=== PATIENT | female | born 1995 | race African-American/Black ===

== ENCOUNTER 2020-04-18 16:58 | Emergency (ER) | payer OTHER, SELFPAY ==
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
[2020-04-18 18:30] VITALS: BP 121/64; PULSE 71; RESP 14; TEMP 37; O2SAT 98
[2020-04-18 19:19] VITALS: BP 120/64; PULSE 71; RESP 16; TEMP 37; O2SAT 99; BMI 27.1
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
[2020-04-18 20:30] VITALS: BP 122/90; PULSE 89; RESP 18; TEMP 36.6
== END 2020-04-18 20:45 | disposition home or self-care (01) ==
PROVIDERS: Emergency Provider Emergency Medicine; PCP Internal Medicine
DX: S13.4XXA Sprain of ligaments of cervical spine, initial encounter (principal); V43.52XA Car driver injured in collision with other type car in traffic accident, initial encounter; Y93.89 Activity, other specified; Y92.414 Local residential or business street as the place of occurrence of the external cause; Y99.8 Other external cause status
CPT/HCPCS: 71046; 73030; 99283; 99284

== ENCOUNTER 2020-06-05 14:36 | Outpatient (REF) | payer OTHER, SELFPAY | END 2020-06-05 14:37 | disposition home or self-care (01) | LOC: HO.LAB 14:36 | PROVIDERS: PCP Internal Medicine; Visit Provider Internal Medicine | DX: Z20.828 Contact with and (suspected) exposure to other viral communicable diseases (principal) | CPT/HCPCS: C9803; U0003 ==

== ENCOUNTER 2020-06-05 15:08 | Outpatient (REF) | payer OTHER, SELFPAY ==
[2020-06-05 15:57] LABS: MANUAL DIFF FLAG NO
[2020-06-05 16:00] LABS: Basophils Percent Auto 0.4 % (0-2); Eosinophils Absolute Auto 0.5 X10*3/uL (0.0-0.4); Eosinophils Percent Auto 8.6 % (0-4); Hematocrit 37.1 % (37-47); Hemoglobin 11.1 g/dl (12.0-16.0); Imm Gran Abs Auto 0.01 X10*3/uL (0.00-0.03); Imm Gran Pct Auto 0.2 % (0.0-0.4); Lymphocytes Absolute Auto 1.3 X10*3/uL (1.2-4.9); Lymphocytes Percent Auto 22.9 % (20-40); Mean Corpuscular HGB Conc 29.9 g/dl (31.0-35.0); Mean Corpuscular Hemoglobin 24.1 pg (27.0-33.0); Mean Corpuscular Volume 80.5 fL (80-98); Mean Platelet Volume 10.8 fL (9.4-12.3); Monocytes Absolute Auto 0.4 X10*3/uL (0.1-1.2); Monocytes Percent Auto 7.7 % (2-11); Neutrophils Absolute Auto 3.3 X10*3/uL (2.0-8.3); Neutrophils Percent Auto 60.2 % (45-73); Platelet Count 243 X10*3/uL (160-400); Red Blood Count 4.61 X10*6/uL (4.20-5.50); Red Cell Distribution Width 13.6 % (11.0-16.0); White Blood Count 5.5 X10*3/uL (4.8-10.8)
[2020-06-05 16:32] LABS: Iron 16 mcg/dL (30-160); Percent Iron Saturation 4 % (15-50); Total Iron Binding Capacity 444 mcg/dL (228-428); Unsaturated Iron Binding 428 ug/dL
[2020-06-09 10:12] LABS: Vitamin D 25-OH, D2 <4 ng/mL; Vitamin D 25-OH, D3 21 ng/mL; Vitamin D 25-OH, Total 21 ng/mL (30-100)
== END 2020-06-05 15:09 | disposition home or self-care (01) ==
LOC: HO.LAB 15:08
PROVIDERS: PCP Internal Medicine; Visit Provider Internal Medicine
DX: K92.1 Melena (principal); E55.9 Vitamin D deficiency, unspecified; K60.2 Anal fissure, unspecified; Z79.899 Other long term (current) drug therapy
CPT/HCPCS: 36415; 82306; 83540; 85025; 99212

== ENCOUNTER 2020-09-30 12:16 | Outpatient (REF) | payer OTHER, SELFPAY ==
[2020-10-02 08:10] LABS: HBS Num1 > 1000.00 mIU/mL (0-7.99); HBc Num1 0.07 S/CO (0.00-0.79); Hepatitis B Core Antibody Nonreactive (Nonreactive); ~Hepatitis B Surface Antibody REACTIVE (Nonreactive)
[2020-10-02 08:27] LABS: HBsAGNum1 0.16 S/CO (0.00-0.99); Hepatitis B Surface Antigen Negative (Negative)
== END 2020-09-30 12:17 | disposition home or self-care (01) ==
LOC: HO.LAB 12:16
PROVIDERS: PCP Internal Medicine; Visit Provider Internal Medicine
DX: Z92.29 Personal history of other drug therapy (principal)
CPT/HCPCS: 36415; 86704; 86706; 87340

== ENCOUNTER 2021-01-16 15:41 | Outpatient (REF) | payer OTHER, SELFPAY ==
--- NOTE | ~2021-01-16 | XR_ITS ---
EXAMINATION: XR KNEE, RIGHT CLINICAL INFORMATION: Stiffness of right knee COMPARISON: None TECHNIQUE: Four views of the right knee. FINDINGS: Bones and soft tissues are normal. No fracture or joint effusion. Alignment is anatomic. Joint spaces are well maintained. No abnormal soft tissue calcification. XR/XR knee RT 3V IMPRESSION: Normal right knee.
== END 2021-01-16 15:42 | disposition home or self-care (01) ==
LOC: HO.XRAY 15:41
PROVIDERS: PCP Internal Medicine; Visit Provider Nurse Practitioner Family
DX: M25.661 Stiffness of right knee, not elsewhere classified (principal)
CPT/HCPCS: 73562

== ENCOUNTER 2021-02-18 14:36 | Outpatient (REF) | payer OTHER, SELFPAY ==
[2021-02-18 15:24] LABS: MANUAL DIFF FLAG NO
[2021-02-18 15:36] LABS: Basophils Percent Auto 0.2 % (0-2); Eosinophils Absolute Auto 0.1 X10*3/uL (0.0-0.4); Eosinophils Percent Auto 2.3 % (0-4); Hematocrit 38.9 % (37-47); Imm Gran Abs Auto 0.01 X10*3/uL (0.00-0.03); Imm Gran Pct Auto 0.2 % (0.0-0.4); Lymphocytes Absolute Auto 1.6 X10*3/uL (1.2-4.9); Mean Corpuscular HGB Conc 30.8 g/dl (31.0-35.0); Mean Corpuscular Hemoglobin 24.7 pg (27.0-33.0); Mean Corpuscular Volume 80.2 fL (80-98); Mean Platelet Volume 11.2 fL (9.4-12.3); Monocytes Absolute Auto 0.3 X10*3/uL (0.1-1.2); Monocytes Percent Auto 6.1 % (2-11); Neutrophils Absolute Auto 3.5 X10*3/uL (2.0-8.3); Neutrophils Percent Auto 63.2 % (45-73); Platelet Count 203 X10*3/uL (160-400); Red Blood Count 4.85 X10*6/uL (4.20-5.50); Red Cell Distribution Width 13.9 % (11.0-16.0); White Blood Count 5.6 X10*3/uL (4.8-10.8)
[2021-02-18 15:50] LABS: Iron 27 mcg/dL (30-160); Percent Iron Saturation 6 % (15-50); Total Iron Binding Capacity 449 mcg/dL (228-428); Unsaturated Iron Binding 422 ug/dL
== END 2021-02-18 14:37 | disposition home or self-care (01) ==
LOC: HO.LAB 14:36
PROVIDERS: PCP Internal Medicine; Visit Provider Internal Medicine
DX: Z01.84 Encounter for antibody response examination (principal); D64.9 Anemia, unspecified; Z92.29 Personal history of other drug therapy
CPT/HCPCS: 36415; 83540; 85025; 86735; 86765

== ENCOUNTER 2021-05-01 14:53 | Outpatient (REF) | payer OTHER, SELFPAY ==
[2021-05-01 15:10] LABS: MANUAL DIFF FLAG NO
[2021-05-01 15:23] LABS: Basophils Percent Auto 0.3 % (0-2); Eosinophils Absolute Auto 0.2 X10*3/uL (0.0-0.4); Eosinophils Percent Auto 2.5 % (0-4); Hematocrit 41.5 % (37-47); Hemoglobin 13.2 g/dl (12.0-16.0); Imm Gran Abs Auto 0.02 X10*3/uL (0.00-0.03); Imm Gran Pct Auto 0.3 % (0.0-0.4); Lymphocytes Absolute Auto 1.5 X10*3/uL (1.2-4.9); Lymphocytes Percent Auto 24.2 % (20-40); Mean Corpuscular HGB Conc 31.8 g/dl (31.0-35.0); Mean Corpuscular Volume 81.9 fL (80-98); Mean Platelet Volume 10.4 fL (9.4-12.3); Monocytes Absolute Auto 0.4 X10*3/uL (0.1-1.2); Monocytes Percent Auto 5.8 % (2-11); Neutrophils Absolute Auto 4.3 X10*3/uL (2.0-8.3); Neutrophils Percent Auto 66.9 % (45-73); Platelet Count 196 X10*3/uL (160-400); Red Blood Count 5.07 X10*6/uL (4.20-5.50); Red Cell Distribution Width 15.5 % (11.0-16.0); White Blood Count 6.4 X10*3/uL (4.8-10.8)
[2021-05-01 16:03] LABS: Iron 406 mcg/dL (30-160); Percent Iron Saturation 93 % (15-50); Total Iron Binding Capacity 436 mcg/dL (228-428); Unsaturated Iron Binding 30 ug/dL
== END 2021-05-01 14:54 | disposition home or self-care (01) ==
LOC: HO.LAB 14:53
PROVIDERS: PCP Internal Medicine; Visit Provider Internal Medicine
DX: D64.9 Anemia, unspecified (principal)
CPT/HCPCS: 36415; 83540; 85025

== ENCOUNTER 2021-05-31 09:52 | Outpatient (REF) | payer OTHER, SELFPAY ==
[2021-05-31 10:45] LABS: Alanine Aminotransferase 10 U/L (0-31); Albumin Level 4.6 g/dL (3.5-5.0); Alkaline Phosphatase 72 U/L (39-117); Anion Gap 12 (12-20); Aspartate Amino Transferase 14 U/L (5-31); Bilirubin Total 0.5 mg/dL (0.0-1.0); Blood Urea Nitrogen 7 mg/dL (9-16); Calcium 9.2 mg/dL (8.4-10.2); Carbon Dioxide 25 mmol/L (22-29); Chloride 107 mmol/L (96-108); Estimated Glomerular Filt Rate > 60; Glucose Fasting 86 mg/dL (60-99); Potassium 4.3 mmol/L (3.3-5.1); Sodium 140 mmol/L (135-145); Total Protein 7.9 g/dL (6.5-8.0)
[2021-05-31 11:08] LABS: Thyroid Stimulating Hormone 0.72 uIU/mL (0.32-4.0)
[2021-06-04 14:36] LABS: Vitamin D 25-OH, D2 <4 ng/mL; Vitamin D 25-OH, D3 26 ng/mL; Vitamin D 25-OH, Total 26 ng/mL (30-100)
== END 2021-05-31 09:53 | disposition home or self-care (01) ==
LOC: HO.LAB 09:52
PROVIDERS: PCP Internal Medicine; Visit Provider Internal Medicine
DX: R53.83 Other fatigue (principal); E55.9 Vitamin D deficiency, unspecified
CPT/HCPCS: 36415; 80053; 82306; 84443

== ENCOUNTER 2021-08-14 09:35 | Outpatient (REF) | payer OTHER, SELFPAY ==
[2021-08-14 09:55] LABS: Binax Internal Control QC Valid; Binax Now Covid-19 Ag Negative (Negative)
== END 2021-08-14 09:36 | disposition home or self-care (01) ==
LOC: HO.LAB 09:35
PROVIDERS: PCP Hospitalist; Visit Provider Internal Medicine
DX: Z20.822 Contact with and (suspected) exposure to COVID-19 (principal)
CPT/HCPCS: C9803

== ENCOUNTER 2023-01-26 13:20 | Outpatient (REF) | payer OTHER, SELFPAY ==
[2023-01-28 16:08] LABS: TS Negative Control Passed; TS Panel A 0; TS Panel B 0; TS Positive Control Passed; TSpotTB Negative (Negative)
== END 2023-01-26 13:21 | disposition home or self-care (01) ==
LOC: HO.LAB 13:20
PROVIDERS: PCP Nurse Practitioner Family; Visit Provider Nurse Practitioner Family
DX: Z11.1 Encounter for screening for respiratory tuberculosis (principal)
CPT/HCPCS: 36415; 86481

== ENCOUNTER 2023-02-18 11:23 | Outpatient (AMB) | payer OTHER, SELFPAY ==
--- NOTE | 2023-02-18 11:38 | MHC.OFFWIV ---
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 She states that she has no appreciable runny nose, postnasal drip, mucus production, headache or dizziness, malaise or myalgias, nausea vomiting or diarrhea, shortness breast, or other significant associated symptoms. She states that the cough some type worsen to the point where she wretches, however she has not vomited. No compromising issues. She did have asthma as a child but it had resolved for many years. She did not test for COVID yet. No other sick contacts. Reviewed past medical history [facility] Medical History Anal fissure Bloody stools Hemorrhoids Immunization series complete Stiffness of right knee Tiredness Surgical History H/O heart surgery History of excision of pilonidal cyst History of removal of cyst History of wisdom tooth extraction Family History Father Asthma Allergies Mother Anemia Maternal Grandmother Hypertension Multiple myeloma Paternal Grandfather Hypertension Prostate cancer Paternal Grandmother Chronic mental illness Other Mental health disorder Social History Housing: House Alcohol intake: current Alcohol intake frequency: holidays/special occasions only Alcohol type: beer Patient Tobacco Use Status: Never used Tobacco e-Cigarette/Vaping Use: Never Used Second Hand Smoke Exposure: No service: No Current occupational status: employed Cognitive needs: No Hearing needs: No Vision needs: No Review of Systems Const All systems reviewed & are unremarkable except as noted in HPI and below Physical Exam Vital Signs: Last Vital Signs Temp 98.1 F 02/18/23 11:39 Pulse 98 02/18/23 11:39 BP 110/60 02/18/23 11:39 Pulse Ox 100 02/18/23 11:39 Oxygen Delivery Method Room Air 02/18/23 11:39 Const General: cooperative, healthy appearing, comfortable, no acute distress, alert, awake, Physically active and well groomed; No anxious, diaphoretic, ill appearing, intoxicated appearing, poor hygiene or tired appearing Nutritional Appearance: average body habitus Orientation/consciousness: oriented to person Limitations: no limitations HEENT Head: Yes normal to inspection, Yes normocephalic and Yes atraumatic Ears: hearing grossly normal bilaterally, external ears normal, TM's normal bilaterally and EAC's normal General nose exam: Normal external nose present, Normal nares present, No nasal polyps present, Normal nasal mucous membranes and turbinates present, Normal septum present and No nasal discharge present Face and sinus: Yes normal facial exam, Yes sinuses nontender and Yes face symmetric Mouth: Normal oral and palatal mucosa present, lip normal and tongue normal Throat: Yes posterior oropharynx normal, No peritonsillar mass, No postnasal drainage, No uvular edema and No cobblestoning Eyes General: appearance normal, both eyes and all related structures Neck Neck: Yes normal visual inspection, Yes full ROM, Yes trachea midline, Yes supple and No anterior neck swelling Chest Chest palpation & inspection: normal palpation of entire chest wall Resp Effort & Inspection: normal respiratory effort, able to speak in complete sentences, no audible wheezes, Actively coughing (Occasional), no grunting, not labored, no nasal flaring, no respiratory distress, no retractions, no stridor, not tachypneic, no tripod positioning, no use of accessory muscles and symmetric chest movement Auscultation: clear to auscultation bilaterally, no crackles, no rales, no rhonchi, no wheezes, lung sounds not diminished and No rub present Cardio Palpation: normal PMI Rate: regular rate Rhythm: regular rhythm Heart sounds: S1 normal heart sound present and S2 normal heart sound present Skin Other: Good color, warm and dry Neuro General: oriented to person Psych Appearance: grossly normal Mental Status: mental status grossly normal Speech and movement: Normal speech and movement present Affect: normal affect Attitude: cooperative Thought process: Normal thought process present Insight: Good insight present (Psych) Judgement: Good judgement present (Psych) Assessment & Plan Assessment & Plan (1) Tracheobronchitis: Code(s): J40 - Bronchitis, not specified as acute or chronic Plan: Patient likely with a mild case of tracheobronchitis. Not actively coughing much on exam, and no rhonchi or wheezing heard. She has not needed albuterol for many years, and I do not think she needs it prescribed today. I will write her for short course of prednisone, and she can trial Tessalon Perles. Pending rapid test results for COVID, and PCR for flu COVID and RSV. To the length time of symptoms, however might be too late. Note given to return to work tomorrow if symptoms have improved with the meds. She would already be at least 6 days out from symptom onset at that point, and eligible to return to work even if it was COVID. She knows to follow up if symptoms persist or worsen Orders: Orders COVID-19 ID NOW ([facility]) 02/18/23 R05.9 - Cough, unspecified SARS-CoV2/FLU/RSV 02/18/23 R05.9 - Cough, unspecified BinaxNOW Covid-19 Ag 02/18/23 Z20.822 - Contact with and (suspected) exposure to COVID-19 Medications: New prednisone 40 mg (2 x 20 mg) PO DAILY 5 days 10 tabs 0RF benzonatate 200 mg PO BID-TID PRN 30 caps 0RF cough Coding Level of Care Code Est Pt Level 4 (05081) Diagnoses Tracheobronchitis J40
[2023-02-18 11:39] VITALS: BP 110/60; PULSE 98; TEMP 36.7; O2SAT 100
== END 2023-02-18 13:30 | disposition home or self-care (01) ==
PROVIDERS: PCP Nurse Practitioner Family; Visit Provider Physician Assistant Medical
DX: J40 Bronchitis, not specified as acute or chronic (principal)
CPT/HCPCS: 99214

== ENCOUNTER 2023-02-18 12:13 | Outpatient (REF) | payer OTHER, SELFPAY ==
[2023-02-18 14:27] LABS: Binax Now Covid-19 Ag Negative (Negative); Binax Performed by: HO.BONILM
[2023-02-18 14:28] LABS: Binax Internal Control QC Valid
[2023-02-18 21:34] LABS: Influenza A PCR NEGATIVE (Negative); Influenza B PCR NEGATIVE (Negative); Resp Syncy Virus RNA Qual PCR NEGATIVE (Negative); SARS COV2 PCR INHOUSE NEGATIVE (Negative)
== END 2023-02-18 12:14 | disposition home or self-care (01) ==
LOC: HO.HMGCLDS 12:13
PROVIDERS: PCP Nurse Practitioner Family; Visit Provider Physician Assistant Medical
DX: Z20.822 Contact with and (suspected) exposure to COVID-19 (principal); R05.9 Cough, unspecified
CPT/HCPCS: 0241U; 87635; 87811; C9803

== ENCOUNTER 2023-04-05 10:34 | Outpatient (AMB) | payer OTHER, SELFPAY ==
[2023-04-05 10:44] VITALS: BP 118/66; RESP 12; TEMP 36.6; O2SAT 99; BMI 23.3
--- NOTE | 2023-04-05 10:44 | MHC.PC.OV ---
Vital Signs 04/05/23 10:44 Height 5 ft 6 in Weight 144 lb 6 oz BMI 23.3 BP 118/66 Blood Pressure Location Rt brachial Position Sitting Respiration 12 Pulse Source Pulse Oximeter Temp 97.8 F Temp Source Temporal Artery Scan Pulse Oximetry (%) 99 Oxygen Delivery Method Room Air Intake Visit Reasons: Blood Clot On Right Lung 03/31/23 [facility] Intake Note: Patient needs refill on eliquis. Patient states that she has discomfort on right side still and hasnt been sleeping due to her still being scared that if she lays down something will happen. Patient states she has been having a flutter feeling under her right best almost like a light pulse. Patient would like a work note for today. Patient states that she was told that she would need to take eliquis for minimum of 3 moths, but hospital gave her 30 day supply only. [employer] Required: No Accompanied by: Self / Same As Patient Allergies apple Allergy (Severe, Verified 04/05/23 11:09) hives fluconazole Allergy (Severe, Verified 04/05/23 11:09) hives Medication List - Last Reconciled 04/05/23 by Darwin Shultz CNP apixaban (Eliquis DVT-PE Treat 30D Start) 5 mg PO BID Tobacco use date assessed: 09/18/21 Dental Screening Dental Screen Date: 04/05/23 Did you have a dental visit in the last 12 months?: Yes Did you have a dental problem in the last 6 months where you did not have access to dental care?: No Was dental information given to patient?: Patient has dentist HPI HPI Comments History of Present Illness Details 27-year-old female presents for a follow-up visit. She presented at [facility] ED on 03/31/2023 with complaints of 3 days of worsening right lower chest pain and back pain. Labs unremarkable except D-dimer elevated at 1421, EKG revealed normal sinus rhythm without acute ischemia, chest x-ray was normal, CT chest pulmonary angiogram revealed pulmonary emboli in the segmental and subsegmental arteries of the right lower lobe. No evidence of right heart strain; and ground-glass obesity in the posterior right lower lobe, which may represent ischemic changes or developing infarcts. She was started on Eliquis, 10 mg by mouth twice daily for 7 days followed by 5 mg twice daily, and instructed to discontinue OCP. She was deemed to be hemodynamically stable and was discharged with close outpatient follow-up. She notes she continue to feel pain to her lateral right side. She went for further evaluation at [facility] ED. She was prescribed oxycodone every 4 hours as needed for pain. She notes that the pain in off and on with short duration. No difficulty breathing or chest pain. Nonsmoker. No history of DVT. 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 She reports intermittent whistling sound as the blood flows through aorta. [facility] Medical History Pulmonary embolism Tiredness Stiffness of right knee Immunization series complete Anal fissure Bloody stools Hemorrhoids Surgical History History of excision of pilonidal cyst History of wisdom tooth extraction History of removal of cyst H/O heart surgery Family History Father Asthma Allergies Mother Anemia Maternal Grandmother Hypertension Multiple myeloma Paternal Grandfather Hypertension Prostate cancer Paternal Grandmother Chronic mental illness Other Mental health disorder Social History Housing: House Alcohol intake: current Alcohol intake frequency: holidays/special occasions only Alcohol type: beer Patient Tobacco Use Status: Never used Tobacco e-Cigarette/Vaping Use: Never Used Second Hand Smoke Exposure: No service: No Current occupational status: employed Cognitive needs: No Hearing needs: No Vision needs: No Questionnaire Thrive Questionnaire Date Thrive assessed: 08/07/21 ALEA-7 AMB Questionnaire ALEA-7 Date ALEA - 7 assessed: 09/18/21 Source: Developed by Drs. Anders Lynn, Tahmina Crook, Juanjose Osborne and colleagues, with an educational negin from [employer]. Review of Systems Const Details: Const Denies chills, Denies fatigue, Denies fever(s), Denies headache(s) and Denies weakness ENT Denies dizziness and Denies headache(s) Card Denies chest pain, Denies lightheadedness, Denies dyspnea and Denies other (Palpitations) Resp Denies cough, Denies dyspnea, Denies wheezing and Denies other ( shortness of breath) GI Denies abdominal pain, Denies melena, Denies hematochezia, Denies change in bowel habits, Denies dyspepsia and Denies nausea Denies hematuria and Denies dysuria Musc Denies abnormal gait, Denies myalgias, Denies arthralgias, Denies numbness and Denies tingling Skin/Breast Denies rash, Denies unusual bruising and Denies wounds Neuro Denies abnormal gait, Denies dizziness, Denies headache(s), Denies memory loss, Denies numbness, Denies Sensory deficit (Neuro), Denies tingling and Denies weakness Psych Denies anxiety, Denies depression, Denies memory loss Endo Denies cold intolerance, Denies fatigue, Denies heat intolerance, Denies polydipsia and Denies polyuria Aller/Immun Denies wheezing Physical exam (Primary Care) Vital Signs: Last Vital Signs Temp 97.8 F 04/05/23 10:44 Resp 12 04/05/23 10:44 BP 118/66 04/05/23 10:44 Pulse Ox 99 04/05/23 10:44 Oxygen Delivery Method Room Air 04/05/23 10:44 BMI result Body Mass Index 23.3 Tobacco/Smoking Status: Tobacco use Status Tobacco use date assessed 09/18/21 04/05/23 10:59 Patient Tobacco Use Status Never used Tobacco 04/05/23 10:59 e-Cigarette/Vaping Use Never Used 04/05/23 10:59 Thrive Assessment: Date of Thrive Assessment Date Thrive assessed 08/07/21 04/05/23 10:59 Const Other: General: no acute distress and well developed Nutritional Appearance: well nourished Orientation/consciousness: patient oriented x3 HENMT Head: Yes normocephalic and Yes atraumatic Eyes General: appearance normal, both eyes and all related structures Pupils: Equal, round and reactive pupils present EOM: EOMs intact bilaterally Resp Effort & Inspection: normal respiratory effort Auscultation: expiratory and inspiratory wheezing in the left upper and lower lobes Cardio Rate: regular rate Rhythm: regular rhythm Heart sounds: S1 normal heart sound present, S2 normal heart sound present, no gallops, no murmurs and no rubs GI Palpation (GI): No Abdominal aortic bruit present, Soft to palpation, nontender, No hepatosplenomegaly present and No Rebound tenderness present Auscultation: normal bowel sounds General: Yes no CVA tenderness Back/Spine/Pelvis Back: no CVA tenderness Cervical Spine: cervical ROM normal and No Cervical spine tenderness Thoracic/Lumbar Spine: thoraco-lumbar ROM normal, No pain with thoraco-lumbar ROM, No thoracic spinal tenderness and No lumbar spinal tenderness Extrem General: Yes normal to inspection, No edema and No calf tenderness Skin General: warm and dry. Normal skin color. Normal skin turgor Lesions: no lesions Rashes: no rashes Trauma: no lacerations or abrasions Wounds: no wounds Nails: normal Neuro General: patient oriented x3, gait normal and no focal neuro deficit Cranial nerves: Yes Equal, round and reactive pupils present Cognition (Neuro): normal cognition Gait exam (Neuro): Normal gait present Sensory Exam: No Sensory deficit (Neuro) Psych Appearance: grossly normal Affect: normal affect Attitude: cooperative Thought process: Normal thought process present Assessment and Plan Assessment & Plan (1) Pulmonary embolism on left: Code(s): I26.99 - Other pulmonary embolism without acute cor pulmonale Plan: Patient presented for 3 days of worsening right lower chest pain and back pain to [facility] ED. D-dimer was elevated at 1421. CT chest pulmonary angiogram revealed pulmonary emboli in the segmental and subsegmental arteries of the right lower lobe. No evidence of right heart strain; and ground-glass obesity in the posterior right lower lobe, which may represent ischemic changes or developing infarcts. She was discharged home on Eliquis with recommendation to follow-up outpatient. She notes she has been taking Eliquis as prescribed. She was also prescribed oxycodone for pain to her right rib cage at a subsequent visit and notes the medication has been providing pain relief. Physical exam is normal except expiratory and inspiratory wheezing in the left upper and lower lobes. Chest x-ray ordered to rule out abnormalities or new PE to the right lung. She was prescribed 1 month supply of Eliquis. Additional 1 month supply with 1 refill ordered today. Continue to take oxycodone for pain. May also take Tylenol for pain or discomfort. Advised to avoid taking NSAIDs such as ibuprofen which may increase risk of bleeding on Eliquis. CT chest pulmonary angiogram ordered; patient advised to get CT done at the completion of 3 months of Eliquis therapy. Referred to Hematology for possible explanation of etiology of pulmonary emboli. Encouraged to schedule an appointment to establish with a PCP. Advised to return sooner with worsening or new symptoms. She verbalized understanding and agreed with treatment plan. Orders: Orders CT angio chest PE protocol 3 Months I26.99 - Other pulmonary embolism without acute cor pulmonale XR chest 2V 04/07/23 I26.99 - Other pulmonary embolism without acute cor pulmonale Referrals Hematology & Oncology Referral I26.99 - Other pulmonary embolism without acute cor pulmonale Medications: New apixaban (Eliquis) 5 mg PO BID 30 days 60 tabs 1RF Coding Level of Care Code Est Pt Level 3 (09546) Diagnoses Pulmonary embolism on left I26.99
== END 2023-04-05 11:15 | disposition home or self-care (01) ==
PROVIDERS: PCP Nurse Practitioner Family; Visit Provider Nurse Practitioner Family
DX: I26.99 Other pulmonary embolism without acute cor pulmonale (principal)
CPT/HCPCS: 99213

== ENCOUNTER 2023-04-07 17:00 | Outpatient (REF) | payer OTHER, SELFPAY ==
--- NOTE | ~2023-04-07 | XR_ITS ---
EXAMINATION: XR CHEST CLINICAL INFORMATION: Pulmonary embolism. COMPARISON: Chest radiograph dated 04/18/2020. TECHNIQUE: 2 views of the chest were obtained. FINDINGS: The lungs are clear. The cardiomediastinal silhouette is normal in size. There is no pleural effusion or pneumothorax. No acute osseous abnormality. XR/XR chest 2V IMPRESSION: No acute cardiopulmonary findings.
== END 2023-04-07 17:01 | disposition home or self-care (01) ==
LOC: HO.XRAY 17:00
PROVIDERS: PCP Nurse Practitioner Family; Visit Provider Nurse Practitioner Family
DX: I26.99 Other pulmonary embolism without acute cor pulmonale (principal)
CPT/HCPCS: 71046

== ENCOUNTER 2023-04-16 09:38 | Outpatient (AMB) | payer OTHER, SELFPAY ==
[2023-04-16 09:42] VITALS: BP 116/62; PULSE 104; RESP 12; TEMP 36.7; O2SAT 99; BMI 22.0
--- NOTE | 2023-04-16 09:42 | A.OFFPC_ITS ---
Vital Signs 04/16/23 09:42 Height 5 ft 6 in Weight 136 lb 2 oz BMI 22.0 BP 116/62 Blood Pressure Location Rt brachial Position Sitting Respiration 12 Pulse 104 H Pulse Source Pulse Oximeter Temp 98.1 F Temp Source Oral Pulse Oximetry (%) 99 Oxygen Delivery Method Room Air Oxygen Flow Rate 98.1 Intake Visit Reasons: FMLA paperwork Intake Note: Patient is here for for FMLA paperwork for blood clot in right lung. Patient is no longer on control IUD, device came out with a blood clot. She would like to talk about iron gummies. Allergies apple Allergy (Severe, Verified 04/16/23 10:18) hives fluconazole Allergy (Severe, Verified 04/16/23 10:18) hives Medication List - Last Reconciled 04/16/23 by Darwin Shultz CNP apixaban (Eliquis) 5 mg PO BID 30 days medroxyprogesterone 20 mg PO TID Tobacco use date assessed: 04/16/23 Dental Screening Dental Screen Date: 04/16/23 Did you have a dental visit in the last 12 months?: Yes Did you have a dental problem in the last 6 months where you did not have access to dental care?: No Was dental information given to patient?: Patient has dentist HPI HPI Comments History of Present Illness Details 27-year-old female presents with request s for time of work for the times she has been treated for PE. She was evaluated at [facility] ED on 03/31/2023 for 3 days of worsening right lower chest pain and back pain. She was diagnosed with pulmonary embolism of the right lung. She is currently on Eliquis 5 mg twice daily. She was evaluated in office on 04/05/2023. Additional refill of Eliquis was sent to the pharmacy. CT chest pulmonary angiogram was ordered for the patient to take after a 3 month course of Eliquis. She denies difficulty breathing or chest pain. She notes that she is no longer on IUD contraception. She notes she experienced vaginal bleeding with clots, a week before her menstrual cycle. She notes that the bleeding continues for 14 days and worsened 5 days ago; she went to the ED same day and was informed that her IUD device had spontaneously came out. She states that the bleeding continued and she went again to the ED and was prescribed medroxyprogestrone and iron supplements. She reports continued bleeding with clots, no longer heavy, and thinks she is menstruating. She reports associated fatigue. Review of ED notes: H/H were slightly low, 11.4/36.4 respectively, MCV was normal, 83.3, PLT count was normal, 223. Medroxyprogesterone 20mg Q8H and Ferrous Sulfate 325mg daily were prescribed. She was advised to follow-up with OBGYN in 3 weeks. She notes she has an appointment with [facility] later next month, however, she will call to schedule an earlier appointment. [facility] Medical History Pulmonary embolism Tiredness Stiffness of right knee Immunization series complete Anal fissure Bloody stools Hemorrhoids Surgical History History of excision of pilonidal cyst History of wisdom tooth extraction History of removal of cyst H/O heart surgery Family History Father Asthma Allergies Mother Anemia Maternal Grandmother Hypertension Multiple myeloma Paternal Grandfather Hypertension Prostate cancer Paternal Grandmother Chronic mental illness Other Mental health disorder Social History Housing: House Alcohol intake: current Alcohol intake frequency: holidays/special occasions only Alcohol type: beer Patient Tobacco Use Status: Never used Tobacco e-Cigarette/Vaping Use: Never Used Second Hand Smoke Exposure: No service: No Current occupational status: employed 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 Anders Lynn, Tahmina Crook, Juanjose Osborne and colleagues, with an educational negin from [employer]. Review of Systems Const Details: Const Denies chills, Denies fatigue, Denies fever(s), Denies headache(s) and Denies weakness ENT Denies dizziness and Denies headache(s) Card Denies chest pain, Denies lightheadedness, Denies dyspnea and Denies other (Palpitations) Resp Denies cough, Denies dyspnea, Denies wheezing and Denies other ( shortness of breath) GI Denies abdominal pain, Denies melena, Denies hematochezia, Denies change in bowel habits, Denies dyspepsia and Denies nausea Denies hematuria and Denies dysuria Musc Denies abnormal gait, Denies myalgias, Denies arthralgias, Denies numbness and Denies tingling Skin/Breast Denies rash, Denies unusual bruising and Denies wounds Neuro Denies abnormal gait, Denies dizziness, Denies headache(s), Denies memory loss, Denies numbness, Denies Sensory deficit (Neuro), Denies tingling and Denies weakness Psych Denies anxiety, Denies depression, Denies memory loss Endo Denies cold intolerance, Denies fatigue, Denies heat intolerance, Denies polydipsia and Denies polyuria Aller/Immun Denies wheezing Physical exam (Primary Care) Vital Signs: Last Vital Signs Temp 98.1 F 04/16/23 09:42 Pulse 104 H 04/16/23 09:42 Resp 12 04/16/23 09:42 BP 116/62 04/16/23 09:42 Pulse Ox 99 04/16/23 09:42 Oxygen Delivery Method Room Air 04/16/23 09:42 Oxygen Flow Rate 98.1 04/16/23 09:42 BMI result Body Mass Index 22.0 Tobacco/Smoking Status: Tobacco use Status Tobacco use date assessed 04/16/23 04/16/23 09:53 Patient Tobacco Use Status Never used Tobacco 04/16/23 09:53 e-Cigarette/Vaping Use Never Used 04/16/23 09:53 Thrive Assessment: Date of Thrive Assessment Date Thrive assessed 08/07/21 04/16/23 09:53 Const Other: General: no acute distress and well developed Nutritional Appearance: well nourished Orientation/consciousness: patient oriented x3 HENMT Head: Yes normocephalic and Yes atraumatic Eyes General: appearance normal, both eyes and all related structures Pupils: Equal, round and reactive pupils present EOM: EOMs intact bilaterally Resp Effort & Inspection: normal respiratory effort Auscultation: clear to auscultation bilaterally Cardio Rate: regular rate Rhythm: regular rhythm Heart sounds: S1 normal heart sound present, S2 normal heart sound present, no gallops, no murmurs and no rubs GI Palpation (GI): No Abdominal aortic bruit present, Soft to palpation, nontender, No hepatosplenomegaly present and No Rebound tenderness present Auscultation: normal bowel sounds General: Yes no CVA tenderness Back/Spine/Pelvis Back: no CVA tenderness Cervical Spine: cervical ROM normal and No Cervical spine tenderness Thoracic/Lumbar Spine: thoraco-lumbar ROM normal, No pain with thoraco-lumbar ROM, No thoracic spinal tenderness and No lumbar spinal tenderness Extrem General: Yes normal to inspection, No edema and No calf tenderness Skin General: warm and dry. Normal skin color. Normal skin turgor Lesions: no lesions Rashes: no rashes Trauma: no lacerations or abrasions Wounds: no wounds Nails: normal Neuro General: patient oriented x3, gait normal and no focal neuro deficit Cranial nerves: Yes Equal, round and reactive pupils present Cognition (Neuro): normal cognition Gait exam (Neuro): Normal gait present Sensory Exam: No Sensory deficit (Neuro) Psych Appearance: grossly normal Affect: normal affect Attitude: cooperative Thought process: Normal thought process present Assessment and Plan Assessment & Plan (1) Mild anemia: Code(s): D64.9 - Anemia, unspecified Plan: Recent H&H levels were slightly low Anemia and fatigue may be attributed to heavy menstrual bleeding Take ferrous sulfate as prescribed Follow-up with OBGYN as planned Go to the ED with for persistent or worsening bleeding CBC and iron profile ordered. Advised to get blood work done today Will us to check TSH and vitamin-D levels to determine other causes of fatigue Advised to get repeat CBC and iron profile labs done before her next visit Follow-up in 6 weeks or return sooner with worsening or new symptoms Verbalized understanding and agreed with treatment plan. (2) Menorrhagia: Code(s): N92.0 - Excessive and frequent menstruation with regular cycle Plan: As above (3) Fatigue: Code(s): R53.83 - Other fatigue Plan: As above (4) Pulmonary embolism on left: Code(s): I26.99 - Other pulmonary embolism without acute cor pulmonale Plan: No current symptoms Continue to take Eliquis as prescribed Reminded to get CT chest angiogram done in June [facility] paperwork completed and signed for work coverage between 03/31/2023 and 04/30/2023 Follow-up with symptoms or concerns Verbalized understanding and agreed with treatment plan. Orders: Orders IRON PROFILE Today D64.9 - Anemia, unspecified, N92.0 - Excessive and frequent menstruation with regular cycle Complete Blood Count no Diff 6 Weeks D64.9 - Anemia, unspecified Complete Blood Count no Diff Today D64.9 - Anemia, unspecified, N92.0 - Excessive and frequent menstruation with regular cycle Vitamin D 25-OH Total Today R53.83 - Other fatigue TSH reflex Free T4 Today R53.83 - Other fatigue IRON PROFILE 6 Weeks D64.9 - Anemia, unspecified Coding Level of Care Code Est Pt Level 3 (96308) Diagnoses Mild anemia D64.9 Menorrhagia N92.0 Fatigue R53.83 Pulmonary embolism on left I26.99
== END 2023-04-16 11:39 | disposition home or self-care (01) ==
PROVIDERS: PCP Nurse Practitioner Family; Visit Provider Nurse Practitioner Family
DX: D64.9 Anemia, unspecified (principal); N92.0 Excessive and frequent menstruation with regular cycle; R53.83 Other fatigue; I26.99 Other pulmonary embolism without acute cor pulmonale
CPT/HCPCS: 99214

== ENCOUNTER 2023-04-16 11:18 | Outpatient (REF) | payer OTHER, SELFPAY ==
[2023-04-16 14:27] LABS: Hematocrit 36.8 % (37.0-47.0); Hemoglobin 11.7 g/dl (12.0-16.0); Mean Corpuscular HGB Conc 31.8 g/dl (31.0-35.0); Mean Corpuscular Hemoglobin 26.3 pg (27.0-33.0); Mean Corpuscular Volume 82.7 fL (80.0-98.0); Mean Platelet Volume 10.5 fL (9.4-12.3); Platelet Count 253 X10*3/uL (160-400); Red Blood Count 4.45 X10*6/uL (4.20-5.50); Red Cell Distribution Width 13.2 % (11.0-16.0); White Blood Count 5.5 X10*3/uL (4.8-10.8)
[2023-04-16 14:53] LABS: Iron 27 mcg/dL (30-160); Percent Iron Saturation 7 % (15-50); Total Iron Binding Capacity 377 mcg/dL (228-428); Unsaturated Iron Binding 350 ug/dL
[2023-04-16 15:08] LABS: TSH reflex Free T4 0.51 uIU/mL (0.32-4.0); Vitamin D 25-OH Total 41.7 ng/mL (>30)
== END 2023-04-16 11:19 | disposition home or self-care (01) ==
LOC: HO.WFDLDS 11:18
PROVIDERS: Visit Provider Nurse Practitioner Family
DX: N92.0 Excessive and frequent menstruation with regular cycle (principal); D64.9 Anemia, unspecified; R53.83 Other fatigue
CPT/HCPCS: 36415; 82306; 83540; 84443; 85027

== ENCOUNTER 2023-04-29 15:37 | Outpatient (AMB) | payer OTHER, SELFPAY ==
--- NOTE | 2023-04-29 15:44 | A.OFFPC_ITS ---
Vital Signs 04/29/23 15:45 Height 5 ft 6 in Weight 139 lb 2 oz BMI 22.5 BP 104/62 Blood Pressure Location Lt brachial Position Sitting Respiration 13 Pulse 95 Pulse Source Pulse Oximeter Temp 98.6 F Temp Source Temporal Artery Scan Pulse Oximetry (%) 99 Oxygen Delivery Method Room Air Intake Visit Reasons: Return to work clearance Intake Note: Patient states that she still feels very fatigued and week at times. Surgical Technician Required: No Accompanied by: Friend Allergies apple Allergy (Severe, Verified 04/29/23 15:49) hives fluconazole Allergy (Severe, Verified 04/29/23 15:49) hives Tobacco use date assessed: 04/16/23 Dental Screening Dental Screen Date: 04/29/23 Did you have a dental visit in the last 12 months?: Yes Did you have a dental problem in the last 6 months where you did not have access to dental care?: No Was dental information given to patient?: Patient has dentist HPI HPI Comments History of Present Illness Details 27-year-old female presents for clearanc e to return to work. She was diagnosed with pulmonary embolism on 03/31/2023. She is currently on Eliquis. She followed-up with her PCP. She requested time off work to heal. She was given time of work from 03/31/2023 to 04/30/2023. She reports continued fatigue. She states that she has been taking ferrous sulfate as prescribed. She denies chest pain or shortness of breath. [facility] Medical History Pulmonary embolism Tiredness Stiffness of right knee Immunization series complete Anal fissure Bloody stools Hemorrhoids Surgical History History of excision of pilonidal cyst History of wisdom tooth extraction History of removal of cyst H/O heart surgery Family History Father Asthma Allergies Mother Anemia Maternal Grandmother Hypertension Multiple myeloma Paternal Grandfather Hypertension Prostate cancer Paternal Grandmother Chronic mental illness Other Mental health disorder Social History Housing: House Alcohol intake: current Alcohol intake frequency: holidays/special occasions only Alcohol type: beer Patient Tobacco Use Status: Never used Tobacco e-Cigarette/Vaping Use: Never Used Second Hand Smoke Exposure: No service: No Current occupational status: employed 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 Anders Lynn, Tahmina Crook, Juanjose Osborne and colleagues, with an educational negin from [employer]. Review of Systems Const Details: Const Denies chills, Reports fatigue, Denies fever(s), Denies headache(s) and Denies weakness ENT Denies dizziness and Denies headache(s) Card Denies chest pain, Denies lightheadedness, Denies dyspnea and Denies other (Palpitations) Resp Denies cough, Denies dyspnea, Denies wheezing and Denies other ( shortness of breath) GI Denies abdominal pain, Denies melena, Denies hematochezia, Denies change in bowel habits, Denies dyspepsia and Denies nausea Denies hematuria and Denies dysuria Musc Denies abnormal gait, Denies myalgias, Denies arthralgias, Denies numbness and Denies tingling Skin/Breast Denies rash, Denies unusual bruising and Denies wounds Neuro Denies abnormal gait, Denies dizziness, Denies headache(s), Denies memory loss, Denies numbness, Denies Sensory deficit (Neuro), Denies tingling and Denies weakness Psych Denies anxiety, Denies depression, Denies memory loss Endo Denies cold intolerance, Reports fatigue, Denies heat intolerance, Denies polydipsia and Denies polyuria Aller/Immun Denies wheezing Physical exam (Primary Care) Vital Signs: Last Vital Signs Temp 98.6 F 04/29/23 15:45 Pulse 95 04/29/23 15:45 Resp 13 04/29/23 15:45 BP 104/62 04/29/23 15:45 Pulse Ox 99 04/29/23 15:45 Oxygen Delivery Method Room Air 04/29/23 15:45 BMI result Body Mass Index 22.5 Tobacco/Smoking Status: Tobacco use Status Tobacco use date assessed 04/16/23 04/29/23 15:51 Patient Tobacco Use Status Never used Tobacco 04/29/23 15:51 e-Cigarette/Vaping Use Never Used 04/29/23 15:51 Thrive Assessment: Date of Thrive Assessment Date Thrive assessed 08/07/21 04/29/23 15:51 Const Other: General: no acute distress and well developed Nutritional Appearance: well nourished Orientation/consciousness: patient oriented x3 HENMT Head: Yes normocephalic and Yes atraumatic Eyes General: appearance normal, both eyes and all related structures Pupils: Equal, round and reactive pupils present EOM: EOMs intact bilaterally Resp Effort & Inspection: normal respiratory effort Auscultation: clear to auscultation bilaterally Cardio Rate: regular rate Rhythm: regular rhythm Heart sounds: S1 normal heart sound present, S2 normal heart sound present, no gallops, no murmurs and no rubs GI Palpation (GI): No Abdominal aortic bruit present, Soft to palpation, nontender, No hepatosplenomegaly present and No Rebound tenderness present Auscultation: normal bowel sounds General: Yes no CVA tenderness Back/Spine/Pelvis Back: no CVA tenderness Cervical Spine: cervical ROM normal and No Cervical spine tenderness Thoracic/Lumbar Spine: thoraco-lumbar ROM normal, No pain with thoraco-lumbar ROM, No thoracic spinal tenderness and No lumbar spinal tenderness Extrem General: Yes normal to inspection, No edema and No calf tenderness Skin General: warm and dry. Normal skin color. Normal skin turgor Lesions: no lesions Rashes: no rashes Trauma: no lacerations or abrasions Wounds: no wounds Nails: normal Neuro General: patient oriented x3, gait normal and no focal neuro deficit Cranial nerves: Yes Equal, round and reactive pupils present Cognition (Neuro): normal cognition Gait exam (Neuro): Normal gait present Sensory Exam: No Sensory deficit (Neuro) Psych Appearance: grossly normal Affect: normal affect Attitude: cooperative Thought process: Normal thought process present Assessment and Plan Assessment & Plan (1) Iron deficiency anemia: Code(s): D50.9 - Iron deficiency anemia, unspecified Plan: Recent H&H and iron levels were slightly low She is on ferrous sulfate. Continue to take as prescribed Follow-up with PCP as planned Verbalized understanding and agreed with treatment plan. (2) Fatigue: Code(s): R53.83 - Other fatigue Plan: She reports continued fatigue Likely due to iron deficiency anemia Recent H&H and iron levels were slightly low. Vitamin-D and TSH levels were normal Continue to take ferrous sulfate as prescribed Follow-up with PCP as planned Verbalized understanding and agreed with treatment plan. Patient is medically stable at this time. She is cleared to return to work on 05/03/2023. Coding Level of Care Code Est Pt Level 3 (30658) Diagnoses Iron deficiency anemia D50.9 Fatigue R53.83
[2023-04-29 15:45] VITALS: BP 104/62; PULSE 95; RESP 13; TEMP 37; O2SAT 99; BMI 22.5
== END 2023-04-29 16:13 | disposition home or self-care (01) ==
PROVIDERS: PCP Nurse Practitioner Family; Visit Provider Nurse Practitioner Family
DX: D50.9 Iron deficiency anemia, unspecified (principal); R53.83 Other fatigue
CPT/HCPCS: 99213

== ENCOUNTER → 2023-05-11 09:00 | Outpatient (BNV) | payer OTHER, SELFPAY | PROVIDERS: PCP Nurse Practitioner Family; Visit Provider Internal Medicine Medical Oncology | DX: Z86.711 Personal history of pulmonary embolism (principal); D50.9 Iron deficiency anemia, unspecified | CPT/HCPCS: 99204; 99213 ==

== ENCOUNTER 2023-05-11 12:42 | Outpatient (AMB) | payer OTHER, SELFPAY ==
--- NOTE | 2023-05-11 12:45 | A.OFFPC_ITS ---
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 Brown. Patient is here to follow-up after a visit the emergency department from [facility] 03/31/23. Power Washer Required: No Accompanied by: Self / Same As Patient Allergies apple Allergy (Severe, Verified 05/11/23 13:12) hives fluconazole Allergy (Severe, Verified 05/11/23 13:12) hives Medication List - Last Reconciled 05/11/23 by LUIS uHi apixaban (Eliquis) 5 mg PO BID 30 days ferrous sulfate 325 mg PO DAILY Tobacco use date assessed: 04/16/23 Dental Screening Dental Screen Date: 05/11/23 Did you have a dental visit in the last 12 months?: Yes Did you have a dental problem in the last 6 months where you did not have access to dental care?: No Was dental information given to patient?: Patient has dentist HPI HPI Comments History of Present Illness Details 27-year-old female presents today as a t ransfer of care from [facility] significant for depression, anxiety, iron deficiency anemia and pulmonary embolism. Patient currently on Eliquis for anticoagulation and following Dr. Deluna hematology. Patient reports has upcoming repeat CT scan in June to follow-up on PE. Patient reports since on eliquis was having heavy menstrual periods with clots that her IUD out. Patient currently followed by OBGYN and she was placed on Provera for her heavy menstrual bleeding. Patient reports she is currently on her menses this month but it but is a normal flow. Patient reports fatigue, likely related to her iron deficiency anemia currently on ferrous sulfate 325 mg daily H&H within normal limits, iron saturation remains low at 10%. [facility] Medical History Pulmonary embolism Tiredness Stiffness of right knee Immunization series complete Anal fissure Bloody stools Hemorrhoids Surgical History History of excision of pilonidal cyst History of wisdom tooth extraction History of removal of cyst H/O heart surgery Family History (Updated 05/11/23 @ 13:18 by LUIS Hui) Father Asthma Allergies Mother Anemia Hypertension Maternal Grandmother Hypertension Multiple myeloma Paternal Grandfather Hypertension Prostate cancer Paternal Grandmother Chronic mental illness Other Mental health disorder Social History (Updated 05/11/23 @ 13:19 by LUIS Hui) Housing: House Alcohol intake: current Alcohol intake frequency: holidays/special occasions only Alcohol type: beer Patient Tobacco Use Status: Never used Tobacco e-Cigarette/Vaping Use: Never Used Second Hand Smoke Exposure: No service: No Current occupational status: employed 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 1. Little interest or pleasure in doing things: several days 2. Feeling down, depressed, or hopeless: more than half the days 3. Trouble falling or staying asleep, or sleeping too much: not at all 4. Feeling tired or having little energy: nearly every day 5. Poor appetite or overeating: several days 6. Feeling bad about yourself - or that you are a failure or have let yourself or your family down: not at all 7. Trouble concentrating on things, such as reading the newspaper or watching television: several days 8. Moving or speaking so slowly that other people could have noticed. Or the opposite - being so fidgety or restless that you have been moving around a lot more than usual: not at all 9. Thoughts that you would be better off or of hurting yourself in some way: not at all Total score: 8 Depression Screening Interpretation: Positive Depression Screening Done: Yes [id number] - PHQ-9 Billing: Yes Source: Developed by Drs. Anders Lynn, Tahmina Crook, Juanjose Osborne and colleagues, with an educational negin from [employer]. Thrive Questionnaire Date Thrive assessed: 05/11/23 I am a: Patient What is your living situation today?: I have a steady place to live Within the past 12 months, did the food you bought not last and you didn't have the money to get more?: Never true Within the past 12 months, did you worry whether your food would run out before you got money to buy more?: Never true Do you have trouble paying for medicines?: No Do you have trouble getting transportation to medical appointments?: No Do you have trouble paying your heating and electricity bill?: No Do you have trouble taking care of your child, family member or friend?: No Do you have trouble with day-to-day activities such as bathing, preparing meals, shopping, managing finances, etc.?: No Are you currently unemployed and looking for a job?: No Are you interested in more education?: No Please select the resources that you would like help with: None Currently or been in a relationship where the following occur: no concerns reported AUDIT C Alcohol Use Questionnaire (AUDIT-C) 1. How often do you have a drink containing alcohol?: Monthly or less 2. How many drinks containing alcohol do you have on a typical day when you are drinking?: 1 or 2 3. How often do you have six or more drinks on one occasion?: Never Total Score: 1 ALEA-7 AMB Questionnaire ALEA-7 Date ALEA - 7 assessed: 09/18/21 Source: Developed by Drs. Anders Lynn, Tahmina Crook, Juanjose Osborne and colleagues, with an educational negin from [employer]. Review of Systems Const Reports fatigue Eyes Denies no additional complaints ENT Reports Normal hearing present Card Denies chest pain, Denies syncope, Denies rapid heart rate and Denies dyspnea Resp Denies cough and Denies dyspnea GI Denies change in stool character, Denies constipation, Denies diarrhea, Denies nausea and Denies vomiting Denies urinary frequency, Denies dysuria and Denies urinary urgency Neuro Reports Normal hearing present, Denies confusion and Denies syncope Psych Denies confusion Endo Reports fatigue Physical exam (Primary Care) Vital Signs: Last Vital Signs Pulse 80 05/11/23 12:46 Resp 17 05/11/23 12:46 BP 102/66 05/11/23 12:46 BMI result Body Mass Index 22.3 Tobacco/Smoking Status: Tobacco use Status Tobacco use date assessed 04/16/23 05/11/23 12:47 Patient Tobacco Use Status Never used Tobacco 05/11/23 13:19 e-Cigarette/Vaping Use Never Used 05/11/23 13:19 PHQ-9: PHQ-9 Score PHQ-9: Total score 8 05/11/23 13:15 Depression Screening Interpretation: Positive Thrive Assessment: Date of Thrive Assessment Date Thrive assessed 05/11/23 05/11/23 12:54 Currently or been in a relationship where the following occur: no concerns reported Const General: No confusion Orientation/consciousness: No confusion HENMT Head: Yes normocephalic and Yes atraumatic Eyes Conjunctivae: conjunctivae normal Chest Chest palpation & inspection: normal inspection of the chest Resp Effort & Inspection: normal respiratory effort Auscultation: clear to auscultation bilaterally, no crackles, no rhonchi and no wheezes Cardio Rate: regular rate Rhythm: regular rhythm Heart sounds: S1 normal heart sound present and S2 normal heart sound present GI Inspection: Yes normal to inspection Neuro General: No confusion Cranial nerves: Yes Normal hearing present Extrem General: No edema Assessment and Plan Assessment & Plan (1) Iron deficiency anemia: Code(s): D50.9 - Iron deficiency anemia, unspecified Plan: Continue on ferrous sulfate 325 mg daily. Continue to follow with Hematology. 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 (3) Fatigue: Code(s): R53.83 - Other fatigue Plan: Likely related to iron deficiency anemia continue on oral iron. Plan Follow-up in 3 months for complete physical exam Medications: New ferrous sulfate 325 mg PO DAILY 90 tabs 0RF Coding Level of Care Code Est Pt Level 3 (63667) Diagnoses Iron deficiency anemia D50.9 Pulmonary embolism on left I26.99 Fatigue R53.83
[2023-05-11 12:46] VITALS: BP 102/66; PULSE 80; RESP 17; BMI 22.3
== END 2023-05-11 13:30 | disposition home or self-care (01) ==
PROVIDERS: PCP Hospitalist; Visit Provider Nurse Practitioner Family
DX: D50.9 Iron deficiency anemia, unspecified (principal); I26.99 Other pulmonary embolism without acute cor pulmonale; R53.83 Other fatigue; F41.8 Other specified anxiety disorders
CPT/HCPCS: 99213

== ENCOUNTER 2023-05-17 09:32 | Outpatient (AMB) | payer OTHER, SELFPAY ==
[2023-05-17 11:38] VITALS: BP 104/70; PULSE 90; TEMP 36.8; O2SAT 98; BMI 22.8
--- NOTE | 2023-05-17 11:41 | AM.OFFWIN_ITS ---
Intake Vital Signs 05/17/23 11:38 Height 5 ft 6 in Weight 141 lb 4 oz BMI 22.8 BP 104/70 Blood Pressure Location Rt brachial Position Sitting Pulse 90 Pulse Source Pulse Oximeter Temp 98.2 F Temp Source Oral Pulse Oximetry (%) 98 Oxygen Delivery Method Room Air Intake Visit Reasons: EP,sore throat,congestion([phone]) [employer] Intake Note: Pt presents to the office today for c/o sore throat, congestion, and cough which started wednesday05/14/23. Patient Tobacco Use Status: Never used Tobacco Allergies apple Allergy (Severe, Verified 05/17/23 12:06) hives fluconazole Allergy (Severe, Verified 05/17/23 12:06) hives Medication List - Last Reconciled 05/17/23 by Viral Helms MD apixaban (Eliquis) 5 mg PO BID 30 days ferrous sulfate 325 mg PO DAILY HPI EP,sore throat,congestion([phone]) [employer] HPI Details Patient presents for a sick visit. Reporting symptoms of sinus congestion, sore throat and difficulty swallowing. Low-grade fever. No family member is sick. No recent travel. Patient reports symptoms of malaise and fatigue. [facility] Medical History Pulmonary embolism Tiredness Stiffness of right knee Immunization series complete Anal fissure Bloody stools Hemorrhoids Surgical History History of excision of pilonidal cyst History of wisdom tooth extraction History of removal of cyst H/O heart surgery Family History Father Asthma Allergies Mother Anemia Hypertension Maternal Grandmother Hypertension Multiple myeloma Paternal Grandfather Hypertension Prostate cancer Paternal Grandmother Chronic mental illness Other Mental health disorder Social History Housing: House Alcohol intake: current Alcohol intake frequency: holidays/special occasions only Alcohol type: beer Patient Tobacco Use Status: Never used Tobacco e-Cigarette/Vaping Use: Never Used Second Hand Smoke Exposure: No service: No Current occupational status: employed 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 Cognitive needs: No Hearing needs: No Vision needs: No Physical Exam Vital Signs: Last Vital Signs Temp 98.2 F 05/17/23 11:38 Pulse 90 05/17/23 11:38 BP 104/70 05/17/23 11:38 Pulse Ox 98 05/17/23 11:38 Oxygen Delivery Method Room Air 05/17/23 11:38 BMI result Body Mass Index 22.8 Const General: cooperative and healthy appearing Nutritional Appearance: well nourished Orientation/consciousness: patient oriented x3 Limitations: no limitations HEENT Head: Yes normal to inspection Eyes General: appearance normal, both eyes and all related structures Neck Neck: Yes normal visual inspection Chest Chest palpation & inspection: normal palpation of entire chest wall Resp Effort & Inspection: normal respiratory effort Neuro General: patient oriented x3 Results AMB Rapid Strep AMB Rapid Strep Negative Last Edit by Colette Bonilla MA on 05/17/23 11:51 Results Reviewed Results Reviewed: Laboratory Last Values Strep Scn Rapid Clinic Negative 05/17/23 11:44 Assessment & Plan Assessment & Plan (1) Upper respiratory tract infection: Code(s): J06.9 - Acute upper respiratory infection, unspecified Plan: Increase fluid intake. Tylenol for aches and pains. If symptoms worsen, follow-up here for a recheck. No antibiotics needed. Orders: Orders AMB Rapid Strep Screen Today Z13.9 - Encounter for screening, unspecified SARS-CoV2/FLU/RSV Today R43.9 - Unspecified disturbances of smell and taste Coding Level of Care Code Est Pt Level 3 (85535) Diagnoses Upper respiratory tract infection J06.9
== END 2023-05-17 12:44 | disposition home or self-care (01) ==
PROVIDERS: PCP Nurse Practitioner Family; Visit Provider Internal Medicine
DX: J06.9 Acute upper respiratory infection, unspecified (principal); J02.9 Acute pharyngitis, unspecified
CPT/HCPCS: 87880; 99213

== ENCOUNTER 2023-05-17 14:24 | Outpatient (REF) | payer OTHER, SELFPAY ==
[2023-05-17 17:47] LABS: Influenza A PCR NEGATIVE (Negative); Influenza B PCR NEGATIVE (Negative); Resp Syncy Virus RNA Qual PCR NEGATIVE (Negative); SARS COV2 PCR INHOUSE NEGATIVE (Negative)
== END 2023-05-17 14:25 | disposition home or self-care (01) ==
LOC: HO.LAB 14:24
PROVIDERS: Visit Provider Internal Medicine
DX: R43.9 Unspecified disturbances of smell and taste (principal); Z11.52 Encounter for screening for COVID-19
CPT/HCPCS: 0241U

== ENCOUNTER 2023-06-28 09:31 | Outpatient (AMB) | payer OTHER, SELFPAY ==
[2023-06-28 10:34] VITALS: BP 130/72; PULSE 96; TEMP 36.8; O2SAT 97; BMI 22.9
--- NOTE | 2023-06-28 10:34 | AM.OFFWIN_ITS ---
Intake Vital Signs 06/28/23 10:34 Height 5 ft 6 in Weight 64.41 kg BMI 22.9 BP 130/72 Blood Pressure Location Lt brachial Position Sitting Pulse 96 Pulse Source Pulse Oximeter Temp 98.2 F Temp Source Temporal Artery Scan Pulse Oximetry (%) 97 Oxygen Delivery Method Room Air Intake Visit Reasons: Ep, sore throat, cough ([phone]) Intake Note: pt is here today for sore throat, cough started wednesday Patient Tobacco Use Status: Never used Tobacco Allergies apple Allergy (Severe, Verified 06/28/23 10:44) hives fluconazole Allergy (Severe, Verified 06/28/23 10:44) hives Do you need a note to return to daycare/school/sports/work: Yes HPI HPI Comments History of Present Illness Details 27-year-old female hx of PE on eliquis w ho presents with fatigue, malaise, myalgias, cough, subjective fevers and chills, sore throat that started yesterday..? 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 Denies chest pain, shortness of breath, nausea, vomiting, abdominal pain, headache vision change, dizziness, weakness, changes in bowel or urinary habits Physical exam benign History and physical exam concerning for viral illness versus bronchitis versus flu versus COVID versus RSV versus pharyngitis.? Unlikely pneumonia, ACS, dissection, pulmonary embolism, acute respiratory distress, retropharyngeal peritonsillar abscess, epiglottitis, threat to airway Plan at this time viral testing will discharge patient home with supportive measures, ibuprofen, Tylenol, salt water gargle.? Educated patient on diagnosis and treatment plan, answered all question, patient verbalizes understanding.? At this time patient will be discharged home, advised to return with new or worsening symptoms.? Educated on worrisome signs and symptoms and when to return.? At this time I feel comfortable discharge home. [facility] Medical History Pulmonary embolism Tiredness Stiffness of right knee Immunization series complete Anal fissure Bloody stools Hemorrhoids Surgical History History of excision of pilonidal cyst History of wisdom tooth extraction History of removal of cyst H/O heart surgery Family History Father Asthma Allergies Mother Anemia Hypertension Maternal Grandmother Hypertension Multiple myeloma Paternal Grandfather Hypertension Prostate cancer Paternal Grandmother Chronic mental illness Other Mental health disorder Social History Housing: House Alcohol intake: current Alcohol intake frequency: holidays/special occasions only Alcohol type: beer Patient Tobacco Use Status: Never used Tobacco e-Cigarette/Vaping Use: Never Used Second Hand Smoke Exposure: No service: No Current occupational status: employed 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 Cognitive needs: No Hearing needs: No Vision needs: No Review of Systems Const Details: Constitutional : No Weight loss, + Fever, + Chills, + Fatigue, + Malaise ENT/Mouth : + sore throat, No Rhinorrhea Eyes: No Eye Pain, No Swelling, No Redness Cardiovascular : No Chest Pain, No SOB, No Dyspnea on Exertion, No Orthopnea, No Edema, No Palpitations Respiratory : + Cough, No Sputum, No Wheezing Gastrointestinal : No Nausea, No Vomiting, No Diarrhea, No Constipation, No abdominal Pain, No Hematochezia, No Melena Genitourinary : No Dysuria, No Urinary Frequency, No Hematuria, Musculoskeletal : No joint pain, + Myalgias, No Joint Swelling Skin : No Skin Lesions, No rash Neuro : No Weakness, No Numbness, No Dizziness, No Headache Psych : No Anxiety/Panic, No Depression Heme/Lymph: No Bruising, No Bleeding,No Lymphadenopathy Endocrine : No Polyuria, No Polydipsia All other systems reviewed and are negative All systems reviewed & are unremarkable except as noted in HPI and below Physical Exam Vital Signs: Last Vital Signs Temp 98.2 F 06/28/23 10:34 Pulse 96 06/28/23 10:34 BP 130/72 06/28/23 10:34 Pulse Ox 97 06/28/23 10:34 Oxygen Delivery Method Room Air 06/28/23 10:34 BMI result Body Mass Index 22.9 vss Appearance: Alert.? Oriented X3.? No acute distress.? Head: Normocephalic, atraumatic, no step-offs or deformities Eyes: Pupils equal, round and reactive to light.? ENT: Pharynx normal.? Neck: Normal inspection.? Neck supple.? CVS: Normal heart rate and rhythm.? Pulses normal.? Respiratory: No respiratory distress.? Breath sounds normal.? Skin: Skin warm and dry.? Normal skin color.? Normal skin turgor.? Extremities: No lower extremity edema.? No calf ttp. 5/5 strength to bilateral upper and lower extremities Neuro: Oriented X 3.? No motor deficit.? No sensory deficit. CN 2-12 intact Assessment & Plan Assessment & Plan (1) Viral illness: Code(s): B34.9 - Viral infection, unspecified Plan Take your medications as prescribed. If you were prescribed antibiotics today, it is important that you take your medication to their entirety, do not skip any doses, do not finish them early. Follow-up with your primary care provider this week. Return to the emergency department with new or worsening symptoms. Such as fevers, chills, chest pain, shortness of breath, nausea, vomiting, dizziness, headache, vision changes, lethargy In case of emergency call 911 Orders: Orders AMB Rapid Strep Screen Today Z13.9 - Encounter for screening, unspecified LUIS Jeffries SARS-CoV2/FLU/RSV Today B34.9 - Viral infection, unspecified SATHYA Huffman Coding Level of Care Code Est Pt Level 3 (62739) Diagnoses Viral illness B34.9
== END 2023-06-28 11:27 | disposition home or self-care (01) ==
PROVIDERS: PCP Nurse Practitioner Family; Visit Provider Physician Assistant
DX: B34.9 Viral infection, unspecified (principal)
CPT/HCPCS: 99213

== ENCOUNTER 2023-06-28 13:43 | Outpatient (REF) | payer OTHER, SELFPAY ==
[2023-06-28 14:49] LABS: Influenza A PCR NEGATIVE (Negative); Influenza B PCR NEGATIVE (Negative); Resp Syncy Virus RNA Qual PCR NEGATIVE (Negative); SARS COV2 PCR INHOUSE NEGATIVE (Negative)
== END 2023-06-28 13:44 | disposition home or self-care (01) ==
LOC: HO.HMGCLNP 13:43
PROVIDERS: Visit Provider Physician Assistant
DX: B34.9 Viral infection, unspecified (principal); Z11.52 Encounter for screening for COVID-19
CPT/HCPCS: 0241U

== ENCOUNTER 2023-06-29 09:45 | Outpatient (REF) | payer OTHER, SELFPAY ==
--- NOTE | ~2023-06-29 | CT_ITS ---
EXAMINATION: CT ANGIOGRAM OF THE CHEST WITH AND WITHOUT CONTRAST (CT PULMONARY ANGIOGRAM FOR PE) CLINICAL INFORMATION: Reason for Exam I26.99 - Other pulmonary embolism without acute cor pulmonale COMPARISON: None available. TECHNIQUE: Prior to contrast administration, noncontrast localization images were obtained. Subsequently, multidetector volumetric imaging was performed from the thoracic inlet to below the diaphragms following the administration of 100 mL Omnipaque 350 intravenous contrast. No contrast reaction reported Sagittal, coronal, and MIP oblique sagittal reformatted images were obtained on the CT workstation, uploaded to PACS, and reviewed. This CT examination was performed using dose optimization techniques as appropriate, variously including the following: *Automated exposure control *Adjustment of mA and/or kV according to patient size (this includes techniques or standardized protocols for targeted exams where dose is matched to indication/reason for exam; i.e. extremities or head) *Use of iterative reconstruction technique Total exam dose-length product 100 mGy-cm FINDINGS: QUALITY OF STUDY/CONTRAST BOLUS: Satisfactory. PULMONARY ARTERIES: No pulmonary emboli. THORACIC AORTA: No aneurysm. LUNG: No focal consolidation, nodules or masses. PLEURA: No pleural effusion or pneumothorax. MEDIASTINUM: Normal heart size. No pericardial effusion. No hilar or mediastinal lymphadenopathy. No evidence of septal bowing or right heart strain. CORONARY ARTERY CALCIFICATION: None visualized on this study. CHEST WALL/AXILLA: No axillary or internal mammary lymphadenopathy. OSSEOUS STRUCTURES: No acute or suspicious osseous abnormality. There is mild dextro scoliosis dorsolumbar spine. UPPER ABDOMEN: Unremarkable. No reflux of contrast into the hepatic veins to suggest elevated right heart pressures. CT/CT angio chest PE protocol IMPRESSION: Unremarkable CT chest with contrast. No evidence of PE. VTE: negative
[2023-06-29] MEDS: iohexoL 350 MG/ML 100 ML INFUS..BTL IV (10:26)
== END 2023-06-29 09:46 | disposition home or self-care (01) ==
LOC: HO.CT 09:45
PROVIDERS: PCP Nurse Practitioner Family; Visit Provider Nurse Practitioner Family
DX: I26.99 Other pulmonary embolism without acute cor pulmonale (principal)
CPT/HCPCS: 71275; Q9967

== ENCOUNTER 2023-09-10 08:47 | Outpatient (AMB) | payer OTHER, SELFPAY ==
[2023-09-10 08:50] VITALS: BP 116/70; PULSE 98; TEMP 36.6; O2SAT 99; BMI 24.2
--- NOTE | 2023-09-10 08:50 | MHC.OFFWIV ---
Intake Vital Signs 09/10/23 08:50 Height 5 ft 6 in Weight 150 lb BMI 24.2 BP 116/70 Blood Pressure Location Lt brachial Position Sitting Pulse 98 Pulse Source Pulse Oximeter Temp 97.9 F Temp Source Temporal Artery Scan Pulse Oximetry (%) 99 Oxygen Delivery Method Room Air Intake Visit Reasons: EP body aches runny nose sinus pressure Intake Note: pt is here today for body aches runny nose sinus pressure started wednesday Patient Tobacco Use Status: Never used Tobacco Allergies apple Allergy (Severe, Verified 09/10/23 08:51) hives fluconazole Allergy (Severe, Verified 09/10/23 08:51) hives Do you need a note to return to daycare/school/sports/work: Yes HPI EP body aches runny nose sinus pressure HPI Details Patient is a 27-year-old female comes to the walk-in clinic complaining of a few days of body aches, nasal congestion, and starting to develop sinus pressure. No souce contact with sick persons reported. She does not report fever or chills, nausea vomiting or diarrhea, headache, severe sinus pressure radiating to the jaw, dizziness or weakness, or other significant associated symptoms. [facility] Medical History Pulmonary embolism Tiredness Stiffness of right knee Immunization series complete Anal fissure Bloody stools Hemorrhoids Surgical History History of excision of pilonidal cyst History of wisdom tooth extraction History of removal of cyst H/O heart surgery Family History Father Asthma Allergies Mother Anemia Hypertension Maternal Grandmother Hypertension Multiple myeloma Paternal Grandfather Hypertension Prostate cancer Paternal Grandmother Chronic mental illness Other Mental health disorder Social History Housing: House Alcohol intake: current Alcohol intake frequency: holidays/special occasions only Alcohol type: beer Patient Tobacco Use Status: Never used Tobacco e-Cigarette/Vaping Use: Never Used Second Hand Smoke Exposure: No service: No Current occupational status: employed 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 Cognitive needs: No Hearing needs: No Vision needs: No Review of Systems Const All systems reviewed & are unremarkable except as noted in HPI and below Physical Exam Vital Signs: Last Vital Signs Temp 97.9 F 09/10/23 08:50 Pulse 98 09/10/23 08:50 BP 116/70 09/10/23 08:50 Pulse Ox 99 09/10/23 08:50 Oxygen Delivery Method Room Air 09/10/23 08:50 BMI result Body Mass Index 24.2 Const General: cooperative, healthy appearing, comfortable, no acute distress, alert, awake, Physically active and well groomed; No anxious, diaphoretic, intoxicated appearing, poor hygiene or tired appearing Nutritional Appearance: average body habitus Limitations: no limitations HEENT Head: Yes normal to inspection, Yes normocephalic and Yes atraumatic Ears: hearing grossly normal bilaterally, external ears normal, TM's normal bilaterally and EAC's normal General nose exam: Normal external nose present, Normal septum present, Abnormal mucous membranes and turbinates present and Nasal discharge present Face and sinus: Yes face symmetric, No edema, No fluctuance, No maxillary instability and Yes sinus tenderness Mouth: Normal oral and palatal mucosa present, lip normal and tongue normal Throat: Yes uvula midline, Yes abnormal tonsil (mildly erythematous bilaterally), No peritonsillar mass, Yes postnasal drainage, No uvular edema and No cobblestoning Eyes General: appearance normal, both eyes and all related structures Neck Neck: Yes normal visual inspection, Yes no lymphadenopathy, Yes trachea midline, Yes supple and No anterior neck swelling Resp Effort & Inspection: normal respiratory effort, able to speak in complete sentences, no audible wheezes, no cough, no grunting, not labored, no nasal flaring, no retractions and symmetric chest movement Auscultation: clear to auscultation bilaterally, no crackles, no rales, no rhonchi, no wheezes, lung sounds not diminished and No rub present Cardio Palpation: normal PMI Rate: regular rate Rhythm: regular rhythm Heart sounds: S1 normal heart sound present and S2 normal heart sound present Skin Other: Good color, warm and dry Psych Appearance: grossly normal Mental Status: mental status grossly normal Speech and movement: Normal speech and movement present Affect: normal affect Attitude: cooperative Thought process: Normal thought process present Insight: Good insight present (Psych) Judgement: Good judgement present (Psych) Assessment & Plan Assessment & Plan (1) Upper respiratory tract infection: Code(s): J06.9 - Acute upper respiratory infection, unspecified Qualifiers: URI type: unspecified viral URI Qualified Code(s): J06.9 - Acute upper respiratory infection, unspecified Plan Likely acute viral syndrome, with rapid strep test negative and home COVID test negative. We discussed supportive measures, and she is pending results for flu COVID and RSV. Note given to excuse for work today. She states that she does not have to work over the weekend, and by Wednesday she would be past the 5 day pamella even if she is positive for COVID. She will follow up if symptoms persist or worsen, or go to the emergency department with worrisome symptoms. Orders: Orders SARS-CoV2/FLU/RSV 09/10/23 R05.9 - Cough, unspecified Coding Level of Care Code Est Pt Level 4 (65285) Diagnoses Viral upper respiratory tract infection J06.9 URI type: unspecified viral URI
== END 2023-09-10 09:23 | disposition home or self-care (01) ==
PROVIDERS: PCP Nurse Practitioner Family; Visit Provider Physician Assistant Medical
DX: J06.9 Acute upper respiratory infection, unspecified (principal)
CPT/HCPCS: 99214

== ENCOUNTER 2023-09-10 09:21 | Outpatient (REF) | payer OTHER, SELFPAY ==
[2023-09-10 11:51] LABS: Influenza A PCR NEGATIVE (Negative); Influenza B PCR NEGATIVE (Negative); Resp Syncy Virus RNA Qual PCR NEGATIVE (Negative); SARS COV2 PCR INHOUSE NEGATIVE (Negative)
== END 2023-09-10 09:22 | disposition home or self-care (01) ==
LOC: HO.LAB 09:21
PROVIDERS: Visit Provider Physician Assistant Medical
DX: Z11.52 Encounter for screening for COVID-19 (principal); Z20.822 Contact with and (suspected) exposure to COVID-19; R05.9 Cough, unspecified
CPT/HCPCS: 0241U

== ENCOUNTER 2023-10-12 10:48 | Outpatient (AMB) | payer OTHER, SELFPAY ==
[2023-10-12 10:50] VITALS: BP 108/64; PULSE 91; RESP 13; TEMP 36.4; O2SAT 99; BMI 24.8
--- NOTE | 2023-10-12 10:50 | MHC.PC.OV ---
Vital Signs 10/12/23 10:50 Height 5 ft 6 in Weight 153 lb 8 oz BMI 24.8 BP 108/64 Blood Pressure Location Rt brachial Position Sitting Respiration 13 Pulse 91 Pulse Source Pulse Oximeter Temp 97.6 F Temp Source Temporal Artery Scan Pulse Oximetry (%) 99 Oxygen Delivery Method Room Air Intake Visit Reasons: PE Pipe Buffer Required: No Accompanied by: boyfriend Allergies apple Allergy (Severe, Verified 10/12/23 11:08) hives fluconazole Allergy (Severe, Verified 10/12/23 11:08) hives enoxaparin [From Lovenox] Adverse Reaction (Mild, Verified 10/12/23 11:08) Rash Medication List - Last Reconciled 10/12/23 by Darwin Shultz CNP ferrous sulfate 325 mg PO DAILY fondaparinux 2.5 mg (0.5 mL) subcut Q24H Tobacco use date assessed: 10/12/23 Dental Screening Dental Screen Date: 10/12/23 Did you have a dental visit in the last 12 months?: Yes Did you have a dental problem in the last 6 months where you did not have access to dental care?: No Was dental information given to patient?: Patient has dentist HPI HPI Comments History of Present Illness Details 27-year-old female, accompanied by her , presents for an extended physical exam She has history of iron-deficiency anemia, anxiety, depression, and pulmonary embolism She is currently on ferrous sulfate and fondaparinux which she admits to taking as prescribed without adverse reactions She notes that she is 14 weeks with no complication. Her is considered high risk due to h/o DVT. She is followed by biofuels plant operations engineer at [facility] She offers no complaints and denies acute symptoms at this time Nonsmoker. Nondrinker. No recreational drug use Her last pap smear test was in 2023: normal She is followed by [facility] Medical History (Updated 10/12/23 @ 11:23 by Darwin Shultz CNP) Pulmonary embolism Tiredness Stiffness of right knee Immunization series complete Anal fissure Bloody stools Hemorrhoids Surgical History History of excision of pilonidal cyst History of wisdom tooth extraction History of removal of cyst H/O heart surgery Family History Father Asthma Allergies Mother Anemia Hypertension Maternal Grandmother Hypertension Multiple myeloma Paternal Grandfather Hypertension Prostate cancer Paternal Grandmother Chronic mental illness Other Mental health disorder Social History Housing: House Alcohol intake: current Alcohol intake frequency: holidays/special occasions only Alcohol type: beer Patient Tobacco Use Status: Never used Tobacco e-Cigarette/Vaping Use: Never Used Second Hand Smoke Exposure: No service: No Current occupational status: employed 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 1. Little interest or pleasure in doing things: not at all 2. Feeling down, depressed, or hopeless: not at all 3. Trouble falling or staying asleep, or sleeping too much: not at all 4. Feeling tired or having little energy: several days 5. Poor appetite or overeating: not at all 6. Feeling bad about yourself - or that you are a failure or have let yourself or your family down: not at all 7. Trouble concentrating on things, such as reading the newspaper or watching television: not at all 8. Moving or speaking so slowly that other people could have noticed. Or the opposite - being so fidgety or restless that you have been moving around a lot more than usual: not at all 9. Thoughts that you would be better off or of hurting yourself in some way: not at all Total score: 1 Depression Screening Interpretation: Negative Depression Screening Done: Yes 77745 - PHQ-9 Billing: Yes Source: Developed by Drs. Anders Lynn, Tahmina Crook, Juanjose Osborne and colleagues, with an educational negin from [employer]. Thrive Questionnaire Date Thrive assessed: 10/12/23 I am a: Patient What is your living situation today?: I have a steady place to live Within the past 12 months, did the food you bought not last and you didn't have the money to get more?: Never true Within the past 12 months, did you worry whether your food would run out before you got money to buy more?: Never true Do you have trouble paying for medicines?: No Do you have trouble getting transportation to medical appointments?: No Do you have trouble paying your heating and electricity bill?: No Do you have trouble taking care of your child, family member or friend?: No Do you have trouble with day-to-day activities such as bathing, preparing meals, shopping, managing finances, etc.?: No Are you currently unemployed and looking for a job?: No Are you interested in more education?: No Please select the resources that you would like help with: None Currently or been in a relationship where the following occur: no concerns reported THRIVE Score: 0 AUDIT C Alcohol Use Questionnaire (AUDIT-C) 1. How often do you have a drink containing alcohol?: Never 3. How often do you have six or more drinks on one occasion?: Never Total Score: 0 ALEA-7 AMB Questionnaire ALEA-7 Date ALEA - 7 assessed: 10/12/23 Feeling nervous, anxious, or on edge: 0 = Not at all Not being able to stop or control worryin = Several days Worrying too much about different things: 1 = Several days Trouble relaxin = Not at all Being so restless that it is hard to sit still: 0 = Not at all Becoming easily annoyed or irritable: 0 = Not at all Feeling afraid as if something awful might happen: 0 = Not at all Total ALEA-7 score (0-4 normal; 5-9 mild; 10-14 moderate; 15-21 severe): 2 Source: Developed by Drs. Anders Lynn, Tahmina Crook, Juanjose Osborne and colleagues, with an educational negin from [employer]. ALEA-7 Assessment Billing ALEA-7 Assessment Tool: ALEA-7 Assessment 75487 Review of Systems Const Details: Denies chills, Denies fatigue, Denies fever(s), Denies headache(s) and Denies weakness HEENT Denies change in vision, Denies dizziness, Denies headache(s), Denies hearing loss, Denies nasal congestion, Denies sinus pain, Denies sinus pressure and Denies sore throat Card Denies chest pain, Denies lightheadedness, Denies dyspnea and Denies other (palpitations) Resp Denies cough, Denies dyspnea and Denies wheezing GI Denies abdominal pain, Denies melena, Denies hematochezia, Denies change in bowel habits, Denies dyspepsia and Denies nausea Denies hematuria and Denies dysuria Musc Denies abnormal gait, Denies myalgias, Denies arthralgias, Denies numbness and Denies tingling Skin/Breast Denies rash, Denies unusual bruising and Denies wounds Neuro Denies abnormal gait, Denies dizziness, Denies headache(s), Denies memory loss, Denies numbness, Denies Sensory deficit (Neuro), Denies tingling and Denies weakness Psych Denies anxiety, Denies depression and Denies memory loss Endo Denies cold intolerance, Denies fatigue, Denies heat intolerance, Denies polydipsia and Denies polyuria Armin/Lymph Denies easy bleeding and Denies easy bruising Aller/Immun Denies wheezing Physical exam (Primary Care) Vital Signs: Last Vital Signs Temp 97.6 F 10/12/23 10:50 Pulse 91 10/12/23 10:50 Resp 13 10/12/23 10:50 BP 108/64 10/12/23 10:50 Pulse Ox 99 10/12/23 10:50 Oxygen Delivery Method Room Air 10/12/23 10:50 BMI result Body Mass Index 24.8 Tobacco/Smoking Status: Tobacco use Status Tobacco use date assessed 10/12/23 10/12/23 11:02 Patient Tobacco Use Status Never used Tobacco 10/12/23 11:02 e-Cigarette/Vaping Use Never Used 10/12/23 11:02 PHQ-9: PHQ-9 Score PHQ-9: Total score 1 10/12/23 11:02 Depression Screening Interpretation: Negative Thrive Assessment: Date of Thrive Assessment Date Thrive assessed 10/12/23 10/12/23 11:02 Currently or been in a relationship where the following occur: no concerns reported Const Other: General: no acute distress, well developed, alert and awake Nutritional Appearance: well nourished Orientation/consciousness: patient oriented x3 HENMT Head: Yes normocephalic and Yes atraumatic Ears: hearing grossly normal bilaterally and TM's normal bilaterally General nose exam: Normal external nose present and Normal nares present Mouth: Normal oral and palatal mucosa present and moist mucous membranes Teeth and gingiva: dentition normal Throat: Yes oropharynx normal Eyes Pupils: Equal, round and reactive pupils present and Pupil accommodation reflex normal EOM: EOMs intact bilaterally Neck Neck: Yes normal visual inspection, Yes no lymphadenopathy and Yes trachea midline Thyroid: Thyroid normal Carotids: no bruits Lymphatic: no lymphadenopathy noted Chest Chest palpation & inspection: normal inspection of the chest Resp Effort & Inspection: normal respiratory effort Auscultation: clear to auscultation bilaterally Cardio Rate: regular rate Rhythm: regular rhythm Heart sounds: S1 normal heart sound present, S2 normal heart sound present, no gallops, no murmurs and no rubs Bruits: no abdominal aortic bruits and no carotid bruits GI Palpation (GI): No Abdominal aortic bruit present, Soft to palpation, nontender, No hepatosplenomegaly present and No Rebound tenderness present Auscultation: normal bowel sounds General: Yes no CVA tenderness Back/Spine/Pelvis Back: no CVA tenderness Cervical Spine: cervical ROM normal and No Cervical spine tenderness Thoracic/Lumbar Spine: thoraco-lumbar ROM normal, No pain with thoraco-lumbar ROM, No thoracic spinal tenderness and No lumbar spinal tenderness Dextroscoliosis Skin General: warm and dry. Normal skin color. Normal skin turgor Lesions: no lesions Rashes: no rashes Trauma: no lacerations or abrasions Wounds: no wounds Nails: normal Neuro General: patient oriented x3, gait normal and CN's II-XI intact bilaterally Cranial nerves: Yes Equal, round and reactive pupils present Cognition (Neuro): normal cognition Gait exam (Neuro): Normal gait present Motor exam (neuro): 5/5 motor strength present throughout Sensory Exam: No Sensory deficit (Neuro) Deep tendon reflexes (DTR's): Right patellar reflex intensity grade: 2+ and Left patellar reflex intensity grade: 2+ Extrem General: Yes normal to inspection, No edema and No calf tenderness Psych Appearance: grossly normal Affect: normal affect Attitude: cooperative Thought process: Normal thought process present Assessment and Plan Assessment & Plan (1) Normal physical exam: Code(s): Z00.00 - Encounter for general adult medical examination without abnormal findings Plan: No significant physical restrictions or limitations noted Recent labs are unremarkable Continue current treatment regimen Healthy diet and routine exercise encouraged Follow-up with Hematology and biofuels plant operations engineer as planned Return in 1 year for an extended physical exam or sooner with symptoms or concerns Verbalized understanding and agreed with treatment plan (2) : Comment: 14 weeks as of 10/12/23 Due date is 04/10/24 Code(s): Z34.90 - Encounter for supervision of normal , unspecified, unspecified trimester (3) Dextroscoliosis: Code(s): M41.80 - Other forms of scoliosis, site unspecified Plan: Mild dextroscoliosis of the spine Reports history of mild dextroscoliosis at childhood No acute symptoms Patient Instructions: She is 26 weeks with no complication Continue follow [facility] biofuels plant operations engineer as planned Verbalized understanding and agreed with the plan Coding Level of Care Code Est Pt Prev Care 18-39y(55170) Diagnoses Normal physical exam Z00.00 Z34.90 Dextroscoliosis M41.80 Additional Codes ALEA-7 Assessment Billing - ALEA-7 Assessment Tool: ALEA-7 Assessment 40337 ([id number])
== END 2023-10-12 11:21 | disposition home or self-care (01) ==
PROVIDERS: PCP Nurse Practitioner Family; Visit Provider Nurse Practitioner Family
DX: Z00.00 Encounter for general adult medical examination without abnormal findings (principal); Z34.90 Encounter for supervision of normal pregnancy, unspecified, unspecified trimester; M41.80 Other forms of scoliosis, site unspecified
CPT/HCPCS: 99395

== ENCOUNTER 2023-12-21 15:40 | Outpatient (AMB) | payer OTHER, MEDICAID, SELFPAY ==
--- NOTE | 2023-12-21 16:00 | MHC.PC.OV ---
Vital Signs 12/21/23 16:02 Height 5 ft 6 in Weight 172 lb 2 oz BMI 27.8 BP 104/60 Blood Pressure Location Rt brachial Position Sitting Respiration 14 Pulse 94 Pulse Source Pulse Oximeter Temp 97.8 F Temp Source Temporal Artery Scan Pulse Oximetry (%) 99 Oxygen Delivery Method Room Air Intake Visit Reasons: rash on neck Emergency Communications Operator Required: No Accompanied by: Self / Same As Patient Allergies apple Allergy (Severe, Verified 12/21/23 16:07) hives fluconazole Allergy (Severe, Verified 12/21/23 16:07) hives enoxaparin [From Lovenox] Adverse Reaction (Mild, Verified 12/21/23 16:07) Rash Tobacco use date assessed: 10/12/23 Dental Screening Dental Screen Date: 10/12/23 HPI HPI Comments History of Present Illness Details 28-year-old female presents with complaints of itchy flaky skin irritation to her forehead, left eyelid and left side of next. Her symptoms have been ongoing for about 2 months. She has been using an ointment without improvement. She denies new body products or laundry detergent. [facility] Medical History Pulmonary embolism Tiredness Stiffness of right knee Immunization series complete Anal fissure Bloody stools Hemorrhoids Surgical History History of excision of pilonidal cyst History of wisdom tooth extraction History of removal of cyst H/O heart surgery Family History Father Asthma Allergies Mother Anemia Hypertension Maternal Grandmother Hypertension Multiple myeloma Paternal Grandfather Hypertension Prostate cancer Paternal Grandmother Chronic mental illness Other Mental health disorder Social History Housing: House Alcohol intake: current Alcohol intake frequency: holidays/special occasions only Alcohol type: beer Patient Tobacco Use Status: Never used Tobacco e-Cigarette/Vaping Use: Never Used Second Hand Smoke Exposure: No service: No Current occupational status: employed 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 Anders Lynn, Tahmina Crook, Juanjose Osborne and colleagues, with an educational negin from [employer]. Review of Systems Const Details: Const Denies chills, Denies fatigue, Denies fever(s), Denies headache(s) and Denies weakness ENT Denies dizziness and Denies headache(s) Card Denies chest pain, Denies lightheadedness, Denies dyspnea and Denies other (Palpitations) Resp Denies cough, Denies dyspnea, Denies wheezing and Denies other ( shortness of breath) GI Denies abdominal pain, Denies melena, Denies hematochezia, Denies change in bowel habits, Denies dyspepsia and Denies nausea Denies hematuria and Denies dysuria Musc Denies abnormal gait, Denies myalgias, Denies arthralgias, Denies numbness and Denies tingling Skin/Breast Reports as per HPI Neuro Denies abnormal gait, Denies dizziness, Denies headache(s), Denies memory loss, Denies numbness, Denies Sensory deficit (Neuro), Denies tingling and Denies weakness Psych Denies anxiety, Denies depression, Denies memory loss Endo Denies cold intolerance, Denies fatigue, Denies heat intolerance, Denies polydipsia and Denies polyuria Aller/Immun Denies wheezing Physical exam (Primary Care) Vital Signs: Last Vital Signs Temp 97.8 F 12/21/23 16:02 Pulse 94 12/21/23 16:02 Resp 14 12/21/23 16:02 BP 104/60 12/21/23 16:02 Pulse Ox 99 12/21/23 16:02 Oxygen Delivery Method Room Air 12/21/23 16:02 BMI result Body Mass Index 27.8 Tobacco/Smoking Status: Tobacco use Status Tobacco use date assessed 10/12/23 12/21/23 16:01 Patient Tobacco Use Status Never used Tobacco 12/21/23 16:01 e-Cigarette/Vaping Use Never Used 12/21/23 16:01 Thrive Assessment: Date of Thrive Assessment Date Thrive assessed 10/12/23 12/21/23 16:01 Const Other: General: no acute distress and well developed Nutritional Appearance: well nourished Orientation/consciousness: patient oriented x3 [facility] Head: Yes normocephalic and Yes atraumatic Eyes General: appearance normal, both eyes and all related structures Pupils: Equal, round and reactive pupils present EOM: EOMs intact bilaterally Resp Effort & Inspection: normal respiratory effort Auscultation: clear to auscultation bilaterally Cardio Rate: regular rate Rhythm: regular rhythm Heart sounds: S1 normal heart sound present, S2 normal heart sound present, no gallops, no murmurs and no rubs GI Palpation (GI): No Abdominal aortic bruit present, Soft to palpation, nontender, No hepatosplenomegaly present and No Rebound tenderness present Auscultation: normal bowel sounds General: Yes no CVA tenderness Back/Spine/Pelvis Back: no CVA tenderness Cervical Spine: cervical ROM normal and No Cervical spine tenderness Thoracic/Lumbar Spine: thoraco-lumbar ROM normal, No pain with thoraco-lumbar ROM, No thoracic spinal tenderness and No lumbar spinal tenderness Extrem General: Yes normal to inspection, No edema and No calf tenderness Skin General: warm and dry. Normal skin color. Normal skin turgor Lesions: no lesions Rashes: Slightly red, scaly, flaky patches noted to the forehead, left eyelid, and left lateral neck, consistent with fungal rash Trauma: no lacerations or abrasions Wounds: no wounds Nails: normal Neuro General: patient oriented x3, gait normal and no focal neuro deficit Cranial nerves: Yes Equal, round and reactive pupils present Cognition (Neuro): normal cognition Gait exam (Neuro): Normal gait present Sensory Exam: No Sensory deficit (Neuro) Psych Appearance: grossly normal Affect: normal affect Attitude: cooperative Thought process: Normal thought process present Assessment and Plan Assessment & Plan (1) Rash: Code(s): R21 - Rash and other nonspecific skin eruption Plan: Slightly red, scaly, flaky patches noted to the forehead, left eyelid, and left lateral neck, consistent with fungal rash Ketoconazole cream ordered. Advised to use as prescribed. Instructed on the risks, benefits, and potential adverse reactions of the medication Advised to follow-up in 2 weeks with worsening or new signs and symptoms Verbalized understanding and agreed with treatment plan Medications: New ketoconazole 2% 1 appl topical BID PRN 30 grams 0RF rash Coding Level of Care Code Est Pt Level 3 (86192) Diagnoses Rash R21
[2023-12-21 16:02] VITALS: BP 104/60; PULSE 94; RESP 14; TEMP 36.6; O2SAT 99; BMI 27.8
== END 2023-12-21 16:45 | disposition home or self-care (01) ==
PROVIDERS: Visit Provider Nurse Practitioner Family
DX: R21 Rash and other nonspecific skin eruption (principal)
CPT/HCPCS: 99213

== ENCOUNTER 2024-04-13 13:34 | Outpatient (AMB) | payer OTHER, SELFPAY ==
--- NOTE | 2024-04-13 13:48 | A.OFFPC_ITS ---
Vital Signs 04/13/24 13:50 04/13/24 14:23 Height 5 ft 6 in Weight 181 lb 2 oz BMI 29.2 BP 101/51 L 94/60 Blood Pressure Location Lt brachial Rt brachial Position Sitting Sitting Respiration 16 Pulse 79 72 Pulse Source Pulse Oximeter Auscultation Temp 98.2 F Temp Source Temporal Artery Scan Pulse Oximetry (%) 99 Oxygen Delivery Method Room Air Intake Visit Reasons: LightHeadachesEpisodes Intake Note: pt feels light headed and states she has been having low pulses per her apple watch Allergies apple Allergy (Severe, Verified 04/13/24 14:09) hives fluconazole Allergy (Severe, Verified 04/13/24 14:09) hives Medication List - Last Reconciled 04/13/24 by Darwin Shultz CNP enoxaparin (Lovenox) 40 mg (0.4 mL) subcut DAILY ferrous sulfate 325 mg PO DAILY fondaparinux 2.5 mg (0.5 mL) subcut Q24H ketoconazole 2% 1 appl topical BID PRN PNV #[id number] 30 mg iron-10 mg iron-1 mg 30 caps PO DAILY Tobacco use date assessed: 10/12/23 Dental Screening Dental Screen Date: 10/12/23 HPI HPI Comments History of Present Illness Details 28-year-old female, accompanied by her channing walters, presents with complaints of lightheadedness and fatigue for the past few days. She notes that she feels like fainting at times. She notes that she has not been able to sleep; she recently gave to a boy and has been . The baby does not sleep at night. She has been taking ferrous sulfate and lovenox as prescribed. She admits to adequate hydration with water. She notes that heart rate on her Apple watch has been low as 57 PFSH Medical History Pulmonary embolism Tiredness Stiffness of right knee Immunization series complete Anal fissure Bloody stools Hemorrhoids Surgical History History of excision of pilonidal cyst History of wisdom tooth extraction History of removal of cyst H/O heart surgery Family History Father Asthma Allergies Mother Anemia Hypertension Maternal Grandmother Hypertension Multiple myeloma Paternal Grandfather Hypertension Prostate cancer Paternal Grandmother Chronic mental illness Other Mental health disorder Social History Housing: House Alcohol intake: current Alcohol intake frequency: holidays/special occasions only Alcohol type: beer Patient Tobacco Use Status: Never used Tobacco e-Cigarette/Vaping Use: Never Used Second Hand Smoke Exposure: No service: No Current occupational status: employed 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 Anders Lynn, Tahmina Crook, Juanjose Osborne and colleagues, with an educational negin from [employer]. Review of Systems Const Details: Const Denies chills, Reports fatigue, Denies fever(s), Denies headache(s) and Denies weakness ENT Denies dizziness and Denies headache(s) Card Denies chest pain, Reports lightheadedness, Denies dyspnea and Denies other (Palpitations) Resp Denies cough, Denies dyspnea, Denies wheezing and Denies other ( shortness of breath) GI Denies abdominal pain, Denies melena, Denies hematochezia, Denies change in bowel habits, Denies dyspepsia and Denies nausea Denies hematuria and Denies dysuria Musc Denies abnormal gait, Denies myalgias, Denies arthralgias, Denies numbness and Denies tingling Skin/Breast Denies rash, Denies unusual bruising and Denies wounds Neuro Denies abnormal gait, Denies dizziness, Denies headache(s), Denies memory loss, Denies numbness, Denies Sensory deficit (Neuro), Denies tingling and Denies weakness Endo Denies cold intolerance, Reports fatigue, Denies heat intolerance, Denies polydipsia and Denies polyuria Aller/Immun Denies wheezing Physical exam (Primary Care) Vital Signs: Last Vital Signs Temp 98.2 F 04/13/24 13:50 Pulse 79 04/13/24 13:50 Resp 16 04/13/24 13:50 BP 101/51 L 04/13/24 13:50 Pulse Ox 99 04/13/24 13:50 Oxygen Delivery Method Room Air 04/13/24 13:50 BMI result Body Mass Index 29.2 Tobacco/Smoking Status: Tobacco use Status Tobacco use date assessed 10/12/23 04/13/24 13:55 Patient Tobacco Use Status Never used Tobacco 04/13/24 13:55 e-Cigarette/Vaping Use Never Used 04/13/24 13:55 Thrive Assessment: Date of Thrive Assessment Date Thrive assessed 10/12/23 04/13/24 13:55 Const Other: General: no acute distress and well developed Nutritional Appearance: well nourished Orientation/consciousness: patient oriented x3 HEN[facility] Head: Yes normocephalic and Yes atraumatic Eyes General: appearance normal, both eyes and all related structures Pupils: Equal, round and reactive pupils present EOM: EOMs intact bilaterally Resp Effort & Inspection: normal respiratory effort Auscultation: clear to auscultation bilaterally Cardio Rate: regular rate Rhythm: regular rhythm Heart sounds: S1 normal heart sound present, S2 normal heart sound present, no gallops, no murmurs and no rubs GI Palpation (GI): No Abdominal aortic bruit present, Soft to palpation, nontender, No hepatosplenomegaly present and No Rebound tenderness present Auscultation: normal bowel sounds General: Yes no CVA tenderness Back/Spine/Pelvis Back: no CVA tenderness Cervical Spine: cervical ROM normal and No Cervical spine tenderness Thoracic/Lumbar Spine: thoraco-lumbar ROM normal, No pain with thoraco-lumbar ROM, No thoracic spinal tenderness and No lumbar spinal tenderness Extrem General: Yes normal to inspection, No edema and No calf tenderness Skin General: warm and dry. Normal skin color. Normal skin turgor Neuro General: patient oriented x3, gait normal and no focal neuro deficit Cranial nerves: Yes Equal, round and reactive pupils present Cognition (Neuro): normal cognition Gait exam (Neuro): Normal gait present Sensory Exam: No Sensory deficit (Neuro) Psych Appearance: grossly normal Affect: normal affect Attitude: cooperative Thought process: Normal thought process present Assessment and Plan Assessment & Plan (1) Fatigue: Code(s): R53.83 - Other fatigue Plan: Patient reports lightheadedness and fatigue for the past few days; she notes feeling of fainting times. She admits to taking her ferrous sulfate as prescribed and adequate hydration She has history of iron-deficiency anemia. Her H&H on 02/22/2024 was 9.7/30.0; recent iron studies: 69/444/16/ Her symptoms are likely attributed to anemia, although dehydration is possible. Lack of sleep may also be a contributing factor Will check CBC and BMP. Will review results and make changes as needed Adequate hydration encouraged Advised to improved sleep Continue current treatment regimen Follow-up with worsening or new symptoms Verbalized understanding and agreed with treatment plan (2) Lightheadedness: Code(s): R42 - Dizziness and giddiness Plan: Plan as above Orders: Orders Complete Blood Count no Diff Today R42 - Dizziness and giddiness, R53.83 - Other fatigue Basic Metabolic Panel Today R42 - Dizziness and giddiness, R53.83 - Other fa tigue Coding Level of Care Code Est Pt Level 4 (29417) Diagnoses Fatigue R53.83 Lightheadedness R42
[2024-04-13 13:50] VITALS: BP 101/51; PULSE 79; RESP 16; TEMP 36.8; O2SAT 99; BMI 29.2
[2024-04-13 14:23] VITALS: BP 94/60; PULSE 72
== END 2024-04-13 14:52 | disposition home or self-care (01) ==
PROVIDERS: Visit Provider Nurse Practitioner Family
DX: R53.83 Other fatigue (principal); R42 Dizziness and giddiness

== ENCOUNTER → 2024-04-13 13:34 | Outpatient (BNVA) | payer OTHER, SELFPAY | PROVIDERS: Visit Provider Nurse Practitioner Family | DX: R42 Dizziness and giddiness (principal) ==

== ENCOUNTER 2024-04-13 14:32 | Outpatient (REF) | payer OTHER, SELFPAY ==
[2024-04-13 18:56] LABS: Hematocrit 39.9 % (37.0-47.0); Hemoglobin 12.2 g/dl (12.0-16.0); Mean Corpuscular HGB Conc 30.6 g/dl (31.0-35.0); Mean Corpuscular Hemoglobin 26.6 pg (27.0-33.0); Mean Corpuscular Volume 86.9 fL (80.0-98.0); Mean Platelet Volume 9.6 fL (9.4-12.3); Platelet Count 263 X10*3/uL (160-400); Red Blood Count 4.59 X10*6/uL (4.20-5.50); Red Cell Distribution Width 18.5 % (11.0-16.0); White Blood Count 5.4 X10*3/uL (4.8-10.8)
[2024-04-13 19:04] LABS: Anion Gap 12 (12-20); Blood Urea Nitrogen 10 mg/dL (9-16); Calcium 9.4 mg/dL (8.4-10.2); Carbon Dioxide 29 mmol/L (22-29); Chloride 105 mmol/L (96-108); Estimated Glomerular Filt Rate > 60; Glucose Random 88 mg/dL (60-115); Sodium 142 mmol/L (135-145)
== END 2024-04-13 14:33 | disposition home or self-care (01) ==
LOC: HO.WFDLDS 14:32
PROVIDERS: Visit Provider Nurse Practitioner Family
DX: R42 Dizziness and giddiness (principal); D64.9 Anemia, unspecified; R53.83 Other fatigue
CPT/HCPCS: 36415; 80048; 85027

== ENCOUNTER 2024-08-31 12:47 | Outpatient (AMB) | payer OTHER, SELFPAY ==
--- OUTSIDE RECORDS SUMMARY | 2024-08-31 12:54 | XMS_ITS | Encounter Summary ---
Author Organization [facility] Address [address] [place] [id number] Phone Care Team Providers Care Interpreter For The Deaf Name Role Phone Lili Bliss MD Primary Care Provider Unavailabl e Encounter Details Date Type Department Care Team (Late st Contact Info) Description 02/11/2017 Documentation [facility] [place] Family Medicine [address] [place] [address] Family Medicine, Physician [address] [place] [address] Social History Tobacco Use Types Packs/Day Years Used Date Smoking Tobacco: Never Comments:Never smoker Comments Unknown Sex and Gender Information Value Date Recorded Sex Assigned at Not on file Legal Sex Female 4:57 PM EDT Gender Identity Not on file Sexual Orientation Not on file documented as of this encounter Plan of Treatment Not on file documented as of this encounter Visit Diagnoses Not on filedocumented in this encounter Care Teams Interpreter For The Deaf Relationship Specialty Start Date End Date Lili Bliss MD PCP - General 02/26/17 documented as of this encounter
--- OUTSIDE RECORDS SUMMARY | 2024-08-31 12:54 | XMS_ITS | Clinical Summary ---
Author Organization [facility] [employer] Address [address] [place] [address] [address] [place] [address] Care Team Providers Care Internet Programmer Name Role Phone Unavailable Primary Care Provider Unavailabl e Social History Tobacco Use Types Packs/Day Years Used Date Smoking Tobacco: Never Assessed Comments Unknown Sex and Gender Information Value Date Recorded Sex Assigned at Female 05/18/2022 10:23 AM EDT Legal Sex Female 10:23 AM EDT Gender Identity Female 05/18/2022 10:23 AM EDT Sexual Orientation Straight 05/18/2022 10 :23 AM EDT Plan of Treatment Health Maintenance Due Date Last Done Comments Depression Screening 1996 Alcohol/Substance Use Screening 2008 Tobacco Screening 2008 Family Planning (PISQ) 12/16/2011 DTaP/Tdap/Td Vaccines (1 - Tdap) 12/16/2015 Hepatitis B Vaccines (1 of 3 - 19+ 3-dose series) 12/16/2015 Pap Smear 2017 COVID-19 Vaccine (1 - 2023-2 5 season) 2024 Influenza Vaccine (#1) 2024 Zoster Vaccines (1 of 2) 2046 RSV Patients and Pa tients Aged 60 years or older (1 - 1-dose 75+ series) 12/16/2071 HIB Vaccines Aged Out No longer eligi ble based on patient's age to complete this topic HPV Vaccines Aged Out No longer eligi ble based on patient's age to complete this topic Hepatitis A Vaccines Aged Out No long er eligible based on patient's age to complete this topic IPV Vaccines Aged Out No longer eligi ble based on patient's age to complete this topic Meningococcal Vaccine Aged Out No anabel silvestre eligible based on patient's age to complete this topic Pneumococcal Vaccine: Pediat rics (0 to 5 Years) and At-Risk Patients (6 to 49) Years) Aged Out No longer eligible b ased on patient's age to complete this topic RSV under 20 months Aged Out No longe r eligible based on patient's age to complete this topic Rotavirus Vaccines Aged Out No longer eligible based on patient's age to complete this topic
--- OUTSIDE RECORDS SUMMARY | 2024-08-31 12:54 | XMS_ITS | Clinical Summary ---
Author Organization [facility] Address [address] [place] [phone] Phone Care Team Providers Care Mold Inspector Name Role Phone Lili Bliss MD Primary Care Provider Unavailabl e Allergies No known active allergies Medications albuterol HFA 108 (90 BASE) MCG/ACT inhalerIndicati ons:Dizziness Inhale 2 puffs every 4 (four) hours as needed for wheezing or shortness of breath. 1 Units 7 Active hydrOXYzine 25 MG tabletIndicatio ns:Anxiety 1 tablet q6h. prn anxiety 30 tablet 7 Active Active Problems Problem Noted Date Diagnosed Date Aorta coarctation 12/01/2011 Overview (12/26/2017): Has baseline whistling murmur; sees Dr. Dong; has bicuspid valve as well and he suggests SBE prophylaxis; no exercise restrictions Scoliosis 12/01/2011 Anxiety 12/05/2009 Immunizations Immunization Administration Dates Next Due DTaP 5 02/20/2002, 8,07/09/1997,04/20,02/13/1997 H1N1 06/24/2009 HPV, Quadrivalent 11/26/2008,07/27/2008,05/18/20 08 Hep A, ped/adol 01/04/2015,12/22/2013 Hep B, ped/adol 07/09/1997,02/13/1997,1996 Hib (PRP-T) 04/02/1998, 7,04/20/1997,02/13 IPV 02/20/2002 Influenza Split 03/30/2013, 2,05/21/2011,04/17 Influenza, injectable, quadrivalent 07/13/2016,1 07/22/2013 Influenza, injectable, quadr ivalent, preservative free 05/12/2017,04/17/2015 Influenza, injectable, trivalent 009,05/18/2008,04/08/2007,04/30,05/08/2005,05/14/2004,05/24/2003 ,05/12/2002,06/17/2001,05/13/2000,04/18,05/09/1998 MMR 02/18/2001,12/31/1997 Meningococcal Conj (Menactra) MCV4P 01/04/2015,0 07/27/2008 OPV 07/09/1997,04/20/1997,02/13/1997 Tdap 05/18/2008 Varicella 07/27/2008,12/31/1997 Family History Relation Name Status Comments Brother Alive Brother: Autism Father Alive Father: Alive a nd well Maternal Grandfather Materna l grandfather: Cancer -lung Maternal Grandmother Materna l grandmother: Cancer -, Mother Alive Mother: Obesity Other 1 Close relative: Autism Other 2 No family histo ry of Asthma, No family history of Strabismus, Family history of Obesity, Family history of Deafness, No family history of *Sudden /AR under 55, No family history of *Thrombophilia, Family history of Hyperlipidemia, Family history of *CVA/Stroke, No family history of ADD/ADHD, Family history of *Heart Disease, Family history of Diabetes mellitus, Family history of Migraines, No family history of Seizure disorder Paternal Grandfather Alive Paterna l grandfather: Alive and well Paternal Grandmother Alive Paterna l grandmother: Alive and well Social History Tobacco Use Types Packs/Day Years Used Date Smoking Tobacco: Never Comments:Never smoker Comments Unknown Sex and Gender Information Value Date Recorded Sex Assigned at Not on file Legal Sex Female 4:57 PM EDT Gender Identity Not on file Sexual Orientation Not on file Last Filed Vital Signs Vital Sign Reading Time Taken Comments Blood Pressure 112/75 05/12/2017 1:44 PM EDT Pulse 80 06/26/2017 12:20 PM EST Temperature 36.9 ??C (98.4 ??F) 06/26/2017 12:[address] Respiratory Rate - - Oxygen Saturation 100% 06/26/2017 12:20 PM EST Inhaled Oxygen Concentration - - Weight 64 kg (141 lb) 06/26/2017 12:20 PM EST Height 168.9 cm (5' 6.5 ) 01/07/2017 12:00 AM ED T Body Mass Index 22.42 01/07/2017 12:00 AM EDT Plan of Treatment Health Maintenance Due Date Last Done Comments DTaP,Tdap,and Td Vaccines (7 - Td or Tdap) 05/18/2018 05/18/2008, 02/20/2002, 07/09/1998, Additional history exists Influenza Vaccines (#1) 2024 05/12/20 17, 07/13/2016, 04/17/2015, Additional history exists COVID-19 Vaccine ( season) 2024 Hepatitis B Vaccines Completed 07/09/1997, 02/13/1997, 1996 HIB Vaccines Completed 04/02/1998, 06/19, 04/20/1997, Additional history exists MMR Vaccines Completed 02/18/2001, 12/31/1997 IPV Vaccines Completed 02/20/2002, 06/19, 04/20/1997, Additional history exists Varicella Vaccines Completed 07/27/2008, 12/31/1997 HPV Vaccines Completed 11/26/2008, 03/2009, 05/18/2008 Hepatitis A Vaccines Completed 01/04/2015, 12/23/19 14 Meningococcal Vaccine Completed 01/04/2015, 009 Men B Vaccine Aged Out No longer elig ible based on patient's age to complete this topic Pneumococcal Vaccine Aged Out No long er eligible based on patient's age to complete this topic Procedures * Due to [place] Map Decisions law, this organization might not be sharing sensitive test results. Procedure Name Priority Date/Time Associated Diagnosis Comments CHLAMYDIA AND GONORRHEA, AMPLIFIED Routine 07/22/2015 1:17 PM EST from Last 3 Months or Most Recently Relevant to Health Maintenance Results * Due to [place] Map Decisions law, this organization might not be sharing sensitive test results. * Chlamydia and Gonorrhoea, Amplified (07/22/2015 1:17 PM EST) URINE CHLAMYDIA AMP PROBE NEGATIVE [facility] Comment: No Chlamydia Trachomatis RNA detected in this patient's sample (REFERENCE RANGE/NORMAL VALUE: NOT DETECTED) URINE GC AMP PROBE NEGATIVE [facility] Comment: No Neisseria Gonorrhoeae RNA detected in this patient's sample (REFERENCE RANGE/NORMAL VALUE: NOT DETECTED) NOTE: This test uses professor of exercise science-mediated amplification method to detect rRNA from C.Trachomatis and N.Gonorrhoeae. A negative result does not preclude infection. In the case of a negative urine result, testing of an endocervical(female) or urethral(male) specimen is recommended if there is high clinical suspicion of infection. The performance characteristics of this test have not been evaluated in children. The Aptima Combo2 assay is not intended for the evaluation of suspected sexual abuse or for other medico-legal indications. The ordering provider should assess if the patient had consensual sex without risk of sexual abuse. Consult the [facility] [place] if needed. Contact phone number . Therapeutic failure or success cannot be determined with the Aptima Combo2 assay since nucleic acid may persist following appropriate antimicrobial therapy. The Centers for Disease Control and Prevention (CDC) recommends confirmatory retesting using culture or a different nucleic acid amplification test when positive results occur, if indicated. Testing performed or reported by [facility], a Service of [facility], [address] [place] [id number] CLIA ??[id number] Joey Coles MD, PhD, Continuous Dryout Operator 07/22/2015 1:17 PM EST Narrative [facility] - 07/22/2015 1:17 PM EST URINE CHLAMYDIA GC AMP PROBE us Lili Bliss MD LAB MICROBIOLOGY - GENERAL ORDER HEIDI Final Result [facility] [address] [place], [place] [id number], from Last 3 Months or Most Recently Relevant to Health Maintenance Care Teams Mold Inspector Relationship Specialty Start Date End Date Lili Bliss MD PCP - General 02/26/17
--- OUTSIDE RECORDS SUMMARY | 2024-08-31 12:54 | XMS_ITS | Encounter Summary ---
Author Organization [facility] Address [address] [place] [address] Phone Care Team Providers Care Band Saw Marker Name Role Phone Lili Bliss MD Primary Care Provider Unavailabl e Encounter Details Date Type Department Care Team (Late st Contact Info) Description 12/23/2015 Documentation [facility] [place] [address] [place] [address] Family Medicine, Physician [address] [place], [place] [phone] Social History Tobacco Use Types Packs/Day Years [...] on filedocumented in this encounter Care Teams Band Saw Marker Relationship Specialty Start Date End Date Lili Bliss MD PCP - General 02/26/17 documented as of this encounter
--- OUTSIDE RECORDS SUMMARY | 2024-08-31 12:54 | XMS_ITS | Encounter Summary ---
Author Organization [facility] Address [address] [place] [address] Phone Care Team Providers Care Business Advisor Name Role Phone Lili Bliss MD Primary Care Provider Unavailabl e Encounter Details Date Type Department Care Team (Late st Contact Info) Description 02/02/2014 Documentation [facility] [place] [address] [place] [address] Family Medicine, Physician [address] [place], [place] [address] Social History Tobacco Use Types Packs/Day Years [...] on filedocumented in this encounter Care Teams Business Advisor Relationship Specialty Start Date End Date Lili Bliss MD PCP - General 02/26/17 documented as of this encounter
--- OUTSIDE RECORDS SUMMARY | 2024-08-31 12:54 | XMS_ITS | Encounter Summary ---
Author Organization [facility] Address [address] [place] [address] Phone Care Team Providers Care Fruit And Vegetable Factory Worker Name Role Phone Lili Bliss MD Primary Care Provider Unavailabl e Encounter Details Date Type Department Care Team (Late st Contact Info) Description 03/04/2017 Documentation [facility] [place] Medicine [address] [place] [address] Family Medicine, Physician [address] [place] [address] Social History Tobacco Use Types Packs/Day Years [...] on filedocumented in this encounter Care Teams Fruit And Vegetable Factory Worker Relationship Specialty Start Date End Date Lili Bliss MD PCP - General 02/26/17 documented as of this encounter
--- OUTSIDE RECORDS SUMMARY | 2024-08-31 12:54 | XMS_ITS | Encounter Summary ---
Author Organization [facility] Address [address] [place] [address] Phone Care Team Providers Care Elevator Repairer Apprentice Name Role Phone Lili Bliss MD Primary Care Provider Unavailabl e Encounter Details Date Type Department Care Team (Late st Contact Info) Description 12/04/2009 Documentation [facility] [place] [address] [place] [address] Family Medicine, Physician [address] [place], [place] [phone] Social History Tobacco Use Types Packs/Day Years [...] on filedocumented in this encounter Care Teams Elevator Repairer Apprentice Relationship Specialty Start Date End Date Lili Bliss MD PCP - General 02/26/17 documented as of this encounter
--- OUTSIDE RECORDS SUMMARY | 2024-08-31 12:54 | XMS_ITS | Encounter Summary ---
Author Organization [facility] Address [address] [place] [address] [facility] [place] [address] Care Team Providers Care Hotel Recreational Facilities Manager Name Role Phone Unavailable Primary Care Provider Unavailabl e Encounter Details Date Type Department Care Team (Latest Contact Info) Description 08/09/[address] [facility] CONVERSIONS Dental, Provider, DDS Social History Tobacco Use Types Packs/Day Years Used Date Smoking Tobacco: Never Assessed Comments Unknown Sex and Gender Information Value Date Recorded Sex Assigned at Female 05/18/2022 10:23 AM EDT Legal Sex Female 10:23 AM EDT Gender Identity Female 05/18/2022 10:23 AM EDT Sexual Orientation Straight 05/18/2022 10 :23 AM EDT documented as of this encounter Plan of Treatment Not on file documented as of this encounter Visit Diagnoses Not on filedocumented in this encounter
--- OUTSIDE RECORDS SUMMARY | 2024-08-31 12:54 | XMS_ITS | Encounter Summary ---
Author Organization [facility] Address [address] [place] [address] Phone Care Team Providers Care Appeals And Generalist Clerk Name Role Phone Lili Bliss MD Primary Care Provider Unavailabl e Encounter Details Date Type Department Care Team (Late st Contact Info) Description 06/22/2010 Documentation [facility] [place] Family Medicine [address] [place] [address] Family Medicine, Physician [address] [place], [place] [address] Social History Tobacco Use Types Packs/Day Years [...] on filedocumented in this encounter Care Teams Appeals And Generalist Clerk Relationship Specialty Start Date End Date Lili Bliss MD PCP - General 02/26/17 documented as of this encounter
--- OUTSIDE RECORDS SUMMARY | 2024-08-31 12:54 | XMS_ITS | Encounter Summary ---
Author Organization [facility] Address [address] [place] [address] Phone Care Team Providers Care Firebrick Layer Name Role Phone Lili Bliss MD Primary Care Provider Unavailabl e Encounter Details Date Type Department Care Team (Late st Contact Info) Description 03/04/2017 Conversion Encounter [facility] - [address] [address] Social History Tobacco Use Types Packs/Day Years [...] on filedocumented in this encounter Care Teams Firebrick Layer Relationship Specialty Start Date End Date Lili Bliss MD PCP - General 02/26/17 documented as of this encounter
--- OUTSIDE RECORDS SUMMARY | 2024-08-31 12:54 | XMS_ITS | Encounter Summary ---
Author Organization [facility] Address [address] [place] [address] Phone Care Team Providers Care Order Tracer Name Role Phone Lili Bliss MD Primary Care Provider Unavailabl e Encounter Details Date Type Department Care Team (Late st Contact Info) Description 10/28/2009 Documentation [facility] [place] Medicine [address] [place] [address] Family Medicine, Physician [address] [place], [place] [phone] Social History Tobacco Use Types Packs/Day Years [...] on filedocumented in this encounter Care Teams Order Tracer Relationship Specialty Start Date End Date Lili Bliss MD PCP - General 02/26/17 documented as of this encounter
--- OUTSIDE RECORDS SUMMARY | 2024-08-31 12:54 | XMS_ITS | Encounter Summary ---
Author Organization [facility] Address [address] [place] [address] Phone Care Team Providers Care Screw Machine Adjuster Automatic Name Role Phone Lili Bliss MD Primary Care Provider Unavailabl e Encounter Details Date Type Department Care Team (Late st Contact Info) Description 03/04/2017 Documentation [facility] [place] Family Medicine [address] [place] [address] Family Medicine, Physician [address] [place] [address] Social History Tobacco Use Types Packs/Day Years [...] on filedocumented in this encounter Care Teams Screw Machine Adjuster Automatic Relationship Specialty Start Date End Date Lili Bliss MD PCP - General 02/26/17 documented as of this encounter
--- OUTSIDE RECORDS SUMMARY | 2024-08-31 12:54 | XMS_ITS | Encounter Summary ---
Author Organization [facility] Address [address] [place] [address] Phone Care Team Providers Care Analyst Competitive Intelligence Name Role Phone Lili Bliss MD Primary Care Provider Unavailabl e Encounter Details Date Type Department Care Team (Late st Contact Info) Description 03/04/2017 Documentation [facility] [place] [facility] [place] [address] [place] [address] Family Medicine, Physician [address] [place] [address] Social History Tobacco Use Types Packs/Day Years [...] on filedocumented in this encounter Care Teams Analyst Competitive Intelligence Relationship Specialty Start Date End Date Lili Bliss MD PCP - General 02/26/17 documented as of this encounter
--- OUTSIDE RECORDS SUMMARY | 2024-08-31 12:54 | XMS_ITS | Encounter Summary ---
Author Organization [facility] Address [address] [place] [address] Phone Care Team Providers Care International First Officer Name Role Phone Lili Bliss MD Primary Care Provider Unavailabl e Encounter Details Date Type Department Care Team (Late st Contact Info) Description 06/22/2010 [place] [facility] [place] [address] [place] [address] Family Medicine, Physician [address] [place], [place] [address] Social History Tobacco Use Types Packs/Day Years [...] on filedocumented in this encounter Care Teams International First Officer Relationship Specialty Start Date End Date Lili Bliss MD PCP - General 02/26/17 documented as of this encounter
--- NOTE | 2024-08-31 12:58 | A.OFFPC_ITS ---
Vital Signs 08/31/24 13:02 Height 5 ft 6 in Weight 180 lb 8 oz BMI 29.1 BP 114/72 Blood Pressure Location Lt brachial Position Sitting Respiration 12 Pulse 90 Pulse Source Pulse Oximeter Temp 98.1 F Temp Source Oral Pulse Oximetry (%) 99 Oxygen Delivery Method Room Air Intake Visit Reasons: Ear pain Intake Note: Ear pain, mostly on the left. Left ear feels full. Was on a course of antibiotic on 08/15/2024 for 10 days. sxs for 3 weeks. Sore throat started this morning. Went to Urgent care in [place] 3 weeks ago. Water Well Driller Required: No Allergies apple Allergy (Severe, Verified 08/31/24 13:31) hives fluconazole Allergy (Severe, Verified 08/31/24 13:31) hives Tobacco use date assessed: 10/12/23 Dental Screening Dental Screen Date: 10/12/23 HPI HPI Comments History of Present Illness Details 28-year-old female presents with complai nts of intermittent left ear pain for the past 3 weeks. She was evaluated at an urgent care on 08/15/2024 with same complaint and was prescribed Amoxicillin BID x 10 days for left ear pain and sinus infection. She completed the course of Amoxicillin. Her symptoms resolved except for the left ear pain. She experienced left upper jaw and ear pain especially with opening her mouth or chewing on the left side. She denies associated symptoms. She reports intermitted anxiety symptoms. She feels as though she is unable to breathe at times. Her symptoms have been occurring a few times weekly for the past 6-7 months and worsened in the past 2 months. Her NON CATEGORICAL PRESCHOOL TEACHER prescribed sertraline in June,; she picked up the medication but has not taken it due to fear of adverse reactions. She requests as needed medication for anxiety. She talks with a therapist once weekly. She does not exercise. [facility] Medical History Pulmonary embolism Tiredness Stiffness of right knee Immunization series complete Anal fissure Bloody stools Hemorrhoids Surgical History History of excision of pilonidal cyst History of wisdom tooth extraction History of removal of cyst H/O heart surgery Family History Father Asthma Allergies Mother Anemia Hypertension Maternal Grandmother Hypertension Multiple myeloma Paternal Grandfather Hypertension Prostate cancer Paternal Grandmother Chronic mental illness Other Mental health disorder Social History (Updated 08/31/24 @ 13:06 by Radha Luna CMA) Housing: House Alcohol intake: current Alcohol intake frequency: holidays/special occasions only Alcohol type: beer Patient Tobacco Use Status: Never used Tobacco e-Cigarette/Vaping Use: Never Used Second Hand Smoke Exposure: No service: No Current occupational status: employed 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 1. Little interest or pleasure in doing things: several days 2. Feeling down, depressed, or hopeless: more than half the days 3. Trouble falling or staying asleep, or sleeping too much: not at all 4. Feeling tired or having little energy: several days 5. Poor appetite or overeating: not at all 6. Feeling bad about yourself - or that you are a failure or have let yourself or your family down: not at all 7. Trouble concentrating on things, such as reading the newspaper or watching television: several days 8. Moving or speaking so slowly that other people could have noticed. Or the opposite - being so fidgety or restless that you have been moving around a lot more than usual: not at all 9. Thoughts that you would be better off or of hurting yourself in some way: not at all Total score: 5 Depression Screening Interpretation: Positive Depression Screening Done: Yes 63465 - PHQ-9 Billing: Yes Source: Developed by Drs. Anders Lynn, Tahmina Crook, Juanjose Osborne and colleagues, with an educational negin from [employer]. Thrive Questionnaire Date Thrive assessed: 08/31/24 I am a: Patient What is your living situation today?: I have a steady place to live Within the past 12 months, did the food you bought not last and you didn't have the money to get more?: Never true Within the past 12 months, did you worry whether your food would run out before you got money to buy more?: Never true Do you have trouble paying for medicines?: No Do you have trouble getting transportation to medical appointments?: No Do you have trouble paying your heating and electricity bill?: No Do you have trouble taking care of your child, family member or friend?: No Do you have trouble with day-to-day activities such as bathing, preparing meals, shopping, managing finances, etc.?: No Are you currently unemployed and looking for a job?: No Are you interested in more education?: No Please select the resources that you would like help with: None Currently or been in a relationship where the following occur: I choose not to answer THRIVE Score: 0 AUDIT C Alcohol Use Questionnaire (AUDIT-C) 1. How often do you have a drink containing alcohol?: Monthly or less 2. How many drinks containing alcohol do you have on a typical day when you are drinking?: 1 or 2 3. How often do you have six or more drinks on one occasion?: Never Total Score: 1 ALEA-7 AMB Questionnaire ALEA-7 Date ALEA - 7 assessed: 08/31/24 Feeling nervous, anxious, or on edge: 3 = Nearly every day Not being able to stop or control worryin = Several days Worrying too much about different things: 1 = Several days Trouble relaxin = Not at all Being so restless that it is hard to sit still: 0 = Not at all Becoming easily annoyed or irritable: 2 = More than half the days Feeling afraid as if something awful might happen: 0 = Not at all Total ALEA-7 score (0-4 normal; 5-9 mild; 10-14 moderate; 15-21 severe): 7 Source: Developed by Drs. Anders Lynn, Tahmina Crook, Juanjose Osborne and colleagues, with an educational negin from [employer]. ALEA-7 Assessment Billing ALEA-7 Assessment Tool: ALEA-7 Assessment 91511 Review of Systems Const Details: All systems reviewed and are unremarkable except as noted in HPI Physical exam (Primary Care) Vital Signs: Last Vital Signs Temp 98.1 F 08/31/24 13:02 Pulse 90 08/31/24 13:02 Resp 12 08/31/24 13:02 BP 114/72 08/31/24 13:02 Pulse Ox 99 08/31/24 13:02 Oxygen Delivery Method Room Air 08/31/24 13:02 BMI result Body Mass Index 29.1 Tobacco/Smoking Status: Tobacco use Status Tobacco use date assessed 10/12/23 08/31/24 13:01 Patient Tobacco Use Status Never used Tobacco 08/31/24 13:06 e-Cigarette/Vaping Use Never Used 08/31/24 13:06 PHQ-9: PHQ-9 Score PHQ-9: Total score 5 08/31/24 13:06 Depression Screening Interpretation: Positive Thrive Assessment: Date of Thrive Assessment Date Thrive assessed 08/31/24 08/31/24 13:01 Currently or been in a relationship where the following occur: I choose not to answer Const Other: General: no acute distress and well developed Nutritional Appearance: well nourished Orientation/consciousness: patient oriented x3 HENMT Head is normocephalic Bilateral ear canal and TM are normal Nasal turbinates and oropharynx are pink and moist Sinuses are nontender with palpation No auricular or cervical lymphadenopathy Eyes General: appearance normal, both eyes and all related structures Pupils: Equal, round and reactive pupils present EOM: EOMs intact bilaterally Mouth Pain to the left TMJ with mouth opening and closure. No edema or erythema. No overt injury or trauma. Resp Effort & Inspection: normal respiratory effort Auscultation: clear to auscultation bilaterally Cardio Rate: regular rate Rhythm: regular rhythm Heart sounds: S1 normal heart sound present, S2 normal heart sound present, no gallops, no murmurs and no rubs GI Palpation (GI): No Abdominal aortic bruit present, Soft to palpation, nontender, No hepatosplenomegaly present and No Rebound tenderness present Auscultation: normal bowel sounds General: Yes no CVA tenderness Back/Spine/Pelvis Back: no CVA tenderness Cervical Spine: cervical ROM normal and No Cervical spine tenderness Thoracic/Lumbar Spine: thoraco-lumbar ROM normal, No pain with thoraco-lumbar ROM, No thoracic spinal tenderness and No lumbar spinal tenderness Extrem General: Yes normal to inspection, No edema and No calf tenderness Skin General: warm and dry. Normal skin color. Normal skin turgor Neuro General: patient oriented x3, gait normal and no focal neuro deficit Cranial nerves: Yes Equal, round and reactive pupils present Cognition (Neuro): normal cognition Gait exam (Neuro): Normal gait present Sensory Exam: No Sensory deficit (Neuro) Psych Appearance: grossly normal Affect: normal affect Attitude: cooperative Thought process: Normal thought process present Coding Level of Care Code Est Pt Level 4 (88450) Diagnoses TMJ (temporomandibular joint disorder) M26.609 Anxiety F41.9 Additional Codes ALEA-7 Assessment Billing - ALEA-7 Assessment Tool: ALEA-7 Assessment 57872 ([id number]) PHQ-9 - 49973 - PHQ-9 Billing: Yes ([id number]) Assessment & Plan Assessment & Plan (1) TMJ (temporomandibular joint disorder): Code(s): M26.609 - Unspecified temporomandibular joint disorder, unspecified side Category: Medical Plan: Normal bilateral ear exam. Pain to the left TMJ with mouth opening and closure. No edema or erythema. No overt injury or trauma. May take Tylenol or ibuprofen for pain or discomfort. Warm/cool compresses encouraged. Avoid chewing solid foods to left side until healed. May wear a mouth guard to sleep to prevent teeth grinding which will aggravate symptoms. Follow-up with worsening or new symptoms. Verbalized understanding and agreed with treatment plan. (2) Anxiety: Code(s): F41.9 - Anxiety disorder, unspecified Category: Medical Plan: She has been experiencing anxiety symptoms for the past 6-7 months. However, her symptoms have worsened in the past 2 months and she sometimes feels as though she is unable to breathe. Her NON CATEGORICAL PRESCHOOL TEACHER prescribed sertraline in June,; she picked up the medication but has not taken it due to fear of adverse reactions. PHQ-9 and ALEA-7 scores revealed mild depression and anxiety. She talks with a therapist once weekly and encouraged to continue. SSRI adverse reactions reviewed with the patient. Hydroxyzine 25 mg twice daily as needed ordered; instructed on the risks, benefits, and potential adverse reactions of the medication. Follow-up as planned next month for an extended physical exam; will reassess anxiety and depression. Return sooner with worsening or new symptoms. Verbalized understanding and agreed with treatment plan. Medications: New hydroxyzine HCl 25 mg PO BID PRN 60 tabs 2RF anxiety
[2024-08-31 13:02] VITALS: BP 114/72; PULSE 90; RESP 12; TEMP 36.7; O2SAT 99; BMI 29.1
== END 2024-08-31 13:50 | disposition home or self-care (01) ==
PROVIDERS: PCP Nurse Practitioner Family; Visit Provider Nurse Practitioner Family
DX: M26.609 Unspecified temporomandibular joint disorder, unspecified side (principal); F41.9 Anxiety disorder, unspecified

== ENCOUNTER → 2024-08-31 12:47 | Outpatient (BNVA) | payer OTHER, MEDICAID, SELFPAY | PROVIDERS: PCP Nurse Practitioner Family; Visit Provider Nurse Practitioner Family | DX: M26.602 Left temporomandibular joint disorder, unspecified (principal); F41.9 Anxiety disorder, unspecified | CPT/HCPCS: 96127 ==

== ENCOUNTER 2024-09-29 13:13 | Outpatient (REF) | payer OTHER, SELFPAY ==
[2024-09-29 14:24] LABS: Hematocrit 40.1 % (37.0-47.0); Hemoglobin 12.8 g/dl (12.0-16.0); Mean Corpuscular HGB Conc 31.9 g/dl (31.0-35.0); Mean Corpuscular Hemoglobin 26.7 pg (27.0-33.0); Mean Corpuscular Volume 83.7 fL (80.0-98.0); Mean Platelet Volume 10.4 fL (9.4-12.3); Platelet Count 221 X10*3/uL (160-400); Red Blood Count 4.79 X10*6/uL (4.20-5.50); Red Cell Distribution Width 12.9 % (11.0-16.0); White Blood Count 5.8 X10*3/uL (4.8-10.8)
--- OUTSIDE RECORDS SUMMARY | 2024-09-29 14:48 | XMS_ITS | Encounter Summary ---
Author Organization [facility] Address [address] [place] [address] Phone Care Team Providers Care Teletype Operator Name Role Phone Lili Bliss MD Primary Care Provider Unavailabl e Encounter Details Date Type Department Care Team (Late st Contact Info) Description 06/22/2010 Documentation [facility] [place] [address] [place] [address] Family Medicine, Physician [address] [place], [place] [phone] Social History Tobacco Use Types Packs/Day Years [...] on filedocumented in this encounter Care Teams Teletype Operator Relationship Specialty Start Date End Date Lili Bliss MD PCP - General 02/26/17 documented as of this encounter
--- OUTSIDE RECORDS SUMMARY | 2024-09-29 14:48 | XMS_ITS | Encounter Summary ---
Author Organization [facility] Address [address] [place] [address] Phone Care Team Providers Care Pharmaceutical Sales Representative Name Role Phone Lili Bliss MD Primary Care Provider Unavailabl e Encounter Details Date Type Department Care Team (Late st Contact Info) Description 12/04/2009 Documentation [facility] [place] Medicine [address] [place] [address] Family Medicine, Physician [address] [place], [place] [phone] Social History Tobacco Use Types Packs/Day Years [...] on filedocumented in this encounter Care Teams Pharmaceutical Sales Representative Relationship Specialty Start Date End Date Lili Bliss MD PCP - General 02/26/17 documented as of this encounter
--- OUTSIDE RECORDS SUMMARY | 2024-09-29 14:48 | XMS_ITS | Clinical Summary ---
Author Organization [facility] Address [address] [place] [address] Phone Care Team Providers Care Special Education Classroom Aide Name Role Phone Lili Bliss MD Primary [...] of Deafness, No family history of *Sudden /OR under 55, No family history of *Thrombophilia, [...] complete this topic Procedures * Due to [place] [employer] law, this organization might not be sharing sensitive test results. Procedure Name Priority Date/Time Associated Diagnosis Comments CHLAMYDIA AND GONORRHEA, AMPLIFIED Routine 07/22/2015 1:17 PM EST from Last 3 Months or Most Recently Relevant to Health Maintenance Results * Due to [place] [employer] law, this organization might not be sharing sensitive test results. * Chlamydia and Gonorrhoea, Amplified (07/22/2015 1:17 PM EST) URINE CHLAMYDIA AMP PROBE NEGATIVE [facility] Comment: No Chlamydia Trachomatis RNA detected in this patient's sample (REFERENCE RANGE/NORMAL VALUE: NOT DETECTED) URINE GC AMP PROBE NEGATIVE [facility] Comment: No Neisseria Gonorrhoeae RNA detected in this patient's sample (REFERENCE RANGE/NORMAL VALUE: NOT DETECTED) NOTE: This test uses aircraft steel fabricator-mediated amplification method to detect rRNA from C.Trachomatis [...] without risk of sexual abuse. Consult the [facility] [place] if needed. Contact phone number . Therapeutic failure or success cannot be determined with the Aptima Combo2 assay since nucleic acid may persist following appropriate antimicrobial therapy. The Centers for Disease Control and Prevention (CDC) recommends confirmatory retesting using culture or a different nucleic acid amplification test when positive results occur, if indicated. Testing performed or reported by [facility], a Service of [facility], [address] [place] [address] CLIA ??[id number] Joey Coles MD, PhD, Process Trainer 07/22/2015 1:17 PM EST Narrative [facility] - 07/22/2015 1:17 PM EST URINE CHLAMYDIA GC AMP PROBE us Lili Bliss MD LAB MICROBIOLOGY - GENERAL ORDER HEIDI Final Result [facility] [address] [place], [place] [id number], from Last 3 Months or Most Recently Relevant to Health Maintenance Care Teams Special Education Classroom Aide Relationship Specialty Start Date End Date Lili Bliss MD PCP - General 02/26/17
--- OUTSIDE RECORDS SUMMARY | 2024-09-29 14:48 | XMS_ITS | Encounter Summary ---
Author Organization [facility] Address [address] [place] [address] Phone Care Team Providers Care Stock Checkerer Name Role Phone Lili Bliss MD Primary Care Provider Unavailabl e Encounter Details Date Type Department Care Team (Late st Contact Info) Description 10/28/2009 Documentation [facility] [place] Family Medicine [address] [place] [address] Family Medicine, Physician [address] [place], [place] [id number] Social History Tobacco Use Types Packs/Day Years [...] on filedocumented in this encounter Care Teams Stock Checkerer Relationship Specialty Start Date End Date Lili Bliss MD PCP - General 02/26/17 documented as of this encounter
--- OUTSIDE RECORDS SUMMARY | 2024-09-29 14:48 | XMS_ITS | Encounter Summary ---
Author Organization [facility] Address [address] [place] [address] Phone Care Team Providers Care Nut Cracker Name Role Phone Lili Bliss MD Primary Care Provider Unavailabl e Encounter Details Date Type Department Care Team (Late st Contact Info) Description 02/02/2014 Documentation [facility] [place] Family Medicine [address] [place] [address] Family Medicine, Physician [address] [place], [place] [phone] Social History Tobacco Use Types Packs/Day Years [...] on filedocumented in this encounter Care Teams Nut Cracker Relationship Specialty Start Date End Date Lili Bliss MD PCP - General 02/26/17 documented as of this encounter
--- OUTSIDE RECORDS SUMMARY | 2024-09-29 14:48 | XMS_ITS | Encounter Summary ---
Author Organization [facility] Address [address] [place] [address] [address] [place] [address] Care Team Providers Care Hydraulic Punch Press Operator Name Role Phone Unavailable Primary Care Provider Unavailabl e Encounter Details Date Type Department Care Team (Latest Contact Info) Description 08/09/2018 Abstract [facility] CONVERSIONS Dental, Provider, DDS Social [...]
--- OUTSIDE RECORDS SUMMARY | 2024-09-29 14:48 | XMS_ITS | Encounter Summary ---
Author Organization [facility] Address [address] [place] [phone] Phone Care Team Providers Care Radiation Oncology Therapist Name Role Phone Lili Bliss MD Primary Care Provider Unavailabl e Encounter Details Date Type Department Care Team (Late st Contact Info) Description 03/04/2017 Documentation [facility] [place] Family Medicine [address] [place] [address] Family Medicine, Physician [address] [place] [address] Social History Tobacco Use Types Packs/Day Years [...] on filedocumented in this encounter Care Teams Radiation Oncology Therapist Relationship Specialty Start Date End Date Lili Bliss MD PCP - General 02/26/17 documented as of this encounter
--- OUTSIDE RECORDS SUMMARY | 2024-09-29 14:48 | XMS_ITS | Clinical Summary ---
Author Organization [facility] Address [address] [place] [address] 7 [place] [address] Care Team Providers Care Variety Performer Name Role Phone Unavailable Primary Care Provider [...]
--- OUTSIDE RECORDS SUMMARY | 2024-09-29 14:48 | XMS_ITS | Encounter Summary ---
Author Organization [facility] Address [address] [place] [address] Phone Care Team Providers Care Heavy Forger Helper Name Role Phone Lili Bliss MD Primary Care Provider Unavailabl e Encounter Details Date Type Department Care Team (Late st Contact Info) Description 06/22/2010 Documentation [facility] [place] Family Medicine [address] [place] [address] Family Medicine, Physician [address] [place], [place] [phone] Social History Tobacco Use Types Packs/Day Years [...] on filedocumented in this encounter Care Teams Heavy Forger Helper Relationship Specialty Start Date End Date Lili Bliss MD PCP - General 02/26/17 documented as of this encounter
--- OUTSIDE RECORDS SUMMARY | 2024-09-29 14:48 | XMS_ITS | Encounter Summary ---
Author Organization [facility] Address [address] [place] [address] Phone Care Team Providers Care Roll Form Operator Name Role Phone Lili Bliss MD Primary Care Provider Unavailabl e Encounter Details Date Type Department Care Team (Late st Contact Info) Description 12/23/2015 Documentation [facility] [place] [address] [place] [address] Family Medicine, Physician [address] [place], [place] [address] Social History Tobacco Use Types Packs/Day Years [...] on filedocumented in this encounter Care Teams Roll Form Operator Relationship Specialty Start Date End Date Lili Bliss MD PCP - General 02/26/17 documented as of this encounter
--- OUTSIDE RECORDS SUMMARY | 2024-09-29 14:49 | XMS_ITS | Encounter Summary ---
Author Organization [facility] Address [address] [place] [address] Phone Care Team Providers Care Domestic Violence Counselor Name Role Phone Lili Bliss MD Primary Care Provider Unavailabl e Encounter Details Date Type Department Care Team (Late st Contact Info) Description 03/04/2017 Conversion Encounter [facility] - [address] [address] Social History Tobacco Use Types Packs/Day Years [...] on filedocumented in this encounter Care Teams Domestic Violence Counselor Relationship Specialty Start Date End Date Lili Bliss MD PCP - General 02/26/17 documented as of this encounter
--- OUTSIDE RECORDS SUMMARY | 2024-09-29 14:49 | XMS_ITS | Encounter Summary ---
Author Organization [facility] Address [address] [place] [address] Phone Care Team Providers Care Director Of Surgery Name Role Phone Lili Bliss MD Primary Care Provider Unavailabl e Encounter Details Date Type Department Care Team (Late st Contact Info) Description 03/04/2017 Documentation [facility] [place] Medicine [address] [place] [address] Family Medicine, Physician [address] [place] [address] Social History Tobacco Use Types Packs/Day Years [...] on filedocumented in this encounter Care Teams Director Of Surgery Relationship Specialty Start Date End Date Lili Bliss MD PCP - General 02/26/17 documented as of this encounter
--- OUTSIDE RECORDS SUMMARY | 2024-09-29 14:49 | XMS_ITS | Encounter Summary ---
Author Organization [facility] Address [address] [place] [address] Phone Care Team Providers Care Drug Safety Assistant Name Role Phone Lili Bliss MD Primary Care Provider Unavailabl e Encounter Details Date Type Department Care Team (Late st Contact Info) Description 02/11/[address] [facility] [place] Family Medicine [address] [place] [address] Family Medicine, Physician [address] [place] [address] Social History Tobacco Use Types Packs/Day Years [...] on filedocumented in this encounter Care Teams Drug Safety Assistant Relationship Specialty Start Date End Date Lili Bliss MD PCP - General 02/26/17 documented as of this encounter
--- OUTSIDE RECORDS SUMMARY | 2024-09-29 14:49 | XMS_ITS | Encounter Summary ---
Author Organization [facility] Address [address] [place] [address] Phone Care Team Providers Care Firefighter Type One Name Role Phone Llii Bliss MD Primary Care Provider Unavailabl e Encounter Details Date Type Department Care Team (Late st Contact Info) Description 03/04/2017 Documentation [facility] [place] [address] [place] [address] Family Medicine, Physician [address] [place] [address] Social History Tobacco Use Types Packs/Day Years [...] on filedocumented in this encounter Care Teams Firefighter Type One Relationship Specialty Start Date End Date Lili Bliss MD PCP - General 02/26/17 documented as of this encounter
[2024-09-29 15:06] LABS: TSH reflex Free T4 0.07 uIU/mL (0.32-4.0); Vitamin D 25-OH Total 33.1 ng/mL (>30)
[2024-09-29 17:11] LABS: Free T4 (Free Thyroxine) 1.42 ng/dL (0.71-1.85)
== END 2024-09-29 13:14 | disposition home or self-care (01) ==
LOC: HO.LAB 13:13
PROVIDERS: PCP Nurse Practitioner Family; Visit Provider Nurse Practitioner Family
DX: R53.83 Other fatigue (principal); R42 Dizziness and giddiness
CPT/HCPCS: 36415; 82306; 84439; 84443; 85027

== ENCOUNTER 2024-10-02 12:29 | Outpatient (REF) | payer OTHER, SELFPAY ==
[2024-10-02 14:48] LABS: TSH reflex Free T4 0.03 uIU/mL (0.32-4.0)
[2024-10-02 15:32] LABS: Free T4 (Free Thyroxine) 1.52 ng/dL (0.71-1.85)
[2024-10-03 07:34] LABS: Triiodothyronine T3 Total 162 ng/dL (76-181)
== END 2024-10-02 12:30 | disposition home or self-care (01) ==
LOC: HO.LAB 12:29
PROVIDERS: PCP Nurse Practitioner Family; Visit Provider Nurse Practitioner Family
DX: R79.89 Other specified abnormal findings of blood chemistry (principal)
CPT/HCPCS: 36415; 84439; 84443; 84480

== ENCOUNTER 2024-10-02 12:29 | Outpatient (AMB) | payer OTHER, SELFPAY ==
--- NOTE | 2024-10-02 12:26 | A.OFFPC_ITS ---
Intake Visit Reasons: Labs Intake Note: [facility] review Sea Shell Gatherer Required: No Is last menstrual period known: Yes Last menstrual period: 10/01/24 Post menopausal: No Patient : No Allergies apple Allergy (Severe, Verified 10/02/24 12:27) hives fluconazole Allergy (Severe, Verified 10/02/24 12:27) hives Tobacco use date assessed: 10/02/24 Dental Screening Dental Screen Date: 10/02/24 Did you have a dental visit in the last 12 months?: No Did you have a dental problem in the last 6 months where you did not have access to dental care?: No Was dental information given to patient?: Patient has dentist HPI HPI Comments History of Present Illness Details 28-year-old female [facility] of recent lab results. She notes persistent fatigue. She has been complaining of fatigue since 04/07/2024. No acute symptoms at this time. [facility] Medical History Pulmonary embolism Tiredness Stiffness of right knee Immunization series complete Anal fissure Bloody stools Hemorrhoids Surgical History History of excision of pilonidal cyst History of wisdom tooth extraction History of removal of cyst H/O heart surgery Family History Father Asthma Allergies Mother Anemia Hypertension Maternal Grandmother Hypertension Multiple myeloma Paternal Grandfather Hypertension Prostate cancer Paternal Grandmother Chronic mental illness Other Mental health disorder Social History (Updated 08/31/24 @ 13:06 by Radha Luna CMA) Housing: House Alcohol intake: current Alcohol intake frequency: holidays/special occasions only Alcohol type: beer Patient Tobacco Use Status: Never used Tobacco e-Cigarette/Vaping Use: Never Used Second Hand Smoke Exposure: No Patient : No service: No Current occupational status: employed 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 Cognitive needs: No Hearing needs: No Vision needs: No Female Reproductive History Menstrual Date of last menstrual period: 10/01/24 Questionnaire Thrive Questionnaire Date Thrive assessed: 08/31/24 I am a: Patient What is your living situation today?: I have a steady place to live Within the past 12 months, did the food you bought not last and you didn't have the money to get more?: Never true Within the past 12 months, did you worry whether your food would run out before you got money to buy more?: Never true Do you have trouble paying for medicines?: No Do you have trouble getting transportation to medical appointments?: No Do you have trouble paying your heating and electricity bill?: No Do you have trouble taking care of your child, family member or friend?: No Do you have trouble with day-to-day activities such as bathing, preparing meals, shopping, managing finances, etc.?: No Are you currently unemployed and looking for a job?: No Are you interested in more education?: No Please select the resources that you would like help with: None Currently or been in a relationship where the following occur: I choose not to answer THRIVE Score: 0 ALEA-7 AMB Questionnaire ALEA-7 Date ALEA - 7 assessed: 08/31/24 Source: Developed by Drs. Anders Lynn, Tahmina Crook, Juanjose Osborne and colleagues, with an educational negin from [employer]. Review of Systems Const Details: Const Denies chills, Reports fatigue, Denies fever(s), Denies headache(s) and Denies weakness ENT Denies dizziness and Denies headache(s) Card Denies chest pain, Denies lightheadedness, Denies dyspnea and Denies other (Palpitations) Resp Denies cough, Denies dyspnea, Denies wheezing and Denies other ( shortness of breath) Endo Denies cold intolerance, Reports fatigue, Denies heat intolerance, Denies polydipsia and Denies polyuria Physical exam (Primary Care) Tobacco/Smoking Status: Tobacco use Status Tobacco use date assessed 10/02/24 10/02/24 12:29 Patient Tobacco Use Status Never used Tobacco 10/02/24 12:29 e-Cigarette/Vaping Use Never Used 10/02/24 12:29 Thrive Assessment: Date of Thrive Assessment Date Thrive assessed 08/31/24 10/02/24 12:29 Currently or been in a relationship where the following occur: I choose not to answer Const Other: Patient is alert and oriented x3. Telehealth Telehealth Telehealth Platform: Telephone Location of provider rendering services: practice address Location of patient: address on file Patient Identification confirmed using: Name, : Yes Telehealth method: voice only Patient verbally consented to treatment: Yes Patient verbally consented to billing insurance company: Yes Patient informed of any privacy concerns related to visit: Yes Coding Level of Care Code Tele Est Pt Level 3 (09740) Diagnoses Low TSH level R79.89 Time Spent (min) 10 Assessment & Plan Assessment & Plan (1) Low TSH level: Code(s): R79.89 - Other specified abnormal findings of blood chemistry Category: Medical Plan: Recent TSH is low, 0.07, free T4 is normal. Hypothyroidism is likely the cause of her fatigue. Will recheck TSH/T4 and check T3. Will make changes as needed. She will have blood work done today. Follow-up as planned for an extended physical exam next week. Return sooner with symptoms or concerns. Verbalized understanding and agreed with treatment plan.
== END 2024-10-02 13:17 | disposition home or self-care (01) ==
LOC: HO.HMCFM 12:29
PROVIDERS: PCP Nurse Practitioner Family; Visit Provider Nurse Practitioner Family
DX: R79.89 Other specified abnormal findings of blood chemistry (principal)

== ENCOUNTER 2024-10-10 13:55 | Outpatient (REF) | payer OTHER, SELFPAY ==
[2024-10-14 21:13] LABS: Thyrotropin Receptor Antibody 1.71 IU/L (<=2.00)
== END 2024-10-10 13:56 | disposition home or self-care (01) ==
LOC: HO.LAB 13:55
PROVIDERS: PCP Nurse Practitioner Family; Visit Provider Nurse Practitioner Family
DX: E05.90 Thyrotoxicosis, unspecified without thyrotoxic crisis or storm (principal)
CPT/HCPCS: 36415; 83520

== ENCOUNTER 2024-10-13 10:06 | Outpatient (AMB) | payer OTHER, SELFPAY ==
--- NOTE | 2024-10-13 10:08 | A.OFFPC_ITS ---
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: No Is last menstrual period known: Yes Last menstrual period: 10/06/24 Post menopausal: No Patient : No Allergies apple Allergy (Severe, Verified 10/13/24 10:32) hives fluconazole Allergy (Severe, Verified 10/13/24 10:32) hives Medication List - Last Reconciled 10/13/24 by Darwin Shultz CNP hydroxyzine HCl 25 mg PO BID PRN Tobacco use date assessed: 10/13/24 Dental Screening Dental Screen Date: 10/13/24 Did you have a dental visit in the last 12 months?: No Did you have a dental problem in the last 6 months where you did not have access to dental care?: No Was dental information given to patient?: Patient has dentist HPI HPI Comments History of Present Illness Details 28-year-old female presents for an exten ded physical exam. She admits to taking hydroxyzine as prescribed without adverse reactions. Acute issue(s) - She notes severe fatigue for the past 6 months, symptoms progressively getting worse. She is anxious and has maintaining sleeping at night. She also reports being depressed due to stressful family situations. She is followed by a therapist weekly. - She reports rash to right arm with int ermittent itching for the past couple of months. Past Medical History - Iron-deficiency anemia, myopia, anxiet y, depression, dextroscoliosis of thoracic spine, and pulmonary embolism Social History - Nonsmoker. Does not vape. Does not dri nk alcohol. Denies recreational drug use - Has been making healthy dietary choice s. Active but does not exercise. She has difficulty maintaining sleep, sleeps an average of 6-7 hours nightly Health maintenance - Last eye exam was a year ago at [facility]. Referred to a new pan pusher as requested - Last dental visit was a couple years a go. She has a dental appointment next Wednesday; encouraged to follow up as planned - Last Tdap was on 01/18/2024 - Has not been vaccinated for the flu th is season; declines vaccination - Last pap smear test last at [facility] women's health care nurse practitioner: normal. She is not due in 5 years. Record not available [facility] Medical History Pulmonary embolism Tiredness Stiffness of right knee Immunization series complete Anal fissure Bloody stools Hemorrhoids Surgical History History of excision of pilonidal cyst History of wisdom tooth extraction History of removal of cyst H/O heart surgery Family History Father Asthma Allergies Mother Anemia Hypertension Maternal Grandmother Hypertension Multiple myeloma Paternal Grandfather Hypertension Prostate cancer Paternal Grandmother Chronic mental illness Other Mental health disorder Social History (Updated 08/31/24 @ 13:06 by Radha Luna CMA) Housing: House Alcohol intake: current Alcohol intake frequency: holidays/special occasions only Alcohol type: beer Patient Tobacco Use Status: Never used Tobacco e-Cigarette/Vaping Use: Never Used Second Hand Smoke Exposure: No service: No Current occupational status: employed 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 1. Little interest or pleasure in doing things: not at all 2. Feeling down, depressed, or hopeless: several days 3. Trouble falling or staying asleep, or sleeping too much: nearly every day 4. Feeling tired or having little energy: nearly every day 5. Poor appetite or overeating: several days 6. Feeling bad about yourself - or that you are a failure or have let yourself or your family down: not at all 7. Trouble concentrating on things, such as reading the newspaper or watching television: not at all 8. Moving or speaking so slowly that other people could have noticed. Or the opposite - being so fidgety or restless that you have been moving around a lot more than usual: not at all 9. Thoughts that you would be better off or of hurting yourself in some way: not at all Total score: 8 Depression Screening Interpretation: Positive Depression Screening Follow-up: Existing condition and In treatment Depression Screening Done: Yes 43572 - PHQ-9 Billing: Yes Source: Developed by Drs. Anders Lynn, Tahmina Crook, Juanjose Osborne and colleagues, with an educational negin from [employer]. Thrive Questionnaire Date Thrive assessed: 10/13/24 I am a: Patient What is your living situation today?: I have a steady place to live Within the past 12 months, did the food you bought not last and you didn't have the money to get more?: Never true Within the past 12 months, did you worry whether your food would run out before you got money to buy more?: Never true Do you have trouble paying for medicines?: No Do you have trouble getting transportation to medical appointments?: No Do you have trouble paying your heating and electricity bill?: No Do you have trouble taking care of your child, family member or friend?: No Do you have trouble with day-to-day activities such as bathing, preparing meals, shopping, managing finances, etc.?: No Are you currently unemployed and looking for a job?: No Are you interested in more education?: No Please select the resources that you would like help with: None Currently or been in a relationship where the following occur: I choose not to answer THRIVE Score: 0 AUDIT C Alcohol Use Questionnaire (AUDIT-C) 1. How often do you have a drink containing alcohol?: Never 3. How often do you have six or more drinks on one occasion?: Never Total Score: 0 ALEA-7 AMB Questionnaire ALEA-7 Date ALEA - 7 assessed: 10/13/24 Feeling nervous, anxious, or on edge: 3 = Nearly every day Not being able to stop or control worryin = More than half the days Worrying too much about different things: 2 = More than half the days Trouble relaxin = Several days Being so restless that it is hard to sit still: 1 = Several days Becoming easily annoyed or irritable: 1 = Several days Feeling afraid as if something awful might happen: 0 = Not at all Total ALEA-7 score (0-4 normal; 5-9 mild; 10-14 moderate; 15-21 severe): 10 Source: Developed by Drs. Anders Lynn, Tahmina Crook, Juanjose Osborne and colleagues, with an educational negin from [employer]. Review of Systems Const Details: Denies chills, Denies fatigue, Denies fever(s), Denies headache(s) and Denies weakness HEENT Denies change in vision, Denies dizziness, Denies headache(s), Denies hearing loss, Denies nasal congestion, Denies sinus pain, Denies sinus pressure and Denies sore throat Card Denies chest pain, Denies lightheadedness, Denies dyspnea and Denies other (palpitations) Resp Denies cough, Denies dyspnea and Denies wheezing GI Denies abdominal pain, Denies melena, Denies hematochezia, Denies change in bowel habits, Denies dyspepsia and Denies nausea Denies hematuria and Denies dysuria Musc Denies abnormal gait, Denies myalgias, Denies arthralgias, Denies numbness and Denies tingling Skin/Breast Reports rash, Denies unusual bruising and Denies wounds Neuro Denies abnormal gait, Denies dizziness, Denies headache(s), Denies memory loss, Denies numbness, Denies Sensory deficit (Neuro), Denies tingling and Denies weakness Psych Reports anxiety, Reports depression and Denies memory loss Endo Denies cold intolerance, Denies fatigue, Denies heat intolerance, Denies polydipsia and Denies polyuria Armin/Lymph Denies easy bleeding and Denies easy bruising Aller/Immun Denies wheezing Physical exam (Primary Care) Vital Signs: Last Vital Signs Temp 97.6 F 10/13/24 10:17 Pulse 98 10/13/24 10:17 Resp 16 10/13/24 10:17 BP 104/61 10/13/24 10:17 Pulse Ox 100 10/13/24 10:17 Oxygen Delivery Method Room Air 10/13/24 10:17 BMI result Body Mass Index 28.8 Tobacco/Smoking Status: Tobacco use Status Tobacco use date assessed 10/13/24 10/13/24 10:23 Patient Tobacco Use Status Never used Tobacco 10/13/24 10:10 e-Cigarette/Vaping Use Never Used 10/13/24 10:10 PHQ-9: PHQ-9 Score PHQ-9: Total score 8 10/13/24 10:36 Depression Screening Interpretation: Positive Depression Screening Follow-up: Existing condition and In treatment Thrive Assessment: Date of Thrive Assessment Date Thrive assessed 10/13/24 10/13/24 10:23 Currently or been in a relationship where the following occur: I choose not to answer Const Other: General: no acute distress, well developed, alert and awake Nutritional Appearance: well nourished Orientation/consciousness: patient oriented x3 HENMT Head: Yes normocephalic and Yes atraumatic Ears: hearing grossly normal bilaterally and TM's normal bilaterally General nose exam: Normal external nose present and Normal nares present Mouth: Normal oral and palatal mucosa present and moist mucous membranes Teeth and gingiva: dentition normal Throat: Yes oropharynx normal Eyes Pupils: Equal, round and reactive pupils present and Pupil accommodation reflex normal EOM: EOMs intact bilaterally Neck Neck: Yes normal visual inspection, Yes no lymphadenopathy and Yes trachea midline Thyroid: Thyroid normal Carotids: no bruits Lymphatic: no lymphadenopathy noted Chest Chest palpation & inspection: normal inspection of the chest Resp Effort & Inspection: normal respiratory effort Auscultation: clear to auscultation bilaterally Cardio Rate: regular rate Rhythm: regular rhythm Heart sounds: S1 normal heart sound present, S2 normal heart sound present, no gallops, no murmurs and no rubs Bruits: no abdominal aortic bruits and no carotid bruits GI Palpation (GI): No Abdominal aortic bruit present, Soft to palpation, nontender, No hepatosplenomegaly present and No Rebound tenderness present Auscultation: normal bowel sounds General: Yes no CVA tenderness Back/Spine/Pelvis Back: no CVA tenderness Cervical Spine: cervical ROM normal and No Cervical spine tenderness Thoracic/Lumbar Spine: thoracic spine dextroscoliosis with normal ROM, lumbar spine ROM normal, No pain with thoraco-lumbar ROM, No thoracic spinal tenderness and No lumbar spinal tenderness Skin General: warm and dry. Normal skin color. Normal skin turgor Lesions: no lesions Rashes: Small oval-shaped, slightly red and slightly raised rash to the left arm proximal to the antecubital fossa, consistent with candidiasis Trauma: no lacerations or abrasions Wounds: no wounds Nails: normal Neuro General: patient oriented x3, gait normal and CN's II-XI intact bilaterally Cranial nerves: Yes Equal, round and reactive pupils present Cognition (Neuro): normal cognition Gait exam (Neuro): Normal gait present Motor exam (neuro): 5/5 motor strength present throughout Sensory Exam: No Sensory deficit (Neuro) Deep tendon reflexes (DTR's): Right patellar reflex intensity grade: 2+ and Left patellar reflex intensity grade: 2+ Extrem General: Yes normal to inspection, No edema and No calf tenderness Psych Appearance: grossly normal Affect: normal affect Attitude: cooperative Thought process: Normal thought process present Coding Level of Care Code Est Pt Level 3 (50704) Est Pt Prev Care 18-39y(76810) Diagnoses Normal physical examination, routine Z00.00 Depression with anxiety F41.8 Fatigue R53.83 Rash R21 Low TSH level R79.89 Myopia H52.10 Iron deficiency anemia D50.9 Additional Codes PHQ-9 - 70637 - PHQ-9 Billing: Yes ([id number]) Assessment & Plan Assessment & Plan (1) Normal physical examination, routine: Code(s): Z00.00 - Encounter for general adult medical examination without abnormal findings Category: Medical Plan: No significant functional limitation noted. Healthy diet and routine exercise encouraged. Follow-up in 2 weeks for fatigue, anxiety, and depression. Return sooner with symptoms or concerns. Verbalized understanding and agreed with treatment plan. (2) Depression with anxiety: Code(s): F41.8 - Other specified anxiety disorders Category: Medical Plan: She has been experiencing severe fatigue for the past 6 months, symptoms progressively getting worse. She is anxious and has maintaining sleeping at night. She also reports being depressed due to stressful family situations. No SI/HI. She is followed by a therapist weekly. PHQ-9 and ALEA-7 scores revealed mild depression and moderate anxiety respectively. Bupropion 150 mg daily ordered; advised to take as prescribed. Instructed on the risks, benefits, and potential adverse reactions of the medication. Routine exercise encouraged. Follow-up in 2 weeks or sooner with worsening or new symptoms. Verbalized understanding and agreed with treatment plan. (3) Fatigue: Code(s): R53.83 - Other fatigue Category: Medical Plan: Plan as above. (4) Rash: Code(s): R21 - Rash and other nonspecific skin eruption Category: Medical Plan: Presents with rash to right arm with intermittent itching for the past couple of months. Small oval-shaped, slightly red and slightly raised rash to the left arm proximal to the antecubital fossa, consistent with candidiasis. Advised to apply [id number] hydrocortisone cream twice daily as needed. Follow-up with worsening or new signs and symptoms. Verbalized understanding and agreed with the treatment plan. (5) Low TSH level: Code(s): R79.89 - Other specified abnormal findings of blood chemistry Category: Medical Plan: TSH was significantly low twice recently, free T4 and T3 are normal. Thyrotropin receptor antibody pending. She has an appointment with [facility] end[facility]ology next month; advised to follow-up as planned. Verbalized understanding and agreed with treatment plan. (6) Myopia: Code(s): H52.10 - Myopia, unspecified eye Category: Medical Plan: She wears prescription glasses. Last eye exam was a year ago at [facility]. Referred to a new pan pusher as requested. (7) Iron deficiency anemia: Code(s): D50.9 - Iron deficiency anemia, unspecified Category: Medical Plan: Followed by [facility] oncology/hematology. Orders: Referrals Ophthalmology Referral H52.10 - Myopia, unspecified eye Medications: New bupropion HCl XL 150 mg PO QAM 30 days 30 tabs 3RF
[2024-10-13 10:17] VITALS: BP 104/61; PULSE 98; RESP 16; TEMP 36.4; O2SAT 100; BMI 28.8
== END 2024-10-13 10:54 | disposition home or self-care (01) ==
LOC: HO.HMCFM 10:07
PROVIDERS: PCP Nurse Practitioner Family; Visit Provider Nurse Practitioner Family
DX: Z00.00 Encounter for general adult medical examination without abnormal findings (principal); F41.8 Other specified anxiety disorders; R53.83 Other fatigue; R21 Rash and other nonspecific skin eruption; R79.89 Other specified abnormal findings of blood chemistry; D50.9 Iron deficiency anemia, unspecified; H52.10 Myopia, unspecified eye

== ENCOUNTER → 2024-10-13 10:06 | Outpatient (BNVA) | payer OTHER, SELFPAY | PROVIDERS: PCP Nurse Practitioner Family; Visit Provider Nurse Practitioner Family | DX: Z00.01 Encounter for general adult medical examination with abnormal findings (principal); F41.8 Other specified anxiety disorders; R53.83 Other fatigue; R21 Rash and other nonspecific skin eruption; R79.89 Other specified abnormal findings of blood chemistry; H52.10 Myopia, unspecified eye; D50.9 Iron deficiency anemia, unspecified | CPT/HCPCS: 96127; 99212; 99395 ==

== ENCOUNTER 2024-10-26 14:53 | Outpatient (AMB) | payer OTHER, SELFPAY ==
--- NOTE | 2024-10-26 15:02 | MHC.PC.OV ---
Vital Signs 10/26/24 15:04 Height 5 ft 6 in Weight 180 lb 6 oz BMI 29.1 BP 110/68 Blood Pressure Location Rt brachial Position Sitting Respiration 12 Pulse 76 Pulse Source Pulse Oximeter Temp 97.8 F Temp Source Oral Pulse Oximetry (%) 100 Oxygen Delivery Method Room Air Intake Visit Reasons: Body Rash Intake Note: Rash left arm Allergies apple Allergy (Severe, Verified 10/26/24 15:03) hives fluconazole Allergy (Severe, Verified 10/26/24 15:03) hives Medication List - Last Reconciled 10/26/24 by Cristy Parikh PA-C hydroxyzine HCl 25 mg PO BID PRN Tobacco use date assessed: 10/26/24 Dental Screening Dental Screen Date: 10/13/24 HPI Body Rash HPI Details Patient is a 28-year-old female who presents today for an acute problem visit regarding a left arm rash. She normally follows with Dr. Shultz. Derm: She says that she has had a rash on her left anterior arm for the last couple of months. Recently it felt like it got worse. She states that it is itchy at times, red and somewhat raised. It was nowhere else on her body. She denies any new products but states that she is very sensitive to medications. No recent travel. No fevers or chills. She tried clotrimazole cream a couple times but that did not seem to improve it. Heme/onc: She sees hematology for PE. She has not needed off of blood thinners since Apr 2024. States that the PE has resolved and she does have follow up scheduled. It was felt to be induced from OCPs. General: Reports feeling fatigued. States that she recently had labs with PCP and malignant came back abnormal was her thyroid. Endo: Scheduled to see endocrinology on 11/07 for a low TSH. Denies any palpitations or dizziness. No weight loss. Denies any swelling in the neck. She has been feeling tired and does have some anxiety unsure if related. [facility] Medical History Pulmonary embolism Tiredness Stiffness of right knee Immunization series complete Anal fissure Bloody stools Hemorrhoids Surgical History History of excision of pilonidal cyst History of wisdom tooth extraction History of removal of cyst H/O heart surgery Family History Father Asthma Allergies Mother Anemia Hypertension Maternal Grandmother Hypertension Multiple myeloma Paternal Grandfather Hypertension Prostate cancer Paternal Grandmother Chronic mental illness Other Mental health disorder Social History (Updated 08/31/24 @ 13:06 by Radha Luna CMA) Housing: House Alcohol intake: current Alcohol intake frequency: holidays/special occasions only Alcohol type: beer Patient Tobacco Use Status: Never used Tobacco e-Cigarette/Vaping Use: Never Used Second Hand Smoke Exposure: No service: No Current occupational status: employed 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 Cognitive needs: No Hearing needs: No Vision needs: No Questionnaire Thrive Questionnaire Date Thrive assessed: 08/31/24 I am a: Patient What is your living situation today?: I have a steady place to live Within the past 12 months, did the food you bought not last and you didn't have the money to get more?: Never true Within the past 12 months, did you worry whether your food would run out before you got money to buy more?: Never true Do you have trouble paying for medicines?: No Do you have trouble getting transportation to medical appointments?: No Do you have trouble paying your heating and electricity bill?: No Do you have trouble taking care of your child, family member or friend?: No Do you have trouble with day-to-day activities such as bathing, preparing meals, shopping, managing finances, etc.?: No Are you currently unemployed and looking for a job?: No Are you interested in more education?: No Please select the resources that you would like help with: None Currently or been in a relationship where the following occur: I choose not to answer THRIVE Score: 0 AUDIT C Alcohol Use Questionnaire (AUDIT-C) 1. How often do you have a drink containing alcohol?: Monthly or less (once a year) 2. How many drinks containing alcohol do you have on a typical day when you are drinking?: 1 or 2 3. How often do you have six or more drinks on one occasion?: Never Total Score: 1 ALEA-7 AMB Questionnaire ALEA-7 Date ALEA - 7 assessed: 10/13/24 Source: Developed by Drs. Anders L. LeahTahmina arteaga, Juanjose Osborne and colleagues, with an educational negin from [employer]. Physical exam (Primary Care) Tobacco/Smoking Status: Tobacco use Status Tobacco use date assessed 10/13/24 10/13/24 10:23 Patient Tobacco Use Status Never used Tobacco 10/13/24 10:10 e-Cigarette/Vaping Use Never Used 10/13/24 10:10 Thrive Assessment: Date of Thrive Assessment Date Thrive assessed 08/31/24 10/26/24 13:24 Currently or been in a relationship where the following occur: I choose not to answer Const Orientation/consciousness: patient oriented x3 HENMT Ears: hearing grossly normal bilaterally Neck Thyroid: diffusely enlarged Lymphatic: no lymphadenopathy noted Resp Auscultation: clear to auscultation bilaterally Cardio Rate: regular rate Rhythm: regular rhythm Heart sounds: S1 normal heart sound present and S2 normal heart sound present GI Inspection: Yes normal to inspection Palpation (GI): Soft to palpation and Other GI palpation findings present (nontender, no cva tenderness) Auscultation: normoactive bowel sounds Rectal Exam - Female: deferred Skin Other: There is an erythematous, slightly raised, oval rash noted on the left antecubital fossa. There is somewhat of the center of clearing. Neuro General: patient oriented x3, gait normal and no focal motor deficits Coding Level of Care Code Est Pt Level 4 (71273) Complex EM visit Add On G2211 Diagnoses Rash R21 Tiredness R53.83 Low TSH level R79.89 Assessment & Plan Assessment & Plan (1) Rash: Code(s): R21 - Rash and other nonspecific skin eruption Category: Medical Plan: We will try clotrimazole/betamethasone. Follow up arranged to be reassessed. I did refer to derm. (2) Tiredness: Code(s): R53.83 - Other fatigue Category: Medical Plan: Reviewed labs today with patient. She was seen by her PCP for this. Discussed this could be related to her thyroid issues. (3) Low TSH level: Code(s): R79.89 - Other specified abnormal findings of blood chemistry Category: Medical Plan: Has follow up arranged. BP and pulse WNL. ? Thyroid enlargement. No specific mass noted Orders: Referrals Allergy & Immunology Referral T50.715A - Adverse effect of unspecified drugs, medicaments and biological substances, initial encounter Dermatology Referral R21 - Rash and other nonspecific skin eruption Medications: New clotrimazole-betamethasone 1-0.05 % 1 appl topical BID 4 weeks 45 grams 0RF
[2024-10-26 15:04] VITALS: BP 110/68; PULSE 76; RESP 12; TEMP 36.6; O2SAT 100; BMI 29.1
--- OUTSIDE RECORDS SUMMARY | 2024-10-26 17:30 | XMS_ITS | Encounter Summary ---
Author Organization [facility] Address [address] [place] [id number] Phone Care Team Providers Care Wood Casket Maker Name Role Phone Lili Bliss MD Primary Care Provider Unavailabl e Encounter Details Date Type Department Care Team (Late st Contact Info) Description 12/04/2009 Documentation [facility] [place] Family Medicine [address] [place] [address] Family Medicine, Physician [address] [place], [place] [id number] Social History Tobacco Use Types Packs/Day Years [...] on filedocumented in this encounter Care Teams Wood Casket Maker Relationship Specialty Start Date End Date Lili Bliss MD PCP - General 02/26/17 documented as of this encounter
--- OUTSIDE RECORDS SUMMARY | 2024-10-26 17:30 | XMS_ITS | Clinical Summary ---
Author Organization [employer] Address [address] [place] [address] [address] [place] [address] Care Team Providers Care Telecommunications Line Installer Name Role Phone Unavailable Primary Care Provider [...]
--- OUTSIDE RECORDS SUMMARY | 2024-10-26 17:30 | XMS_ITS | Encounter Summary ---
Author Organization [facility] Address [address] [place] [phone] Phone Care Team Providers Care Recreation Therapy Aides Teacher Name Role Phone Lili Bliss MD Primary Care Provider Unavailabl e Encounter Details Date Type Department Care Team (Late st Contact Info) Description 03/04/2017 Documentation [facility] [place] Family Medicine [address] [place] [address] Family Medicine, Physician [address] [place] [address] Social History Tobacco Use Types Packs/Day Years [...] on filedocumented in this encounter Care Teams Recreation Therapy Aides Teacher Relationship Specialty Start Date End Date Lili Bliss MD PCP - General 02/26/17 documented as of this encounter
--- OUTSIDE RECORDS SUMMARY | 2024-10-26 17:30 | XMS_ITS | Encounter Summary ---
Author Organization [facility] Address [address] [place] [phone] Phone Care Team Providers Care Mixer Driver Name Role Phone Lili Bliss MD Primary Care Provider Unavailabl e Encounter Details Date Type Department Care Team (Late st Contact Info) Description 03/04/2017 Documentation [facility] [place] [place] [address] [place] [address] Family Medicine, Physician [address] [place] [address] Social History Tobacco Use Types Packs/Day Years [...] on filedocumented in this encounter Care Teams Mixer Driver Relationship Specialty Start Date End Date Lili Bliss MD PCP - General 02/26/17 documented as of this encounter
--- OUTSIDE RECORDS SUMMARY | 2024-10-26 17:30 | XMS_ITS | Clinical Summary ---
Author Organization [facility] Address [address] [place] [address] Phone Care Team Providers Care Carpenter Assistant Installer Name Role Phone Lili Bliss MD Primary [...] of Deafness, No family history of *Sudden /[place] under 55, No family history of *Thrombophilia, [...] complete this topic Procedures * Due to [place] [employer] law, this organization might not be sharing sensitive test results. Procedure Name Priority Date/Time Associated Diagnosis Comments CHLAMYDIA AND GONORRHEA, AMPLIFIED Routine 07/22/2015 1:17 PM EST from Last 3 Months or Most Recently Relevant to Health Maintenance Results * Due to [place] [employer] law, this organization might not be sharing sensitive test results. * Chlamydia and Gonorrhoea, Amplified (07/22/2015 1:17 PM EST) URINE CHLAMYDIA AMP PROBE NEGATIVE [facility] Comment: No Chlamydia Trachomatis RNA detected in this patient's sample (REFERENCE RANGE/NORMAL VALUE: NOT DETECTED) URINE GC AMP PROBE NEGATIVE [facility] Comment: No Neisseria Gonorrhoeae RNA detected in this patient's sample (REFERENCE RANGE/NORMAL VALUE: NOT DETECTED) NOTE: This test uses blade boner-mediated amplification method to detect rRNA from C.Trachomatis [...] without risk of sexual abuse. Consult the [facility] [place] if needed. Contact phone number . Therapeutic failure or success cannot be determined with the Aptima Combo2 assay since nucleic acid may persist following appropriate antimicrobial therapy. The Centers for Disease Control and Prevention (CDC) recommends confirmatory retesting using culture or a different nucleic acid amplification test when positive results occur, if indicated. Testing performed or reported by [facility], a Service of [facility], [address] [place] [address] CLIA ??[id number] Joey Coles MD, PhD, Aeronautical Engineering Officer 07/22/2015 1:17 PM EST Narrative [facility] - 07/22/2015 1:17 PM EST URINE CHLAMYDIA GC AMP PROBE us Lili Bliss MD LAB MICROBIOLOGY - GENERAL ORDER HEIDI Final Result [facility] [address] [place], [place] [id number], from Last 3 Months or Most Recently Relevant to Health Maintenance Care Teams Carpenter Assistant Installer Relationship Specialty Start Date End Date Lili Bliss MD PCP - General 02/26/17
--- OUTSIDE RECORDS SUMMARY | 2024-10-26 17:30 | XMS_ITS | Encounter Summary ---
Author Organization [facility] Address [address] [place] [address] Phone Care Team Providers Care School Occupational Therapist Name Role Phone Lili Bliss MD Primary Care Provider Unavailabl e Encounter Details Date Type Department Care Team (Late st Contact Info) Description 12/23/2015 Documentation [facility] [place] [address] [place] [address] Family Medicine, Physician [address] [place], [place] [id number] Social History Tobacco Use Types Packs/Day Years [...] on filedocumented in this encounter Care Teams School Occupational Therapist Relationship Specialty Start Date End Date Lili Bliss MD PCP - General 02/26/17 documented as of this encounter
--- OUTSIDE RECORDS SUMMARY | 2024-10-26 17:30 | XMS_ITS | Encounter Summary ---
Author Organization [facility] Address [address] [place] [address] [facility] [place] [place] [address] Care Team Providers Care Customer Assistance Associate Name Role Phone Unavailable Primary Care Provider Unavailabl e Encounter Details Date Type Department Care Team (Latest Contact Info) Description 08/09/2018 Abstract [facility] CONVERSIONS Dental, Provider, DDS Social History Tobacco [...]
--- OUTSIDE RECORDS SUMMARY | 2024-10-26 17:30 | XMS_ITS | Encounter Summary ---
Author Organization [facility] Address [address] [place] [address] Phone Care Team Providers Care Toe Pounder Name Role Phone Lili Bliss MD Primary Care Provider Unavailabl e Encounter Details Date Type Department Care Team (Late st Contact Info) Description 02/02/2014 Documentation [facility] [place] [address] [place] [address] Family Medicine, Physician [address] [place], [place] [phone] Social History Tobacco Use Types Packs/Day Years [...] on filedocumented in this encounter Care Teams Toe Pounder Relationship Specialty Start Date End Date Lili Bliss MD PCP - General 02/26/17 documented as of this encounter
--- OUTSIDE RECORDS SUMMARY | 2024-10-26 17:30 | XMS_ITS | Encounter Summary ---
Author Organization [facility] Address [address] [place] [address] Phone Care Team Providers Care Dramatic Arts Historian Name Role Phone Lili Bliss MD Primary Care Provider Unavailabl e Encounter Details Date Type Department Care Team (Late st Contact Info) Description 10/28/2009 Documentation [facility] [place] [address] [place] [address] Family Medicine, Physician [address] [place], [place] [phone] Social History Tobacco Use Types Packs/Day Years [...] on filedocumented in this encounter Care Teams Dramatic Arts Historian Relationship Specialty Start Date End Date Lili Bliss MD PCP - General 02/26/17 documented as of this encounter
--- OUTSIDE RECORDS SUMMARY | 2024-10-26 17:30 | XMS_ITS | Encounter Summary ---
Author Organization [facility] Address [address] [place] [address] Phone Care Team Providers Care Public Affairs Officer Name Role Phone Lili Bliss MD Primary Care Provider Unavailabl e Encounter Details Date Type Department Care Team (Late st Contact Info) Description 06/22/2010 Documentation [facility] [place] [address] [place] [address] Family Medicine, Physician [address] [place], [place] [phone] Social History Tobacco Use Types Packs/Day Years [...] on filedocumented in this encounter Care Teams Public Affairs Officer Relationship Specialty Start Date End Date Lili Bliss MD PCP - General 02/26/17 documented as of this encounter
--- OUTSIDE RECORDS SUMMARY | 2024-10-26 17:30 | XMS_ITS | Encounter Summary ---
Author Organization [facility] Address [address] [place] [address] Phone Care Team Providers Care Last Cleaner Name Role Phone Lili Bliss MD Primary Care Provider Unavailabl e Encounter Details Date Type Department Care Team (Late st Contact Info) Description 06/22/2010 Documentation [facility] [place] [address] [place] [address] Family Medicine, Physician [address] [place], [place] [phone] Social History Tobacco Use Types Packs/Day Years [...] on filedocumented in this encounter Care Teams Last Cleaner Relationship Specialty Start Date End Date Lili Bliss MD PCP - General 02/26/17 documented as of this encounter
--- OUTSIDE RECORDS SUMMARY | 2024-10-26 17:31 | XMS_ITS | Encounter Summary ---
Author Organization [facility] Address [address] [place] [address] Phone Care Team Providers Care Biomedical Engineering Professor Name Role Phone Lili Bliss MD Primary Care Provider Unavailabl e Encounter Details Date Type Department Care Team (Late st Contact Info) Description 03/04/2017 Documentation [facility] [place] [address] [place] [address] Family Medicine, Physician [address] [place] [address] Social History Tobacco Use Types Packs/Day Years [...] on filedocumented in this encounter Care Teams Biomedical Engineering Professor Relationship Specialty Start Date End Date Lili Bliss MD PCP - General 02/26/17 documented as of this encounter
--- OUTSIDE RECORDS SUMMARY | 2024-10-26 17:31 | XMS_ITS | Encounter Summary ---
Author Organization [facility] Address [address] [place] [address] Phone Care Team Providers Care Video Tape Transferrer Name Role Phone Lili Bliss MD Primary Care Provider Unavailabl e Encounter Details Date Type Department Care Team (Late st Contact Info) Description 03/04/2017 Conversion Encounter [facility] - [address] [address] Social History Tobacco Use Types Packs/Day Years [...] on filedocumented in this encounter Care Teams Video Tape Transferrer Relationship Specialty Start Date End Date Lili Bliss MD PCP - General 02/26/17 documented as of this encounter"
--- OUTSIDE RECORDS SUMMARY | 2024-10-26 17:31 | XMS_ITS | Encounter Summary ---
Author Organization [facility] Address [address] [place] [address] Phone Care Team Providers Care Coffee Farmer Name Role Phone Lili Bliss MD Primary Care Provider Unavailabl e Encounter Details Date Type Department Care Team (Late st Contact Info) Description 02/11/2017 Documentation [facility] [place] [address] [place] [address] Family Medicine, Physician [address] [place] [address] Social History Tobacco Use Types Packs/Day Years [...] on filedocumented in this encounter Care Teams Coffee Farmer Relationship Specialty Start Date End Date Lili Bliss MD PCP - General 02/26/17 documented as of this encounter
== END 2024-10-26 15:26 | disposition home or self-care (01) ==
LOC: HO.HMCFM 14:54
PROVIDERS: PCP Physician Assistant; Visit Provider Physician Assistant
DX: R21 Rash and other nonspecific skin eruption (principal); R53.83 Other fatigue; R79.89 Other specified abnormal findings of blood chemistry

== ENCOUNTER → 2024-10-26 14:53 | Outpatient (BNVA) | payer OTHER, SELFPAY | PROVIDERS: PCP Physician Assistant; Visit Provider Physician Assistant | DX: R21 Rash and other nonspecific skin eruption (principal); R53.83 Other fatigue; R79.89 Other specified abnormal findings of blood chemistry | CPT/HCPCS: 99212 ==

== ENCOUNTER 2024-11-07 15:01 | Outpatient (AMB) | payer OTHER, SELFPAY ==
[2024-11-07 15:02] VITALS: BP 104/70; PULSE 89; O2SAT 96; BMI 28.6
--- NOTE | 2024-11-07 15:02 | A.OFFVIS_ITS ---
Vital Signs 11/07/24 15:02 Height 5 ft 6 in Weight 177 lb 7.554 oz BMI 28.6 BP 104/70 Blood Pressure Location Lt brachial Position Sitting Pulse 89 Pulse Source Pulse Oximeter Pulse Oximetry (%) 96 Oxygen Delivery Method Room Air Intake Visit Reasons: Othr specified abnormal findings of blood chem Intake Note: New patient present today for other specified abnormal findings of blood chemistry. Computer Education Professor Required: No Accompanied by: Child Allergies apple Allergy (Severe, Verified 11/07/24 15:06) hives fluconazole Allergy (Severe, Verified 11/07/24 15:06) hives Medication List - Last Reconciled 11/07/24 by Barbara Dorantes MD clotrimazole-betamethasone 1-0.05 % 1 appl topical BID 4 weeks hydroxyzine HCl 25 mg PO BID PRN HPI Comments Details: 28-year-old female here today for initial evaluation of subclinical hyperthyroidism. 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 Chart review shows that labs from 09/29/2024 showed TSH was low at 0.05, free T4 normal at 1.42. Labs repeated 10/02/2024 again showed low TSH of 0.03, free T4 normal at 1.52. Total T3 also normal at 162. Previously she has had normal thyroid labs in 2022. No preceding viral illness No Contrast exposure Patient currently denies heat or cold intolerance, diarrhea or constipation, palpitation, changes in appearance of eyes or vision changes, tremors, increased diaphoresis or dry skin. ? LMP:10/31/24, periods every month , has IUD , feels periods now lasting more days Some hair loss post , 7 months post , improving now No weight loss , weight stable Does complain of anxiety Tiredness and low energy , does wake up in the middle of the night Patient denies any difficulty swallowing, pain on swallowing or voice changes or difficulty breathing. Patient denies any history of childhood neck radiation. Denies having ever used lithium, amiodarone or biotin supplements. Patient denies any family history of thyroid cancer . Maternal cousin has thyroid disease. 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[employer] 7 month old baby, plus 5 year old 2 pregnancies, 2 children No smoking No alcohol use Physical exam General: sitting comfortably in no acute distress HEENT: normocephalic/atraumatic,moist oral mucosa, no exophthalmos, no lid lag Neck: supple, thyromegaly noted Cardiac: normal heart sounds Pulm: normal breath sounds B/L, no added breath sounds Abd: not distended, no tenderness Extremities: no edema, no signs of myxedema, mild tremor Neuro: AAO x3, Speech: normal, no facial droop, moving all 4 extremities Laboratory Tests 04/16/23 09/29/24 10/02/24 11:20 13:25 13:49 TSH 0.51 0.07 L 0.03 L Free T4 1.42 1.52 Total T3 162 Laboratory Tests 10/10/24 14:14 TSH Receptor Ab 1.71 [facility] Medical History (Updated 11/07/24 @ 15:28 by Barbara Dorantes MD) Subclinical hyperthyroidism Pulmonary embolism Tiredness Stiffness of right knee Immunization series complete Anal fissure Bloody stools Hemorrhoids Surgical History History of excision of pilonidal cyst History of wisdom tooth extraction History of removal of cyst H/O heart surgery Family History Father Asthma Allergies Mother Anemia Hypertension Maternal Grandmother Hypertension Multiple myeloma Paternal Grandfather Hypertension Prostate cancer Paternal Grandmother Chronic mental illness Other Mental health disorder Social History Housing: House Alcohol intake: current Alcohol intake frequency: holidays/special occasions only Alcohol type: beer Patient Tobacco Use Status: Never used Tobacco e-Cigarette/Vaping Use: Never Used Second Hand Smoke Exposure: No service: No Current occupational status: employed 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 Cognitive needs: No Hearing needs: No Vision needs: No Physical Exam Vital Signs: Last Vital Signs Pulse 89 11/07/24 15:02 BP 104/70 11/07/24 15:02 Pulse Ox 96 11/07/24 15:02 Oxygen Delivery Method Room Air 11/07/24 15:02 BMI result Body Mass Index 28.6 Assessment & Plan Assessment & Plan (1) Low TSH level: Code(s): R79.89 - Other specified abnormal findings of blood chemistry Category: Medical Plan: See below (2) Subclinical hyperthyroidism: Code(s): E05.90 - Thyrotoxicosis, unspecified without thyrotoxic crisis or storm Category: Medical Plan: 28-year-old female coming in today for initial evaluation of subclinical hyperthyroidism.Chart review shows that labs from 09/29/2024 showed TSH was low at 0.05, free T4 normal at 1.42. Labs repeated 10/02/2024 again showed low TSH of 0.03, free T4 normal at 1.52. Total T3 also normal at 162. Previously she has had normal thyroid labs in 2022. She does not have any preceding illness, suggest thyroiditis, no history of sore throat. She does have thyromegaly on exam to suggest possible underlying autoimmune thyroid disease though TSH receptor antibodies were negative from September 2024. We will also check TSI antibodies. As well as TPO antibodies. Given TSH was less than 0.1, and patie nt does have symptoms of fatigue that are very bothersome to her, she could potentially qualify for treatment. Though fatigue could be attributed to disturbed sleep, she is 7 months . She does have a mild tremor on exam. Otherwise vital signs were normal. At this point I will repeat her thyroid function tests. Given thyromegaly, we will also have her do an ultrasound of the thyroid as well as a thyroid uptake and scan. She is done with her 7-month-old, no plans for , no plans for . She has an IUD. Plan: -ordered TSH, free T4, total T3, TSI and TPO antibodies to be done now -ordered ultrasound of the thyroid -ordered thyroid uptake and scan -follow up in 6 weeks to discuss results Plan I spent 45 minutes in reviewing the record, seeing the patient and documenting in the medical record. Orders: Orders Thyroid Stimulating Hormone Today R79.89 - Other specified abnormal findings of blood chemistry Thyroid Peroxidase Antibodies Today R79.89 - Other specified abnormal findings of blood chemistry NM thyroid w uptake Today E05.90 - Thyrotoxicosis, unspecified without thyrotoxic crisis or storm US thyroid Today E05.90 - Thyrotoxicosis, unspecified without thyrotoxic crisis or storm Free T4 (Free Thyroxine) Today R79.89 - Other specified abnormal findings of b lood chemistry Triiodothyronine T3 Total Today R79.89 - Other specified abnormal findings of blood chemistry Thyroid Stimulating Immunoglob Today R79.89 - Other specified abnormal findings of blood chemistry Patient Instructions: Do blood work today Do thyroid ultrasound someone will call you to schedule this Do Thyroid uptake and scan someone will call you to schedule this Follow up in 6 weeks Coding Level of Care Code New Pt Level 4 (78701) Diagnoses Low TSH level R79.89 Subclinical hyperthyroidism E05.90 Time Spent (min) 45
--- OUTSIDE RECORDS SUMMARY | 2024-11-07 17:57 | XMS_ITS | Encounter Summary ---
Author Organization [facility] Address [address] [place] [address] Phone Care Team Providers Care Button Tufting Machine Operator Name Role Phone Lili Bliss MD Primary Care Provider Unavailabl e Encounter Details Date Type Department Care Team (Late st Contact Info) Description 06/22/2010 Documentation [facility] [place] Family Medicine [address] [place] [address] Family Medicine, Physician [address] [place], [place] [phone] Social History Tobacco Use Types Packs/Day Years [...] on filedocumented in this encounter Care Teams Button Tufting Machine Operator Relationship Specialty Start Date End Date Lili Bliss MD PCP - General 02/26/17 documented as of this encounter
--- OUTSIDE RECORDS SUMMARY | 2024-11-07 17:57 | XMS_ITS | Clinical Summary ---
Author Organization [employer] Address [address] [place] [address] 7 [place] [address] Care Team Providers Care Finish Filer Name Role Phone Unavailable Primary Care Provider [...]
--- OUTSIDE RECORDS SUMMARY | 2024-11-07 17:57 | XMS_ITS | Clinical Summary ---
Author Organization [facility] Address [address] [place] [address] Phone Care Team Providers Care Meal Packer Name Role Phone Lili Bliss MD Primary [...] of Deafness, No family history of *Sudden /[place] under 55, No family history of *Thrombophilia, [...] complete this topic Procedures * Due to [place] [employer] law, this organization might not be sharing sensitive test results. Procedure Name Priority Date/Time Associated Diagnosis Comments CHLAMYDIA AND GONORRHEA, AMPLIFIED Routine 07/22/2015 1:17 PM EST from Last 3 Months or Most Recently Relevant to Health Maintenance Results * Due to [place] [employer] law, this organization might not be sharing sensitive test results. * Chlamydia and Gonorrhoea, Amplified (07/22/2015 1:17 PM EST) URINE CHLAMYDIA AMP PROBE NEGATIVE [facility] Comment: No Chlamydia Trachomatis RNA detected in this patient's sample (REFERENCE RANGE/NORMAL VALUE: NOT DETECTED) URINE GC AMP PROBE NEGATIVE [facility] Comment: No Neisseria Gonorrhoeae RNA detected in this patient's sample (REFERENCE RANGE/NORMAL VALUE: NOT DETECTED) NOTE: This test uses computer technologist-mediated amplification method to detect rRNA from C.Trachomatis [...] without risk of sexual abuse. Consult the [facility] [place] if needed. Contact phone number . Therapeutic failure or success cannot be determined with the Aptima Combo2 assay since nucleic acid may persist following appropriate antimicrobial therapy. The Centers for Disease Control and Prevention (CDC) recommends confirmatory retesting using culture or a different nucleic acid amplification test when positive results occur, if indicated. Testing performed or reported by [facility], a Service of [facility], [address] [place] [address] CLIA ??[id number] Joey Coles MD, PhD, Art Therapy Certified Supervisor 07/22/2015 1:17 PM EST Narrative [facility] - 07/22/2015 1:17 PM EST URINE CHLAMYDIA GC AMP PROBE us Lili Bliss MD LAB MICROBIOLOGY - GENERAL ORDER HEIDI Final Result [facility] [address] [place], [place] [id number], from Last 3 Months or Most Recently Relevant to Health Maintenance Care Teams Meal Packer Relationship Specialty Start Date End Date Lili Bliss MD PCP - General 02/26/17
--- OUTSIDE RECORDS SUMMARY | 2024-11-07 17:57 | XMS_ITS | Encounter Summary ---
Author Organization [facility] Address [address] [place] [address] Phone Care Team Providers Care Gas Maker Name Role Phone Lili Bliss MD Primary Care Provider Unavailabl e Encounter Details Date Type Department Care Team (Late st Contact Info) Description 03/04/2017 Documentation [facility] [place] Family Medicine [address] [place] [address] Family Medicine, Physician [address] [place] [address] Social History Tobacco Use Types Packs/Day Years [...] on filedocumented in this encounter Care Teams Gas Maker Relationship Specialty Start Date End Date Lili Bliss MD PCP - General 02/26/17 documented as of this encounter
--- OUTSIDE RECORDS SUMMARY | 2024-11-07 17:57 | XMS_ITS | Encounter Summary ---
Author Organization [facility] Address [address] [place] [address] Phone Care Team Providers Care Education Teacher Name Role Phone Lili Bliss MD Primary Care Provider Unavailabl e Encounter Details Date Type Department Care Team (Late st Contact Info) Description 03/04/2017 Documentation [facility] [place] [address] [place] [address] Family Medicine, Physician [address] [place] [address] Social History Tobacco Use Types Packs/Day Years [...] on filedocumented in this encounter Care Teams Education Teacher Relationship Specialty Start Date End Date Lili Bliss MD PCP - General 02/26/17 documented as of this encounter
--- OUTSIDE RECORDS SUMMARY | 2024-11-07 17:57 | XMS_ITS | Encounter Summary ---
Author Organization [facility] Address [address] [place] [address] Phone Care Team Providers Care Sports Information Director Name Role Phone Lili Bliss MD Primary Care Provider Unavailabl e Encounter Details Date Type Department Care Team (Late st Contact Info) Description 12/23/2015 Documentation [facility] [place] [address] [place] [address] Family Medicine, Physician [address] [place], [place] [address] Social History Tobacco Use Types Packs/Day Years [...] on filedocumented in this encounter Care Teams Sports Information Director Relationship Specialty Start Date End Date Lili Bliss MD PCP - General 02/26/17 documented as of this encounter
--- OUTSIDE RECORDS SUMMARY | 2024-11-07 17:57 | XMS_ITS | Encounter Summary ---
Author Organization [facility] Address [address] [place] [address] Phone Care Team Providers Care Lead Supply Worker Name Role Phone Lili Bliss MD Primary Care Provider Unavailabl e Encounter Details Date Type Department Care Team (Late st Contact Info) Description 12/04/2009 Documentation [facility] [place] Family Medicine [address] [place] [address] Family Medicine, Physician [address] [place], [place] [phone] Social History Tobacco Use Types Packs/Day Years [...] on filedocumented in this encounter Care Teams Lead Supply Worker Relationship Specialty Start Date End Date Lili Bliss MD PCP - General 02/26/17 documented as of this encounter
--- OUTSIDE RECORDS SUMMARY | 2024-11-07 17:57 | XMS_ITS | Encounter Summary ---
Author Organization [facility] Address [address] [place] [address] [facility] [place] [address] Care Team Providers Care Quality Intern Name Role Phone Unavailable Primary Care Provider Unavailabl e Encounter Details Date Type Department Care Team (Latest Contact Info) Description 08/09/2018 Abstract [facility] CONVERSIONS Dental, Provider, DDS Social History [...]
--- OUTSIDE RECORDS SUMMARY | 2024-11-07 17:57 | XMS_ITS | Encounter Summary ---
Author Organization [facility] Address [address] [place] [address] Phone Care Team Providers Care Crop Farmers Name Role Phone Lili Bliss MD Primary Care Provider Unavailabl e Encounter Details Date Type Department Care Team (Late st Contact Info) Description 02/02/2014 Documentation [facility] [place] [address] [place] [address] Family Medicine, Physician [address] [place], [place] [address] Social History Tobacco Use Types Packs/Day Years [...] on filedocumented in this encounter Care Teams Crop Farmers Relationship Specialty Start Date End Date Lili Bliss MD PCP - General 02/26/17 documented as of this encounter
--- OUTSIDE RECORDS SUMMARY | 2024-11-07 17:57 | XMS_ITS | Encounter Summary ---
Author Organization [facility] Address [address] [place] [address] Phone Care Team Providers Care Social Media Manager Name Role Phone Lili Bliss MD Primary Care Provider Unavailabl e Encounter Details Date Type Department Care Team (Late st Contact Info) Description 10/28/2009 Documentation [facility] [place] [address] [place] [address] Family Medicine, Physician [address] [place], [place] [id number] Social History Tobacco Use Types Packs/Day Years [...] on filedocumented in this encounter Care Teams Social Media Manager Relationship Specialty Start Date End Date Lili Bliss MD PCP - General 02/26/17 documented as of this encounter
--- OUTSIDE RECORDS SUMMARY | 2024-11-07 17:57 | XMS_ITS | Encounter Summary ---
Author Organization [facility] Address [address] [place] [address] Phone Care Team Providers Care Earth Sciences Professor Name Role Phone Lili Bliss MD Primary Care Provider Unavailabl e Encounter Details Date Type Department Care Team (Late st Contact Info) Description 02/11/2017 Documentation [facility] [place] [address] [place] [address] Family Medicine, Physician [address] [place] [address] Social History Tobacco Use Types Packs/Day Years [...] on filedocumented in this encounter Care Teams Earth Sciences Professor Relationship Specialty Start Date End Date Lili Bliss MD PCP - General 02/26/17 documented as of this encounter
--- OUTSIDE RECORDS SUMMARY | 2024-11-07 17:57 | XMS_ITS | Encounter Summary ---
Author Organization [facility] Address [address] [place] [address] Phone Care Team Providers Care New Media Strategist Name Role Phone Lili Bliss MD Primary Care Provider Unavailabl e Encounter Details Date Type Department Care Team (Late st Contact Info) Description 06/22/2010 Documentation [facility] [place] [address] [place] [address] Family Medicine, Physician [address] [place], [place] [phone] Social History Tobacco Use Types Packs/Day Years [...] on filedocumented in this encounter Care Teams New Media Strategist Relationship Specialty Start Date End Date Lili Bliss MD PCP - General 02/26/17 documented as of this encounter
--- OUTSIDE RECORDS SUMMARY | 2024-11-07 17:57 | XMS_ITS | Encounter Summary ---
Author Organization [facility] Address [address] [place] [address] Phone Care Team Providers Care Adjustment Clerk Name Role Phone Lili Bliss MD Primary Care Provider Unavailabl e Encounter Details Date Type Department Care Team (Late st Contact Info) Description 03/04/2017 Documentation [facility] [place] Medicine [address] [place] [address] Family Medicine, Physician [address] [place] [address] Social History Tobacco Use Types Packs/Day Years [...] on filedocumented in this encounter Care Teams Adjustment Clerk Relationship Specialty Start Date End Date Lili Bliss MD PCP - General 02/26/17 documented as of this encounter
--- OUTSIDE RECORDS SUMMARY | 2024-11-07 17:57 | XMS_ITS | Encounter Summary ---
Author Organization [facility] Address [address] [place] [address] Phone Care Team Providers Care Refining Engineer Name Role Phone Lili Bliss MD Primary Care Provider Unavailabl e Encounter Details Date Type Department Care Team (Late st Contact Info) Description 03/04/2017 Conversion Encounter [facility] - [address] [address] Social History Tobacco Use Types Packs/Day Years [...] on filedocumented in this encounter Care Teams Refining Engineer Relationship Specialty Start Date End Date Lili Bliss MD PCP - General 02/26/17 documented as of this encounter
== END 2024-11-07 15:36 | disposition home or self-care (01) ==
LOC: HO.ENCR 15:01
PROVIDERS: PCP Nurse Practitioner Family; Visit Provider Student in an Organized Health Care Education/Training Program
DX: R79.89 Other specified abnormal findings of blood chemistry (principal); E05.90 Thyrotoxicosis, unspecified without thyrotoxic crisis or storm
CPT/HCPCS: 99204

== ENCOUNTER 2024-11-07 15:01 | Outpatient (REF) | payer OTHER, SELFPAY ==
[2024-11-07 17:54] LABS: Free T4 (Free Thyroxine) 1.15 ng/dL (0.71-1.85); Thyroid Stimulating Hormone 0.15 uIU/mL (0.32-4.0)
--- OUTSIDE RECORDS SUMMARY | 2024-11-07 18:30 | XMS_ITS | Encounter Summary ---
Author Organization [facility] Address [address] [place] [address] Phone Care Team Providers Care Auto Body Repairman Name Role Phone Lili Bliss MD Primary Care Provider Unavailabl e Encounter Details Date Type Department Care Team (Late st Contact Info) Description 02/02/2014 Documentation [facility] [place] [address] [place] [address] Family Medicine, Physician [address] [place], [place] [address] Social History Tobacco Use Types Packs/Day Years [...] on filedocumented in this encounter Care Teams Auto Body Repairman Relationship Specialty Start Date End Date Lili Bliss MD PCP - General 02/26/17 documented as of this encounter
--- OUTSIDE RECORDS SUMMARY | 2024-11-07 18:30 | XMS_ITS | Encounter Summary ---
Author Organization [facility] Address [address] [place] [address] [facility] [place] [address] Care Team Providers Care Au Pair Name Role Phone Unavailable Primary Care Provider Unavailabl e Encounter Details Date Type Department Care Team (Latest Contact Info) Description 08/09/2018 Abstract [facility] Dental, Provider, DDS Social History [...]
--- OUTSIDE RECORDS SUMMARY | 2024-11-07 18:30 | XMS_ITS | Encounter Summary ---
Author Organization [facility] Address [address] [place] [address] Phone Care Team Providers Care Group President Name Role Phone Lili Bliss MD Primary Care Provider Unavailabl e Encounter Details Date Type Department Care Team (Late st Contact Info) Description 03/04/2017 Conversion Encounter [facility] - [address] [address] Social History Tobacco Use Types Packs/Day Years [...] on filedocumented in this encounter Care Teams Group President Relationship Specialty Start Date End Date Lili Bliss MD PCP - General 02/26/17 documented as of this encounter
--- OUTSIDE RECORDS SUMMARY | 2024-11-07 18:30 | XMS_ITS | Encounter Summary ---
Author Organization [facility] Address [address] [place] [address] Phone Care Team Providers Care Automatic Coin Machine Mechanic Name Role Phone Lili Bliss MD Primary Care Provider Unavailabl e Encounter Details Date Type Department Care Team (Late st Contact Info) Description 03/04/2017 Documentation [facility] [place] [address] [place] [address] Family Medicine, Physician [address] [place] [address] Social History Tobacco Use Types Packs/Day Years [...] on filedocumented in this encounter Care Teams Automatic Coin Machine Mechanic Relationship Specialty Start Date End Date Lili Bliss MD PCP - General 02/26/17 documented as of this encounter
--- OUTSIDE RECORDS SUMMARY | 2024-11-07 18:30 | XMS_ITS | Encounter Summary ---
Author Organization [facility] Address [address] [place] [address] Phone Care Team Providers Care Perennial House Manager Name Role Phone Lili Bliss MD Primary Care Provider Unavailabl e Encounter Details Date Type Department Care Team (Late st Contact Info) Description 12/23/2015 Documentation [facility] [place] [address] [place] [address] Family Medicine, Physician [address] [place], [place] [address]471 Social History Tobacco Use Types Packs/Day Years [...] on filedocumented in this encounter Care Teams Perennial House Manager Relationship Specialty Start Date End Date Lili Bliss MD PCP - General 02/26/17 documented as of this encounter
--- OUTSIDE RECORDS SUMMARY | 2024-11-07 18:30 | XMS_ITS | Encounter Summary ---
Author Organization [facility] Address [address] [place] [address] Phone Care Team Providers Care Academic Support Director Name Role Phone Lili Bliss MD Primary Care Provider Unavailabl e Encounter Details Date Type Department Care Team (Late st Contact Info) Description 10/28/2009 Documentation [facility] [place] [address] [place] [address] Family Medicine, Physician [address] [place], [place] [phone] Social History Tobacco Use Types Packs/Day Years [...] on filedocumented in this encounter Care Teams Academic Support Director Relationship Specialty Start Date End Date Lili Bliss MD PCP - General 02/26/17 documented as of this encounter
--- OUTSIDE RECORDS SUMMARY | 2024-11-07 18:30 | XMS_ITS | Encounter Summary ---
Author Organization [facility] Address [address] [place] [address] Phone Care Team Providers Care Barber Instructor Name Role Phone Lili Bliss MD Primary Care Provider Unavailabl e Encounter Details Date Type Department Care Team (Late st Contact Info) Description 06/22/2010 Documentation [facility] [place] [address] [place] [address] Family Medicine, Physician [address] [place], [place] [phone] Social History Tobacco Use Types Packs/Day Years [...] on filedocumented in this encounter Care Teams Barber Instructor Relationship Specialty Start Date End Date Lili Bliss MD PCP - General 02/26/17 documented as of this encounter
--- OUTSIDE RECORDS SUMMARY | 2024-11-07 18:30 | XMS_ITS | Encounter Summary ---
Author Organization [facility] Address [address] [place] [address] Phone Care Team Providers Care Edge Bonder Name Role Phone Lili Bliss MD Primary Care Provider Unavailabl e Encounter Details Date Type Department Care Team (Late st Contact Info) Description 03/04/2017 Documentation [facility] [place] [address] [place] [address] Family Medicine, Physician [address] [place] [address] Social History Tobacco Use Types Packs/Day Years [...] on filedocumented in this encounter Care Teams Edge Bonder Relationship Specialty Start Date End Date Lili Bliss MD PCP - General 02/26/17 documented as of this encounter
--- OUTSIDE RECORDS SUMMARY | 2024-11-07 18:30 | XMS_ITS | Clinical Summary ---
Author Organization [employer] Address [address] [place] [address] 7 [place] [address] Care Team Providers Care Educational Institution President Name Role Phone Unavailable Primary Care Provider [...]
--- OUTSIDE RECORDS SUMMARY | 2024-11-07 18:30 | XMS_ITS | Encounter Summary ---
Author Organization [facility] Address [address] [place] [address] Phone Care Team Providers Care Dynamite Packing Machine Feeder Name Role Phone Lili Bliss MD Primary Care Provider Unavailabl e Encounter Details Date Type Department Care Team (Late st Contact Info) Description 02/11/2017 Documentation [facility] [place] [address] [place] [address] Family Medicine, Physician [address] [place] [address] Social History Tobacco Use Types Packs/Day Years [...] on filedocumented in this encounter Care Teams Dynamite Packing Machine Feeder Relationship Specialty Start Date End Date Lili Bliss MD PCP - General 02/26/17 documented as of this encounter
--- OUTSIDE RECORDS SUMMARY | 2024-11-07 18:30 | XMS_ITS | Encounter Summary ---
Author Organization [facility] Address [address] [place] [address] Phone Care Team Providers Care Sap Basis Consultant Name Role Phone Lili Bliss MD Primary Care Provider Unavailabl e Encounter Details Date Type Department Care Team (Late st Contact Info) Description 03/04/2017 Documentation [facility] [place] [address] [place] [address] Family Medicine, Physician [address] [place] [address] Social History Tobacco Use Types Packs/Day Years [...] on filedocumented in this encounter Care Teams Sap Basis Consultant Relationship Specialty Start Date End Date Lili Bliss MD PCP - General 02/26/17 documented as of this encounter
--- OUTSIDE RECORDS SUMMARY | 2024-11-07 18:30 | XMS_ITS | Encounter Summary ---
Author Organization [facility] Address [address] [place] [address] Phone Care Team Providers Care Bell Staff Name Role Phone Lili Bliss MD Primary Care Provider Unavailabl e Encounter Details Date Type Department Care Team (Late st Contact Info) Description 06/22/2010 Documentation [facility] [place] [address] [place] [address] Family Medicine, Physician [address] [place], [place] 47[address] Social History Tobacco Use Types Packs/Day Years [...] on filedocumented in this encounter Care Teams Bell Staff Relationship Specialty Start Date End Date Lili Bliss MD PCP - General 02/26/17 documented as of this encounter
--- OUTSIDE RECORDS SUMMARY | 2024-11-07 18:30 | XMS_ITS | Clinical Summary ---
Author Organization [facility] Address [address] [place] [address] Phone Care Team Providers Care Materials Coordinator Name Role Phone Lili Bliss MD Primary [...] of Deafness, No family history of *Sudden /[place] under 55, No family history of *Thrombophilia, [...] this topic Procedures * Due to [place] [employer] [place] law, this organization might not be sharing sensitive test results. Procedure Name Priority Date/Time Associated Diagnosis Comments CHLAMYDIA AND GONORRHEA, AMPLIFIED Routine 07/22/2015 1:17 PM EST from Last 3 Months or Most Recently Relevant to Health Maintenance Results * Due to [place] [employer] [place] law, this organization might not be sharing sensitive test results. * Chlamydia and Gonorrhoea, Amplified (07/22/2015 1:17 PM EST) URINE CHLAMYDIA AMP PROBE NEGATIVE [facility] Comment: No Chlamydia Trachomatis RNA detected in this patient's sample (REFERENCE RANGE/NORMAL VALUE: NOT DETECTED) URINE GC AMP PROBE NEGATIVE [facility] Comment: No Neisseria Gonorrhoeae RNA detected in this patient's sample (REFERENCE RANGE/NORMAL VALUE: NOT DETECTED) NOTE: This test uses advertising associate-mediated amplification method to detect rRNA from C.Trachomatis [...] risk of sexual abuse. Consult the [facility] [place] if needed. Contact phone number . Therapeutic failure or success cannot be determined with the Aptima Combo2 assay since nucleic acid may persist following appropriate antimicrobial therapy. The Centers for Disease Control and Prevention (CDC) recommends confirmatory retesting using culture or a different nucleic acid amplification test when positive results occur, if indicated. Testing performed or reported by [facility], a Service of [facility], [address] [place] [address] CLIA ??[id number] Joey Coles MD, PhD, Medical Imaging Director 07/22/2015 1:17 PM EST Narrative [facility] - 07/22/2015 1:17 PM EST URINE CHLAMYDIA GC AMP PROBE us Lili Bliss MD LAB MICROBIOLOGY - GENERAL ORDER HEIDI Final Result [facility] [address] [place], [place] [id number], from Last 3 Months or Most Recently Relevant to Health Maintenance Care Teams Materials Coordinator Relationship Specialty Start Date End Date Lili Bliss MD PCP - General 02/26/17
--- OUTSIDE RECORDS SUMMARY | 2024-11-07 18:30 | XMS_ITS | Encounter Summary ---
Author Organization [facility] Address [address] [place] [address] Phone Care Team Providers Care Diesel Service Journeyman Name Role Phone Lili Bliss MD Primary Care Provider Unavailabl e Encounter Details Date Type Department Care Team (Late st Contact Info) Description 12/04/2009 Documentation [facility] [place] Family Medicine [address] [place] [address] Family Medicine, Physician [address] [place], [place] [phone] Social History Tobacco Use Types Packs/Day Years [...] on filedocumented in this encounter Care Teams Diesel Service Journeyman Relationship Specialty Start Date End Date Lili Bliss MD PCP - General 02/26/17 documented as of this encounter
[2024-11-08 04:29] LABS: Triiodothyronine T3 Total 105 ng/dL (76-181)
[2024-11-08 20:48] LABS: Thyroid Peroxidase Antibodies 539 IU/mL (<9)
[2024-11-10 15:23] LABS: Thyroid Stimulating Immunoglob <89 % baseline (<140)
== END 2024-11-07 15:02 | disposition home or self-care (01) ==
LOC: HO.LAB 15:01
PROVIDERS: PCP Physician Assistant; Visit Provider Student in an Organized Health Care Education/Training Program
DX: E05.90 Thyrotoxicosis, unspecified without thyrotoxic crisis or storm (principal); R79.89 Other specified abnormal findings of blood chemistry
CPT/HCPCS: 36415; 84439; 84443; 84445; 84480; 86376; 99202

== ENCOUNTER 2024-11-30 13:52 | Outpatient (AMB) | payer OTHER, SELFPAY ==
--- NOTE | 2024-11-30 13:56 | A.OFFPC_ITS ---
Vital Signs 11/30/24 13:58 Height 5 ft 6 in Weight 177 lb 6 oz BMI 28.6 BP 104/64 Blood Pressure Location Rt brachial Position Sitting Respiration 12 Pulse 71 Pulse Source Pulse Oximeter Pulse Oximetry (%) 100 Oxygen Delivery Method Room Air Intake Visit Reasons: f/u labs Intake Note: Follow up labs Mill Order Scheduler Required: No Allergies apple Allergy (Severe, Verified 11/30/24 13:58) hives fluconazole Allergy (Severe, Verified 11/30/24 13:58) hives Medication List - Last Reconciled 11/30/24 by Cristy Parikh PA-C clotrimazole-betamethasone 1-0.05 % 1 appl topical BID 4 weeks hydroxyzine HCl 25 mg PO BID PRN Tobacco use date assessed: 11/30/24 Dental Screening Dental Screen Date: 11/30/24 Did you have a dental visit in the last 12 months?: Yes Did you have a dental problem in the last 6 months where you did not have access to dental care?: No Was dental information given to patient?: Patient has dentist HPI f/u labs HPI Details Patient is a 28-year-old female who presents today for a follow up of a rash on her arm. Derm: She says that she has had a rash on her left anterior arm resolved with treatment with clotrimazole/betamethasone. She states now it does not have any circular qualities but now that she has been off of the cream she can see sometimes that it gets a little papular and rough. She thinks that it is eczema. Her son just got diagnosed with eczema as well. Heme/onc: She sees hematology for PE. She has not needed off of blood thinners since Apr 2024. States that the PE has resolved and she does have follow up scheduled. It was felt to be induced from OCPs. General: Reports feeling fatigued. She did have labs with PCP and it did come back that her thyroid is overactive. She has an upcoming ultrasound and uptake scan. She is following closely with endocrinology and they did discuss plans to treat this. Endo: Scheduled to see endocrinology for follow up next month. 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 [facility] Medical History (Updated 12/01/24 @ 09:32 by Cristy Pairkh PA-C) Subclinical hyperthyroidism Pulmonary embolism Tiredness Stiffness of right knee Immunization series complete Anal fissure Bloody stools Hemorrhoids Surgical History History of excision of pilonidal cyst History of wisdom tooth extraction History of removal of cyst H/O heart surgery Family History Father Asthma Allergies Mother Anemia Hypertension Maternal Grandmother Hypertension Multiple myeloma Paternal Grandfather Hypertension Prostate cancer Paternal Grandmother Chronic mental illness Other Mental health disorder Social History Housing: House Alcohol intake: current Alcohol intake frequency: holidays/special occasions only Alcohol type: beer Patient Tobacco Use Status: Never used Tobacco e-Cigarette/Vaping Use: Never Used Second Hand Smoke Exposure: No service: No Current occupational status: employed 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 Current occupational exposures/hazards: Yes Cognitive needs: No Hearing needs: No Vision needs: No Questionnaire Thrive Questionnaire Date Thrive assessed: 08/31/24 I am a: Patient What is your living situation today?: I have a steady place to live Within the past 12 months, did the food you bought not last and you didn't have the money to get more?: Never true Within the past 12 months, did you worry whether your food would run out before you got money to buy more?: Never true Do you have trouble paying for medicines?: No Do you have trouble getting transportation to medical appointments?: No Do you have trouble paying your heating and electricity bill?: No Do you have trouble taking care of your child, family member or friend?: No Do you have trouble with day-to-day activities such as bathing, preparing meals, shopping, managing finances, etc.?: No Are you currently unemployed and looking for a job?: No Are you interested in more education?: No Please select the resources that you would like help with: None Currently or been in a relationship where the following occur: I choose not to answer THRIVE Score: 0 ALEA-7 AMB Questionnaire ALEA-7 Date ALEA - 7 assessed: 10/13/24 Source: Developed by Drs. Anders Lynn, Tahmina Crook, Juanjose Osborne and colleagues, with an educational negin from [employer]. Physical exam (Primary Care) Vital Signs: Last Vital Signs Pulse 71 11/30/24 13:58 Resp 12 11/30/24 13:58 BP 104/64 11/30/24 13:58 Pulse Ox 100 11/30/24 13:58 Oxygen Delivery Method Room Air 11/30/24 13:58 BMI result Body Mass Index 28.6 Tobacco/Smoking Status: Tobacco use Status Tobacco use date assessed 11/30/24 11/30/24 14:00 Patient Tobacco Use Status Never used Tobacco 11/30/24 14:00 e-Cigarette/Vaping Use Never Used 11/30/24 14:00 Thrive Assessment: Date of Thrive Assessment Date Thrive assessed 08/31/24 11/30/24 14:00 Currently or been in a relationship where the following occur: I choose not to answer Const Orientation/consciousness: patient oriented x3 HENMT Ears: hearing grossly normal bilaterally Neck Thyroid: Thyroid normal Lymphatic: no lymphadenopathy noted Resp Auscultation: clear to auscultation bilaterally Cardio Rate: regular rate Rhythm: regular rhythm Heart sounds: S1 normal heart sound present and S2 normal heart sound present Skin General skin exam: no rashes or lesions noted Neuro General: patient oriented x3, gait normal and no focal motor deficits Results Reviewed Results Reviewed: Laboratory Tests 09/29/24 11/07/24 13:25 15:48 WBC 5.8 RBC 4.79 Hgb 12.8 Hct 40.1 Plt Count 221 25-OH Vitamin D Total 33.1 TSH 0.15 L Thyroid Peroxidase Ab 539 H Coding Level of Care Code Est Pt Level 4 (06039) Diagnoses Low TSH level R79.89 Atopic dermatitis L20.9 Assessment & Plan Assessment & Plan (1) Low TSH level: Code(s): R79.89 - Other specified abnormal findings of blood chemistry Category: Medical Plan: following with endo (2) Atopic dermatitis: Code(s): L20.9 - Atopic dermatitis, unspecified Category: Medical Plan: advised to use triamcinolone cream as needed for flare-ups. Medications: New triamcinolone acetonide 0.025% 1 appl topical BID 15 grams 2RF
[2024-11-30 13:58] VITALS: BP 104/64; PULSE 71; RESP 12; O2SAT 100; BMI 28.6
--- OUTSIDE RECORDS SUMMARY | 2024-11-30 14:33 | XMS_ITS | Clinical Summary ---
Author Organization [email or web address] Address [address] [place] [address] 7 [place] [address] Care Team Providers Care Heel Former Name Role Phone Unavailable Primary Care Provider [...]
--- OUTSIDE RECORDS SUMMARY | 2024-11-30 14:33 | XMS_ITS | Encounter Summary ---
Author Organization [facility] Address [address] [place] [address] Phone Care Team Providers Care Satellite Dish Installer Name Role Phone Lili Bliss MD Primary Care Provider Unavailabl e Encounter Details Date Type Department Care Team (Late st Contact Info) Description 06/22/2010 Documentation [facility] [place] [address] [place] [address] Family Medicine, Physician [address] [place], [place] [id number] Social History Tobacco Use Types Packs/Day Years [...] on filedocumented in this encounter Care Teams Satellite Dish Installer Relationship Specialty Start Date End Date Lili Bliss MD PCP - General 02/26/17 documented as of this encounter
--- OUTSIDE RECORDS SUMMARY | 2024-11-30 14:33 | XMS_ITS | Encounter Summary ---
Author Organization [facility] Address [address] [place] [address] Phone Care Team Providers Care Riveter Automobile Brakes Name Role Phone Lili Bliss MD Primary Care Provider Unavailabl e Encounter Details Date Type Department Care Team (Late st Contact Info) Description 02/11/2017 Documentation [facility] [place] Family Medicine [address] [place] [address] Family Medicine, Physician [address] [place] [address] Social History Tobacco Use Types Packs/Day Years [...] on filedocumented in this encounter Care Teams Riveter Automobile Brakes Relationship Specialty Start Date End Date Lili Bliss MD PCP - General 02/26/17 documented as of this encounter
--- OUTSIDE RECORDS SUMMARY | 2024-11-30 14:33 | XMS_ITS | Encounter Summary ---
Author Organization [facility] Address [address] [place] [address] Phone Care Team Providers Care Mold Operator Name Role Phone Lili Bliss MD Primary Care Provider Unavailabl e Encounter Details Date Type Department Care Team (Late st Contact Info) Description 02/02/2014 Documentation [facility] [place] [address] [place] [address] Family Medicine, Physician [address] [place], [place] [address] Social History Tobacco Use Types Packs/Day Years [...] on filedocumented in this encounter Care Teams Mold Operator Relationship Specialty Start Date End Date Lili Bliss MD PCP - General 02/26/17 documented as of this encounter
--- OUTSIDE RECORDS SUMMARY | 2024-11-30 14:33 | XMS_ITS | Encounter Summary ---
Author Organization [facility] Address [address] [place] [address] Phone Care Team Providers Care Cigar Packer Name Role Phone Lili Bliss MD Primary Care Provider Unavailabl e Encounter Details Date Type Department Care Team (Late st Contact Info) Description 03/04/2017 Documentation [facility] [place] [address] [place] [address] Family Medicine, Physician [address] [place] [address] Social History Tobacco Use Types Packs/Day Years [...] on filedocumented in this encounter Care Teams Cigar Packer Relationship Specialty Start Date End Date Lili Bliss MD PCP - General 02/26/17 documented as of this encounter
--- OUTSIDE RECORDS SUMMARY | 2024-11-30 14:33 | XMS_ITS | Clinical Summary ---
Author Organization [facility] Address [address] [place] [address] Phone Care Team Providers Care Recording Studio Set Up Worker Name Role Phone Lili Bliss MD [...] of Deafness, No family history of *Sudden /SD under 55, No family history of *Thrombophilia, [...] complete this topic Procedures * Due to [place] [employer] law, this organization might not be sharing sensitive test results. Procedure Name Priority Date/Time Associated Diagnosis Comments CHLAMYDIA AND GONORRHEA, AMPLIFIED Routine 07/22/2015 1:17 PM EST from Last 3 Months or Most Recently Relevant to Health Maintenance Results * Due to [place] [employer] law, this organization might not be sharing [...] VALUE: NOT DETECTED) NOTE: This test uses rig hand-mediated amplification method to detect rRNA from C.Trachomatis [...] without risk of sexual abuse. Consult the [facility] [place] if needed. Contact phone number . Therapeutic failure or success cannot be determined with the Aptima Combo2 assay since nucleic acid may persist following appropriate antimicrobial therapy. The Centers for Disease Control and Prevention (CDC) recommends confirmatory retesting using culture or a different nucleic acid amplification test when positive results occur, if indicated. Testing performed or reported by [facility], a Service of [facility], [address] [place] [address] CLIA ??[id number] Joey Coles MD, PhD, Snap Shearer 07/22/2015 1:17 PM EST Narrative [facility] - 07/22/2015 1:17 PM EST URINE CHLAMYDIA GC AMP PROBE us Lili Bliss MD LAB MICROBIOLOGY - GENERAL ORDER HEIDI Final Result [facility] [address] [place], [place] [id number], from Last 3 Months or Most Recently Relevant to Health Maintenance Care Teams Recording Studio Set Up Worker Relationship Specialty Start Date End Date Lili Bliss MD PCP - General 02/26/17
--- OUTSIDE RECORDS SUMMARY | 2024-11-30 14:33 | XMS_ITS | Encounter Summary ---
Author Organization [facility] Address [address] [place] [address] Phone Care Team Providers Care Charging Manipulator Name Role Phone Lili Bliss MD Primary Care Provider Unavailabl e Encounter Details Date Type Department Care Team (Late st Contact Info) Description 03/04/2017 Documentation [facility] [place] Family Medicine [address] [place] [address] Family Medicine, Physician [address] [place] [address] Social History Tobacco Use Types Packs/Day Years [...] on filedocumented in this encounter Care Teams Charging Manipulator Relationship Specialty Start Date End Date Lili Bliss MD PCP - General 02/26/17 documented as of this encounter
--- OUTSIDE RECORDS SUMMARY | 2024-11-30 14:33 | XMS_ITS | Encounter Summary ---
Author Organization [facility] Address [address] [place] [address] Phone Care Team Providers Care Market Research Executive Name Role Phone Lili Bliss MD Primary Care Provider Unavailabl e Encounter Details Date Type Department Care Team (Late st Contact Info) Description 12/04/2009 Documentation [facility] [place] [address] [place] [address] Family Medicine, Physician [address] [place], [place] [phone] Social History Tobacco Use Types Packs/Day Years [...] on filedocumented in this encounter Care Teams Market Research Executive Relationship Specialty Start Date End Date Lili Bliss MD PCP - General 02/26/17 documented as of this encounter
--- OUTSIDE RECORDS SUMMARY | 2024-11-30 14:33 | XMS_ITS | Encounter Summary ---
Author Organization [facility] Address [address] [place] [address] Phone Care Team Providers Care Crayon Sawyer Name Role Phone Lili Bliss MD Primary Care Provider Unavailabl e Encounter Details Date Type Department Care Team (Late st Contact Info) Description 10/28/2009 Documentation [facility] [place] Family Medicine [address] [place] [address] Family Medicine, Physician [address] [place], [place] [phone] Social History Tobacco Use Types Packs/Day Years [...] on filedocumented in this encounter Care Teams Crayon Sawyer Relationship Specialty Start Date End Date Lili Bliss MD PCP - General 02/26/17 documented as of this encounter
--- OUTSIDE RECORDS SUMMARY | 2024-11-30 14:33 | XMS_ITS | Encounter Summary ---
Author Organization [employer] Address [address] [place] [address] Care Team Providers Care Statistical Clerk Name Role Phone Unavailable Primary Care Provider Unavailabl e Encounter Details Date Type Department Care Team (Latest Contact Info) Description 08/09/2018 Abstract [facility] CONVERSIONS Dental, Provider, DDS Social History [...]
--- OUTSIDE RECORDS SUMMARY | 2024-11-30 14:33 | XMS_ITS | Encounter Summary ---
Author Organization [facility] Address [address] [place] [address] Phone Care Team Providers Care Wall Taper Helper Name Role Phone Lili Bliss MD Primary Care Provider Unavailabl e Encounter Details Date Type Department Care Team (Late st Contact Info) Description 03/04/2017 Documentation [facility] [place] Family Medicine [address] [place] [address] Family Medicine, Physician [address] [place] [address] Social History Tobacco Use Types Packs/Day Years [...] on filedocumented in this encounter Care Teams Wall Taper Helper Relationship Specialty Start Date End Date Lili Bliss MD PCP - General 02/26/17 documented as of this encounter
--- OUTSIDE RECORDS SUMMARY | 2024-11-30 14:33 | XMS_ITS | Encounter Summary ---
Author Organization [facility] Address [address] [place] [address] Phone Care Team Providers Care Technology Officer Name Role Phone Lili Bliss MD Primary Care Provider Unavailabl e Encounter Details Date Type Department Care Team (Late st Contact Info) Description 12/23/2015 Documentation [facility] [place] Family Medicine [address] [place] [address] Family Medicine, Physician [address] [place], [place] [address]691 Social History Tobacco Use Types Packs/Day Years [...] on filedocumented in this encounter Care Teams Technology Officer Relationship Specialty Start Date End Date Lili Bliss MD PCP - General 02/26/17 documented as of this encounter
--- OUTSIDE RECORDS SUMMARY | 2024-11-30 14:33 | XMS_ITS | Encounter Summary ---
Author Organization [facility] Address [address] [place] [address] Phone Care Team Providers Care Open Hearth Melter Name Role Phone Lili Bliss MD Primary Care Provider Unavailabl e Encounter Details Date Type Department Care Team (Late st Contact Info) Description 03/04/2017 Conversion Encounter [facility] - [address] [address] Social History Tobacco Use Types Packs/Day Years [...] on filedocumented in this encounter Care Teams Open Hearth Melter Relationship Specialty Start Date End Date Lili Bliss MD PCP - General 02/26/17 documented as of this encounter
--- OUTSIDE RECORDS SUMMARY | 2024-11-30 14:33 | XMS_ITS | Encounter Summary ---
Author Organization [facility] Address [address] [place] [address] Phone Care Team Providers Care Unloading Checker Name Role Phone Lili Bliss MD Primary Care Provider Unavailabl e Encounter Details Date Type Department Care Team (Late st Contact Info) Description 06/22/2010 Documentation [facility] [place] Family Medicine [address] [place] [address] Family Medicine, Physician [address] [place], [place] [address] Social History Tobacco Use Types Packs/Day Years [...] on filedocumented in this encounter Care Teams Unloading Checker Relationship Specialty Start Date End Date Lili Bliss MD PCP - General 02/26/17 documented as of this encounter
== END 2024-11-30 14:25 | disposition home or self-care (01) ==
LOC: HO.HMCFM 13:53
PROVIDERS: PCP Physician Assistant; Visit Provider Physician Assistant
DX: R79.89 Other specified abnormal findings of blood chemistry (principal); L20.9 Atopic dermatitis, unspecified

== ENCOUNTER → 2024-11-30 13:52 | Outpatient (BNVA) | payer OTHER, SELFPAY | PROVIDERS: PCP Physician Assistant; Visit Provider Physician Assistant | DX: L20.9 Atopic dermatitis, unspecified (principal); R79.89 Other specified abnormal findings of blood chemistry | CPT/HCPCS: 99212 ==

== ENCOUNTER 2024-12-07 14:35 | Outpatient (REF) | payer OTHER, SELFPAY ==
--- NOTE | ~2024-12-07 | US_ITS ---
EXAMINATION: US THYROID HISTORY: E05.90 - Thyrotoxicosis, unspecified without thyrotoxic crisis or storm TECHNIQUE: Real-time grayscale ultrasound imaging was performed and images were reviewed. COMPARISON: Correlation is made with a chest CT dated 06/29/2023. FINDINGS: SIZE: The right thyroid lobe measures 5.4 x 2.3 x 2.2 cm. The left thyroid lobe measures 4.9 x 1.5 x 2.0 cm. The isthmus measures 5 mm. FLOW: Flow to the gland is increased. ECHOGENICITY: The echotexture of the gland is homogeneous. NODULES: Right-sided thyroid nodules are noted as described below: Nodule #: 1 Location: Right upper pole measuring 1.3 x 0.8 x 1.2 cm. Shape: Wider than tall (0 points) Margins: Smooth (0 points) Echotexture: Isoechoic (1 point) Composition: Solid (2 points) Calcifications: None (0 points) Total points: 3 TIRADS: TR3: Mildly suspicious. Nodule #: 2 Location: Midportion of the right thyroid lobe measuring 1.2 x 0.8 x 1.0 cm. Shape: Wider than tall (0 points) Margins: Smooth (0 points) Echotexture: Hyperechoic (1 point) Composition: Solid (2 points) Calcifications: None (0 points) Total points: 3 TIRADS: TR3: Mildly suspicious. US/US thyroid IMPRESSION: Mildly suspicious right-sided nodules as described. According to ACR TI-RADS criteria below, no additional workup is required. ACR TI-RADS Guidelines TR1 (0 points): Benign, No follow-up or biopsy required TR2 (2 points): Not Suspicious, No biopsy or follow up indicated TR3 (3 points): Mildly Suspicious, FNA if >= 2.5 cm, Follow if >= 1.5 cm TR4 (4-6 points): Moderately Suspicious, FNA if >= 1.5 cm, Follow if >= 1.0 cm TR5 (>=7 points): Highly Suspicious, FNA if >= 1.0 cm, Follow if >= 0.5 cm Electronically signed by: Anders Peterson MD 12/07/2024 03:47 PM EDT
--- OUTSIDE RECORDS SUMMARY | 2024-12-07 14:37 | XMS_ITS | Encounter Summary ---
Author Organization [facility] Address [address] [place] [address] Phone Care Team Providers Care Floating Derrick Operator Name Role Phone Lili Bliss MD Primary Care Provider Unavailabl e Encounter Details Date Type Department Care Team (Late st Contact Info) Description 12/04/2009 Documentation [facility] [place] Family Medicine [address] [place] [address] Family Medicine, Physician [address] [place], [place] [phone] Social History Tobacco Use Types Packs/Day Years [...] on filedocumented in this encounter Care Teams Floating Derrick Operator Relationship Specialty Start Date End Date Lili Bliss MD PCP - General 02/26/17 documented as of this encounter
== END 2024-12-07 14:36 | disposition home or self-care (01) ==
LOC: HO.US 14:35
PROVIDERS: PCP Physician Assistant; Visit Provider Student in an Organized Health Care Education/Training Program
DX: E05.90 Thyrotoxicosis, unspecified without thyrotoxic crisis or storm (principal)
CPT/HCPCS: 76536

== ENCOUNTER → 2024-12-07 14:37 | Outpatient (BNV) | payer OTHER, SELFPAY | PROVIDERS: PCP Physician Assistant; Visit Provider Radiology Diagnostic Radiology | DX: E05.90 Thyrotoxicosis, unspecified without thyrotoxic crisis or storm (principal) | CPT/HCPCS: 76536 ==

== ENCOUNTER → 2024-12-21 10:14 | Outpatient (REF) | payer OTHER, SELFPAY ==
--- NOTE | ~2024-12-21 | NM_ITS ---
EXAMINATION: NM THYROID IMAGING AND UPTAKE CLINICAL INFORMATION: E05.90 - Thyrotoxicosis, unspecified without thyrotoxic crisis or storm COMPARISON: Correlation is made with a thyroid ultrasound dated 12/07/2024. TECHNIQUE: Following the oral administration of 282 microcuries of I-123 sodium iodide, thyroid uptake was performed and expressed as a percentage of the administrated dose. Gamma scintillation camera images of the thyroid in the anterior and right and left anterior oblique views were obtained using a pinhole collimator following the administration of 10 mCi Tc-99m pertechnetate. FINDINGS: There is a homogeneous distribution of activity throughout both thyroid lobes. There is a prominent pyramid middle lobe visualized. No discrete hot or cold abnormalities are identified. The uptake is 35.55% at 2.73 hours and 62.67% at 24 hours. NM/NM thyroid w uptake IMPRESSION: Markedly elevated thyroid uptake at 3 and 24 hours with visualization of a prominent pyramidal lobe. Findings are compatible with Graves' disease. Electronically signed by: Anders Peterson MD 12/22/2024 12:03 PM EDT
--- OUTSIDE RECORDS SUMMARY | 2024-12-21 11:54 | XMS_ITS | Encounter Summary ---
Author Organization [employer] Address [address] [place] [address] Care Team Providers Care Body Art Technician Name Role Phone Unavailable Primary Care Provider Unavailabl e Encounter Details Date Type Department Care Team (Latest Contact Info) Description 08/09/2018 Abstract [facility] CONVERSIONS Dental, Provider, DDS Social History [...]
== END ==
LOC: HO.NUCMED 10:14
PROVIDERS: PCP Physician Assistant; Visit Provider Student in an Organized Health Care Education/Training Program
DX: E05.90 Thyrotoxicosis, unspecified without thyrotoxic crisis or storm (principal)
CPT/HCPCS: 78014; A9512; A9516

== ENCOUNTER → 2024-12-21 10:16 | Outpatient (BNV) | payer OTHER, SELFPAY | PROVIDERS: PCP Physician Assistant; Visit Provider Radiology Diagnostic Radiology | DX: E05.90 Thyrotoxicosis, unspecified without thyrotoxic crisis or storm (principal) | CPT/HCPCS: 78014 ==

== ENCOUNTER 2024-12-25 15:02 | Outpatient (AMB) | payer OTHER, SELFPAY ==
[2024-12-25 15:05] VITALS: BP 106/80; PULSE 80; O2SAT 95; BMI 29.5
--- NOTE | 2024-12-25 15:05 | MHC.OFFVIS ---
Vital Signs 12/25/24 15:05 Height 5 ft 6 in Weight 182 lb 12.211 oz BMI 29.5 BP 106/80 Blood Pressure Location Lt brachial Position Sitting Pulse 80 Pulse Source Pulse Oximeter Pulse Oximetry (%) 95 Oxygen Delivery Method Room Air Intake Visit Reasons: Low TSH level Intake Note: Patient present today for Low TSH level. Sew Out Operator Required: No Accompanied by: Self / Same As Patient Allergies apple Allergy (Severe, Verified 12/25/24 15:17) hives fluconazole Allergy (Severe, Verified 12/25/24 15:17) hives Medication List - Last Reconciled 12/25/24 by Barbara Dorantes MD clotrimazole-betamethasone 1-0.05 % 1 appl topical BID 4 weeks hydroxyzine HCl 25 mg PO BID PRN triamcinolone acetonide 0.025% 1 appl topical BID HPI Comments Details: 29-year-old female here today for fup of subclinical hyperthyroidism. 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 Chart review shows that labs from 09/29/2024 showed TSH was low at 0.05, free T4 normal at 1.42. Labs repeated 10/02/2024 again showed low TSH of 0.03, free T4 normal at 1.52. Total T3 also normal at 162. Previously she has had normal thyroid labs in 2022. No preceding viral illness No Contrast exposure Patient currently denies heat or cold intolerance, diarrhea or constipation, palpitation, changes in appearance of eyes or vision changes, tremors, increased diaphoresis or dry skin. ? LMP:10/31/24, periods every month , has IUD , feels periods now lasting more days Some hair loss post , 7 months post , improving now No weight loss , weight stable Does complain of anxiety Tiredness and low energy , does wake up in the middle of the night Patient denies any difficulty swallowing, pain on swallowing or voice changes or difficulty breathing. Patient denies any history of childhood neck radiation. Denies having ever used lithium, amiodarone or biotin supplements. Patient denies any family history of thyroid cancer . Maternal cousin has thyroid disease. 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 None meet criteria for FNA however I would plan to repeat an ultrasound maybe in 1 year in November 2025. Overall vascularity is increased. Thyroid uptake and scan done 12/21/2024, I reviewed the images myself showed overall increased uptake present diffusely with no hot or cold nodules. Labs repeated 11/07/2024 showed TSH 0.15 which is low, free T4 normal at 1.15, normal total T3 of 105, TSI antibodies undetectable, and TSH receptor antibodies normal, TPO antibodies elevated at 539. Physical exam General: sitting comfortably in no acute distress HEENT: normocephalic/atraumatic,moist oral mucosa, no exophthalmos, no lid lag Neck: supple, thyromegaly noted Cardiac: normal heart sounds Pulm: normal breath sounds B/L, no added breath sounds Abd: not distended, no tenderness Extremities: no edema, no signs of myxedema, no tremor today Neuro: AAO x3, Speech: normal, no facial droop, moving all 4 extremities Laboratory Tests 04/16/23 09/29/24 10/02/24 11:20 13:25 13:49 TSH 0.51 0.07 L 0.03 L Free T4 1.42 1.52 Total T3 162 Laboratory Tests 10/10/24 14:14 TSH Receptor Ab 1.71 Laboratory Tests 10/10/24 11/07/24 14:14 15:48 TSH 0.15 L Free T4 1.15 Total T3 105 Thyroid Stim Immunoglob <89 Thyroid Peroxidase Ab 539 H TSH Receptor Ab 1.71 EXAMINATION: NM THYROID IMAGING AND UPTAKE 12/21/24 CLINICAL INFORMATION: E05.90 - Thyrotoxicosis, unspecified without thyrotoxic crisis or storm COMPARISON: Correlation is made with a thyroid ultrasound dated 12/07/2024. TECHNIQUE: Following the oral administration of 282 microcuries of I-123 sodium iodide, thyroid uptake was performed and expressed as a percentage of the administrated dose. Gamma scintillation camera images of the thyroid in the anterior and right and left anterior oblique views were obtained using a pinhole collimator following the administration of 10 mCi Tc-99m pertechnetate. FINDINGS: There is a homogeneous distribution of activity throughout both thyroid lobes. There is a prominent pyramid middle lobe visualized. No discrete hot or cold abnormalities are identified. The uptake is 35.55% at 2.73 hours and 62.67% at 24 hours. NM/NM thyroid w uptake IMPRESSION: Markedly elevated thyroid uptake at 3 and 24 hours with visualization of a prominent pyramidal lobe. Findings are compatible with Graves' disease. Electronically signed by: Anders Peterson MD 12/22/2024 12:03 PM EDT EXAMINATION: US THYROID 12/07/24 HISTORY: E05.90 - Thyrotoxicosis, unspecified without thyrotoxic crisis or storm TECHNIQUE: Real-time grayscale ultrasound imaging was performed and images were reviewed. COMPARISON: Correlation is made with a chest CT dated 06/29/2023. FINDINGS: SIZE: The right thyroid lobe measures 5.4 x 2.3 x 2.2 cm. The left thyroid lobe measures 4.9 x 1.5 x 2.0 cm. The isthmus measures 5 mm. FLOW: Flow to the gland is increased. ECHOGENICITY: The echotexture of the gland is homogeneous. NODULES: Right-sided thyroid nodules are noted as described below: Nodule #: 1 Location: Right upper pole measuring 1.3 x 0.8 x 1.2 cm. Shape: Wider than tall (0 points) Margins: Smooth (0 points) Echotexture: Isoechoic (1 point) Composition: Solid (2 points) Calcifications: None (0 points) Total points: 3 TIRADS: TR3: Mildly suspicious. Nodule #: 2 Location: Midportion of the right thyroid lobe measuring 1.2 x 0.8 x 1.0 cm. Shape: Wider than tall (0 points) Margins: Smooth (0 points) Echotexture: Hyperechoic (1 point) Composition: Solid (2 points) Calcifications: None (0 points) Total points: 3 TIRADS: TR3: Mildly suspicious. US/US thyroid IMPRESSION: Mildly suspicious right-sided nodules as described. According to ACR TI-RADS criteria below, no additional workup is required. [facility] Medical History (Updated 12/01/24 @ 09:32 by Cristy Parikh PA-C) Subclinical hyperthyroidism Pulmonary embolism Tiredness Stiffness of right knee Immunization series complete Anal fissure Bloody stools Hemorrhoids Surgical History History of excision of pilonidal cyst History of wisdom tooth extraction History of removal of cyst H/O heart surgery Family History Father Asthma Allergies Mother Anemia Hypertension Maternal Grandmother Hypertension Multiple myeloma Paternal Grandfather Hypertension Prostate cancer Paternal Grandmother Chronic mental illness Other Mental health disorder Social History Housing: House Alcohol intake: current Alcohol intake frequency: holidays/special occasions only Alcohol type: beer Patient Tobacco Use Status: Never used Tobacco e-Cigarette/Vaping Use: Never Used Second Hand Smoke Exposure: No service: No Current occupational status: employed 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 Current occupational exposures/hazards: Yes Cognitive needs: No Hearing needs: No Vision needs: No Physical Exam Vital Signs: Last Vital Signs Pulse 80 12/25/24 15:05 BP 106/80 12/25/24 15:05 Pulse Ox 95 12/25/24 15:05 Oxygen Delivery Method Room Air 12/25/24 15:05 BMI result Body Mass Index 29.5 Assessment & Plan Assessment & Plan (1) Subclinical hyperthyroidism: Code(s): E05.90 - Thyrotoxicosis, unspecified without thyrotoxic crisis or storm Category: Medical Plan: 29-year-old female coming in today for follow up of subclinical hyperthyroidism.Chart review shows that labs from 09/29/2024 showed TSH was low at 0.05, free T4 normal at 1.42. Labs repeated 10/02/2024 again showed low TSH of 0.03, free T4 normal at 1.52. Total T3 also normal at 162. Previously she has had normal thyroid labs in 2022. She does not have any preceding illness, suggest thyroiditis, no history of sore throat. She does have thyromegaly on exam to suggest possible underlying autoimmune thyroid disease though TSH receptor antibodies were negative from September 2024. Ultrasound thyroid done 12/07/2024, I reviewed the images myself which showed a right superior 1.3 cm solid isoechoic TR 3 nodule, a right mid lobe 1.2 cm solid hypoechoic TR 3 category nodule. None meet criteria for FNA however I would plan to repeat an ultrasound maybe in 1 year in November 2025. Overall vascularity is increased consistent with autoimmune thyroid disease. Thyroid uptake and scan done 12/21/2024, I reviewed the images myself showed overall increased uptake present diffusely with no hot or cold nodules. Labs repeated 11/07/2024 showed TSH 0.15 which is low, free T4 normal at 1.15, normal total T3 of 105, TSI antibodies undetectable, and TSH receptor antibodies normal, TPO antibodies elevated at 539. She basically has autoimmune thyroid disease, even though TSI and TSH receptor antibodies are undetectable. Patient has symptoms of fatigue which are very bothersome to her but otherwise she does not have any overt symptoms of hyperthyroidism. Heart rate normal. No tremors on exam. Since her repeat thyroid function tests show improvement in TSH at this time we will hold off on prescribing her methimazole. I discussed with her that if she becomes symptomatic or feels worse she can reach out sooner but at this time we will plan to repeat labs in 3 months with follow up at that time. She agrees with this plan. She is done with her 7-month-old, no plans for , no plans for . She has an IUD. Plan: -ordered TSH, free T4, total T3, to be done in 3 months prior to follow up -plan to repeat ultrasound of the thyroid in November 2025 (2) Low TSH level: Code(s): R79.89 - Other specified abnormal findings of blood chemistry Category: Medical Plan: See below Plan See above Orders: Orders Thyroid Stimulating Hormone 10 Weeks E05.90 - Thyrotoxicosis, unspecified without thyrotoxic crisis or storm Triiodothyronine T3 Total 10 Weeks E05.90 - Thyrotoxicosis, unspecified without thyrotoxic crisis or storm Free T4 (Free Thyroxine) 10 Weeks E05.90 - Thyrotoxicosis, unspecified without thyrotoxic crisis or storm Coding Level of Care Code Est Pt Level 3 (96532) Diagnoses Subclinical hyperthyroidism E05.90 Low TSH level R79.89
--- OUTSIDE RECORDS SUMMARY | 2024-12-25 16:49 | XMS_ITS | Encounter Summary ---
Author Organization [facility] Address [address] [place] [address] Phone Care Team Providers Care Teaching Young Name Role Phone Lili Bliss MD Primary Care Provider Unavailabl e Encounter Details Date Type Department Care Team (Late st Contact Info) Description 12/04/2009 Documentation [facility] [place] Family Medicine [address] [place] [address] Family Medicine, Physician [address] [place], [place] [id number] Social History Tobacco Use Types Packs/Day Years [...] on filedocumented in this encounter Care Teams Teaching Young Relationship Specialty Start Date End Date Lili Bliss MD PCP - General 02/26/17 documented as of this encounter
== END 2024-12-25 15:51 | disposition home or self-care (01) ==
LOC: HO.ENCR 15:02
PROVIDERS: PCP Physician Assistant; Visit Provider Student in an Organized Health Care Education/Training Program
DX: E05.90 Thyrotoxicosis, unspecified without thyrotoxic crisis or storm (principal); R79.89 Other specified abnormal findings of blood chemistry
CPT/HCPCS: 99213

== ENCOUNTER → 2024-12-25 15:02 | Outpatient (BNVA) | payer OTHER, SELFPAY | PROVIDERS: PCP Physician Assistant; Visit Provider Student in an Organized Health Care Education/Training Program | DX: E05.90 Thyrotoxicosis, unspecified without thyrotoxic crisis or storm (principal); R79.89 Other specified abnormal findings of blood chemistry | CPT/HCPCS: 99212 ==

== ENCOUNTER 2025-03-20 13:56 | Outpatient (REF) | payer OTHER, SELFPAY ==
--- OUTSIDE RECORDS SUMMARY | 2025-03-20 15:11 | XMS_ITS | Encounter Summary ---
Author Organization [facility] Address [address] [place] [address] Phone Care Team Providers Care Drum Maker Name Role Phone Lili Bliss MD Primary Care Provider Unavailabl e Encounter Details Date Type Department Care Team (Late st Contact Info) Description 02/02/2014 Documentation [facility] [place] Family Medicine [address] [place] [address] Family Medicine, Physician [address] [place], [place] [id number] Social History Tobacco Use Types Packs/Day Years [...] on filedocumented in this encounter Care Teams Drum Maker Relationship Specialty Start Date End Date Lili Bliss MD PCP - General 02/26/17 documented as of this encounter
--- OUTSIDE RECORDS SUMMARY | 2025-03-20 15:11 | XMS_ITS | Encounter Summary ---
Author Organization [facility] Address [address] [place] [address] Phone Care Team Providers Care Streets And Buildings Decorator Name Role Phone Lili Bliss MD Primary Care Provider Unavailabl e Encounter Details Date Type Department Care Team (Late st Contact Info) Description 12/04/2009 [place]ation [facility] [place] [address] [place] [address] Family Medicine, Physician [address] [place], [place] [phone] Social History Tobacco Use Types Packs/Day Years [...] on filedocumented in this encounter Care Teams Streets And Buildings Decorator Relationship Specialty Start Date End Date Lili Bliss MD PCP - General 02/26/17 documented as of this encounter
--- OUTSIDE RECORDS SUMMARY | 2025-03-20 15:11 | XMS_ITS | Encounter Summary ---
Author Organization [facility] Address [address] [place] [address] Phone Care Team Providers Care Cash Management Officer Name Role Phone Lili Bliss MD Primary Care Provider Unavailabl e Encounter Details Date Type Department Care Team (Late st Contact Info) Description 06/22/2010 Documentation [facility] [place] Family Medicine [address] [place] [address] Family Medicine, Physician [address] [place], [place] [address] Social History Tobacco Use Types Packs/Day Years [...] on filedocumented in this encounter Care Teams Cash Management Officer Relationship Specialty Start Date End Date Lili Bliss MD PCP - General 02/26/17 documented as of this encounter
--- OUTSIDE RECORDS SUMMARY | 2025-03-20 15:11 | XMS_ITS | Clinical Summary ---
Author Organization [facility] Address [address] [place] [address] Phone Care Team Providers Care Lawn And Garden Technician Name Role Phone Lili Bliss MD Primary [...] of Deafness, No family history of *Sudden /CA under 55, No family history of *Thrombophilia, [...] 80 06/26/2017 12:20 PM EST Temperature 36.9 C (98.4 F) 06/26/2017 12:20 PM EST Respiratory Rate - - Oxygen Saturation 100% [...] 07/09/1998, Additional history exists Influenza Vaccines (#1) 2025 05/12/20 17, 07/13/2016, 04/17/2015, Additional history exists COVID-19 Vaccine ( season) 2025 Hepatitis B Vaccines Completed 07/09/1997, 02/13/1997, 1996 [...] complete this topic Procedures * Due to [place] [employer] law, this organization might not be sharing sensitive test results. Procedure Name Priority Date/Time Associated Diagnosis Comments CHLAMYDIA AND GONORRHEA, AMPLIFIED Routine 07/22/2015 1:17 PM EST from Last 3 Months or Most Recently Relevant to Health Maintenance Results * Due to [place] state law, this organization might not be sharing sensitive test results. * Chlamydia and Gonorrhoea, Amplified (07/22/2015 1:17 PM EST) Pathologist [facility] URINE CHLAMYDIA AMP PROBE NEGATIVE [facility] Comment: No Chlamydia Trachomatis RNA detected in this patient's sample (REFERENCE RANGE/NORMAL VALUE: NOT DETECTED) URINE GC AMP PROBE NEGATIVE [facility] Comment: No Neisseria Gonorrhoeae RNA detected in this patient's sample (REFERENCE RANGE/NORMAL VALUE: NOT DETECTED) NOTE: This test uses import/export freight forwarder-mediated amplification method to detect rRNA from C.Trachomatis [...] without risk of sexual abuse. Consult the [facility] if needed. Contact phone number . Therapeutic failure or success cannot be determined with the Aptima Combo2 assay since nucleic acid may persist following appropriate antimicrobial therapy. The Centers for Disease Control and Prevention (CDC) recommends confirmatory retesting using culture or a different nucleic acid amplification test when positive results occur, if indicated. Testing performed or reported by [facility], a Service of [facility], [facility] [place] [address] [facility] [id number] Joey Coles MD, PhD, Self Storage Manager 07/22/2015 1:17 PM EST Narrative [facility] - 07/22/2015 1:17 PM EST URINE CHLAMYDIA GC AMP PROBE us Lili Bliss MD LAB MICROBIOLOGY - GENERAL ORDER HEIDI Final Result [facility] [address] [place], [place] [id number], from Last 3 Months or Most Recently Relevant to Health Maintenance Care Teams Lawn And Garden Technician Relationship Specialty Start Date End Date Lili Bliss MD PCP - General 02/26/17
--- OUTSIDE RECORDS SUMMARY | 2025-03-20 15:11 | XMS_ITS | Encounter Summary ---
Author Organization [facility] Address [address] [place] [address] Phone Care Team Providers Care Racecourse Barrier Attendant Name Role Phone Lili Bliss MD Primary Care Provider Unavailabl e Encounter Details Date Type Department Care Team (Late st Contact Info) Description 10/28/2009 Documentation [facility] [place] Medicine [address] [place] [address] Family Medicine, Physician [address] [place], [place] [phone] Social History Tobacco Use Types Packs/Day Years [...] on filedocumented in this encounter Care Teams Racecourse Barrier Attendant Relationship Specialty Start Date End Date Lili Bliss MD PCP - General 02/26/17 documented as of this encounter
--- OUTSIDE RECORDS SUMMARY | 2025-03-20 15:11 | XMS_ITS | Encounter Summary ---
Author Organization [facility] Address [address] [place] [address] [address] [place] [address] Phone Care Team Providers Care Clinical Pharmacy Specialist Name Role Phone Pcp, Unknown Primary Care Provider Niida Nobles FINISH MENDER Primary Care Prov ider Doug Dong MD Unavailable [phone] Darwin Shultz FARM MACHINE OPERATOR Primary Care Provider [phone] Cristy Parikh Primary Care Provider [phone] Encounter Details Date Type Department Care Team (Late st Contact Info) Description 03/31/2023 Procedure Pass [facility], [facility] Scan - [address] [id number] Social History Tobacco Use Types Packs/Day Years Used Date Smoking Tobacco: Never Assessed Education Answer Date Recorded Are you interested in more education? Not on jazmin e 11/14/2022 Are you concerned about learning? Not on file 11/14/2022 No 11/14/2022 No 11/14/2022 Digital Access Answer Date Recorded No 2022 No 2022 Reliable internet access at home? Not on file 2022 Device with a working camera? Not on file Intimate Partner Violence Answer Date R ecorded Are you denied basic needs s uch as food, clothing, or medical care? No 04/01/2023 In the past 12 months have y ou been in a relationship with a person who hurts, threatens, or tries to control you? No 04/01/2023 Are you denied basic needs s uch as food, clothing, or medical care? No 04/01/2023 In the past 12 months have y ou been in a relationship with a person who hurts, threatens, or tries to control you? No 04/01/2023 Comments Unknown Sex and Gender Information Value Date Recorded Sex Assigned at Not on file Legal Sex Female 12:05 PM EDT Gender Identity Not on file Sexual Orientation Not on file documented as of this encounter Functional Status * Calculated C-SSRS Risk Score (Lifetime/Recent) Answer Date of Assessment Author No Risk Indicated 04/01/2023 5:59 PM EDT Telly Hector RN * [place] Suicide Severity Rating Scale (Screener/Recent Self-Report) Question Answer Date of Assessment Author 1. Wish to be (Past 1 Month) No 023 5:59 PM EDT Telly Hector RN 2. Non-Specific Active Suici christofer Thoughts (Past 1 Month) No 04/01/2023 5:59 PM EDT Castillo Hector RN 6. Suicidal Behavior (Lifetime) No 3 5:59 PM EDT Telly Hector RN documented as of this encounter Plan of Treatment Not on file documented as of this encounter Visit Diagnoses Not on filedocumented in this encounter Care Teams Clinical Pharmacy Specialist Relationship Specialty Start Date End Date Pcp, Unknown PCP - General 03/31/23 04/18/23 Nidia Peoples FNP [address] [place] [address] [address] [place] [address] PCP - General 04/19/23 09/20/23 Darwin Shultz NP [address] [place] [address] PCP - General Nurse Practitioner 09/21/23 02/07/25 Cristy Parikh PA [address] [place] [address] [address] [place] [address] PCP - General Physician Licensed Nuclear Operator 02/08/25 Doug Dong MD [address] [place] [address] [email or web address] Pediatric Cardiology 06/17/23 documented as of this encounter Additional Source Comments The information contained in this document represents components of the legal health record. It is not the complete legal health record.[facility]
--- OUTSIDE RECORDS SUMMARY | 2025-03-20 15:11 | XMS_ITS | Encounter Summary ---
Author Organization [facility] Address [address] [place] [address] Phone Care Team Providers Care Heel Top Lift Splitter Name Role Phone Lili Bliss MD Primary Care Provider Unavailabl e Encounter Details Date Type Department Care Team (Late st Contact Info) Description 06/22/2010 Documentation [facility] [place] Family Medicine [address] [place] [address] Family Medicine, Physician [address] [place], [place] [phone] Social History Tobacco Use Types Packs/Day Years [...] on filedocumented in this encounter Care Teams Heel Top Lift Splitter Relationship Specialty Start Date End Date Lili Bliss MD PCP - General 02/26/17 documented as of this encounter
--- OUTSIDE RECORDS SUMMARY | 2025-03-20 15:12 | XMS_ITS | Encounter Summary ---
Author Organization [facility] Address [address] [place] [address] Phone Care Team Providers Care Neuropsychology Medical Consultant Name Role Phone Lili Bliss MD Primary Care Provider Unavailabl e Encounter Details Date Type Department Care Team (Late st Contact Info) Description 12/23/2015 Documentation [facility] [place] Family Medicine [address] [place], [place] [phone] Family Medicine, Physician [address] [place], [place] [address] Social History Tobacco Use Types Packs/Day Years [...] on filedocumented in this encounter Care Teams Neuropsychology Medical Consultant Relationship Specialty Start Date End Date Lili Bliss MD PCP - General 02/26/17 documented as of this encounter
--- OUTSIDE RECORDS SUMMARY | 2025-03-20 15:12 | XMS_ITS | Encounter Summary ---
Author Organization [facility] Address [address] [place] [address] Phone Care Team Providers Care Gas Engine Repairer Name Role Phone Lili Bliss MD Primary Care Provider Unavailabl e Encounter Details Date Type Department Care Team (Late st Contact Info) Description 03/04/[address] [facility] [place] Family Medicine [address] [place] [address] Family Medicine, Physician [address] [place] [address] Social History Tobacco Use Types Packs/Day Years [...] filedocumented in this encounter Care Teams Gas Engine Repairer Relationship Specialty Start Date End Date Lili Bliss MD PCP - General 02/26/17 documented as of this encounter
--- OUTSIDE RECORDS SUMMARY | 2025-03-20 15:12 | XMS_ITS | Encounter Summary ---
Author Organization [facility] Address [address] [place] [address] Phone Care Team Providers Care Chemical Technician Name Role Phone Lili Bliss MD Primary Care Provider Unavailabl e Encounter Details Date Type Department Care Team (Late st Contact Info) Description 03/04/2017 Documentation [facility] [place] Family Medicine [address] [place] [address] Family Medicine, Physician [address] [place] [address] Social History Tobacco Use Types Packs/Day Years [...] on filedocumented in this encounter Care Teams Chemical Technician Relationship Specialty Start Date End Date Lili Bliss MD PCP - General 02/26/17 documented as of this encounter
--- OUTSIDE RECORDS SUMMARY | 2025-03-20 15:12 | XMS_ITS | Encounter Summary ---
Author Organization [employer] Address [address] [place] [address] Care Team Providers Care Corrective Therapy Aide Teacher Name Role Phone Unavailable Primary Care Provider Unavailabl e Encounter Details Date Type Department Care Team (Latest Contact Info) Description 08/09/2018 Abstract [facility] CONVERSION[facility] Dental, Provider, DDS Social History [...]
--- OUTSIDE RECORDS SUMMARY | 2025-03-20 15:12 | XMS_ITS | Encounter Summary ---
Author Organization [facility] Address [address] [place] [address] Phone Care Team Providers Care [place] Name Role Phone Lili Bliss MD Primary Care Provider Unavailabl e Encounter Details Date Type Department Care Team (Late st Contact Info) Description 03/04/2017 Conversion Encounter [facility] - [address] [address] Social History Tobacco Use Types Packs/Day Years [...] on filedocumented in this encounter Care Teams [place] Relationship Specialty Start Date End Date Lili Bliss MD PCP - General 02/26/17 documented as of this encounter
--- OUTSIDE RECORDS SUMMARY | 2025-03-20 15:12 | XMS_ITS | Encounter Summary ---
Author Organization [facility] Address [address] [place] [address] Phone Care Team Providers Care Trailhead Maintenance Worker Name Role Phone Lili Bliss MD Primary Care Provider Unavailabl e Encounter Details Date Type Department Care Team (Late st Contact Info) Description 03/04/2017 Documentation [facility] [address] [place] [address] Family Medicine, Physician [address] [place] [address] Social History Tobacco Use Types Packs/Day Years [...] on filedocumented in this encounter Care Teams Trailhead Maintenance Worker Relationship Specialty Start Date End Date Lili Bliss MD PCP - General 02/26/17 documented as of this encounter
--- OUTSIDE RECORDS SUMMARY | 2025-03-20 15:12 | XMS_ITS | Clinical Summary ---
Author Organization [facility] Address [address] [place] [address] [place] [address] Phone Care Team Providers Care Burlesque Dancer Name Role Phone Doug Dong MD Unavailable [phone] Cristy Parikh Primary Care Provider [phone] Allergies Active Allergy Reactions Criticality Noted Date Comments Fluconazole Hives 06/15/2023 Medications No known medications Active Problems Problem Noted Date Diagnosed Date Aortic coarctation 06/15/2023 Bicuspid aortic valve 06/15/2023 Encounters Date Type Department Care Team Description 02/08/2025 11:43 AM EDT - 02/08/2025 2:43 PM EDT Emergency [facility] [address] [place] [address] Ismael Buchanan MD Noone, Caleb J, MD Discharge Disposition: Home or Self Care 02/08/2025 10:20 AM EDT Office Visit [facility] [address] [address] Bety Hathaway CNP Chest pain, unspecified type (Primary Dx) from Last 3 Months Immunizations Immunization Administration Dates Next Due COVID-19 (Pre-05/10) Pfizer Vaccine, mRNA, PF 01/16/2022,12/01/2021,10/13/2020,2020 Hepatitis B Adult 12/01/2021,03/14/2020,02/13/20 20 Influenza Quadrivalent Prese rvative Free IM 04/23/2022 MMR 02/18/2001,12/31/1997 Tdap 11/10/2019 Varicella 07/27/2008,11/30/1997 Family History Medical History Relation Comments Congenital heart disease Neg Hx Social History Tobacco Use Types Packs/Day Years Used Date Smoking Tobacco: Never Smokeless Tobacco: Former Education Answer Date Recorded Are you interested [...] as food, clothing, or medical care? No 02/08/2025 In the past 12 months have y ou been in a relationship with a person who hurts, threatens, or tries to control you? No 02/08/2025 Are you denied basic needs s uch as food, clothing, or medical care? No 02/08/2025 In the past 12 months have y ou been in a relationship with a person who hurts, threatens, or tries to control you? No 02/08/2025 Comments Unknown Sex and Gender Information Value Date Recorded Sex Assigned at Not on file Legal Sex Female 12:05 PM EDT Gender Identity Not on file Sexual Orientation Not on file Last Filed Vital Signs Vital Sign Reading Time Taken Comments Blood Pressure 111/64 02/08/2025 2:26 PM EDT Pulse 84 02/08/2025 2:26 PM EDT Temperature 36.5 C (97.7 F) 02/08/2025 2:26 PM EDT Respiratory Rate 16 02/08/2025 2:26 PM EDT Oxygen Saturation 100% 02/08/2025 2:26 PM EDT Inhaled Oxygen Concentration - - Weight 81.2 kg (179 lb) 02/08/2025 11:12 AM EDT Height 167.6 cm (5' 6 ) 02/08/2025 11:12 AM EDT Body Mass Index 28.89 02/08/2025 11:12 AM EDT Plan of Treatment Health Maintenance Due Date Last Done Comments DEPRESSION SCREENING 2008 HEPATITIS C SCREENING 2014 HIV ONE-TIME SCREENING (18-65 YEARS) 2014 HEPATITIS A VACCINES (2 of 2 - 2-dose series) 07/06/2015 01/04/2015 PAP SMEAR 2017 COVID-19 VACCINE (2023- season) 2024 01/16/2022, 12/01/2021, 12/01/2021, Additional history exists Adult Td,Tdap Booster 01/17/2034 01/18/2024 , 11/10/2019, 05/18/2008 MENINGOCOCCAL VACCINES (ACWY) Completed 01/04/2015 SMOKING STATUS SCREENING (Once After 26 Yrs) Completed 02/08/2025 HIB VACCINES Aged Out No longer eligi ble based on patient's age to complete this topic MENINGOCOCCAL VACCINES (B) Aged Out N o longer eligible based on patient's age to complete this topic PNEUMOCOCCAL VACCINES (0-49 years) Aged Out No longer eligible based on patient's age to complete this topic Medical Devices Not on file Procedures Procedure Name Priority Date/Time Associated Diagnosis Comments XR CHEST PA AND LATERAL 2 VIEWS Routine 02/08/2025 12:51 PM EDT D-DIMER STAT 02/08/2025 12:28 PM EDT TROPONIN STAT 02/08/2025 12:28 PM EDT URINE HCG STAT 02/08/2025 12:09 PM EDT TROPONIN STAT 02/08/2025 11:25 AM EDT BASIC METABOLIC PANEL STAT 02/08/2025 11:25 AM EDT CBC AND DIFFERENTIAL STAT 02/08/2025 11:25 AM EDT ECG 12-LEAD STAT 02/08/2025 11:16 AM EDT from Last 3 Months Results * XR CHEST PA AND LATERAL 2 VIEWS (02/08/2025 12:51 PM EDT) Anatomical Region Laterality Modality Chest Computed Radiogr aphy 02/08/2025 2:17 PM EDT Impressions 02/08/2025 2:18 PM EDT No acute abnormality. Narrative 02/08/2025 2:18 PM EDT XR CHEST PA AND LATERAL 2 VIEWS Referring clinician's provided indication for this examination in [facility]: Pain; chest pressure COMPARISON: XR CHEST PA AND LATERAL 2 VIEWS FINDINGS: Devices/Tubes/Lines: None. Lungs: No focal consolidation or pulmonary edema. Pleura: No pleural effusion or pneumothorax. Heart/Mediastinum: Normal heart and mediastinum. Bones/Soft Tissues: Mild dextroscoliotic curvature of the thoracolumbar spine. Procedure Note Anders Pennington MD - 02/08/2025 XR CHEST PA AND LATERAL 2 VIEWS Referring clinician's provided indication for this examination in [facility]:Pain; chest pressure COMPARISON: XR CHEST PA AND LATERAL 2 VIEWS FINDINGS: Devices/Tubes/Lines: None. Lungs: No focal consolidation or pulmonary edema. Pleura: No pleural effusion or pneumothorax. Heart/Mediastinum: Normal heart and mediastinum. Bones/Soft Tissues: Mild dextroscoliotic curvature of the thoracolumbarspine. IMPRESSION: No acute abnormality. Ismael Buchanan MD IM XR CHEST Final Re sult * D-dimer (02/08/2025 12:28 PM EDT) D-DIMER 394 <500 ng/mL FEU [facility] Comment:In patients with low to moderate pre-test probability scores for VTE (PE or DVT), a D-Dimer cut-off less than 500 ng/mL (FEU) has a negative predictive value (NPV) of 97 to 100%. Blood 02/08/2025 12:2 8 PM EDT 02/08/2025 12:40 PM EDT us Ismael Buchanan MD LAB BLOOD ORDERABLES Fin al Result Performing Organization Address [facility] Co de Phone Number [address] [address] * Troponin (02/08/2025 12:28 PM EDT) Only the most recent of2 resultswithin the time period is included. Troponin-T, HS Gen5 <6 0 - 9 ng/L [facility] Blood 02/08/2025 12:2 8 PM EDT 02/08/2025 12:48 PM EDT us Ismeal Buchanan MD LAB BLOOD ORDERABLES Fin al Result Performing Organization Address [facility] Co de Phone Number [address] [address] * HCG, urine (02/08/2025 12:09 PM EDT) URINE TEST Negative Negative [facility] Urine (Urine) 02/08/2025 12: 09 PM EDT 02/08/2025 12:16 PM EDT us Ismael Buchanan MD URINE ORDERABLES Final R esult Performing Organization Address [facility] Co de Phone Number [address] [address] * (ABNORMAL) CBC and differential (02/08/2025 11:25 AM EDT) WBC 6.33 4.00 - 11.00 K/uL [facility] RBC 4.93 4.00 - 5.20 M/uL [facility] HGB 13.1 12.0 - 16.0 g/dL [facility] HCT 40.6 36.0 - 46.0 % [facility] PLT 193 150 - 450 K/uL [facility] MCV 82.4 80.0 - 100.0 fL [facility] MCH 26.6(L) 27.0 - 31.0 pg [facility] MCHC 32.3 32.0 - 36.0 g/dL [facility] RDW 13.5 11.5 - 14.5 % [facility] MPV 10.4 8.4 - 12.0 fL [facility] NRBC 0.00 0.00 /100 WBCs [facility] ABSOLUTE NRBC 0.00 0.00 K/uL [facility] DIFF METHOD Auto [facility] NEUTS 71.9 48.0 - 76.0 % [facility] LYMPHS 19.3 18.0 - 41.0 % [facility] MONOS 6.2 4.0 - 11.0 % [facility] EOS 2.1 0.0 - 5.0 % [facility] BASOS 0.3 0.0 - 1.5 % [facility] Granulocytes, immature (%) 0.2 0.0 - 0.9 % [facility] ABSOLUTE NEUTS 4.56 1.92 - 7.60 K/uL [facility] ABSOLUTE LYMPHS 1.22 0.72 - 4.10 K/uL [facility] ABSOLUTE MONOS 0.39 0.16 - 1.10 K/uL [facility] ABSOLUTE EOS 0.13 0.00 - 0.50 K/uL [facility] ABSOLUTE BASOS 0.02 0.00 - 0.15 K/uL [facility] Granulocytes, immature 0.01 0.00 - 0.09 K/uL [facility] Blood 02/08/2025 11:2 5 AM EDT 02/08/2025 11:34 AM EDT us Ismeal Buchanan MD LAB BLOOD ORDERABLES Fin al Result [facility] [address] [place] [address] * Basic metabolic panel (02/08/2025 11:25 AM EDT) SODIUM 137 133 - 146 mmol/L [facility] CHLORIDE 104 96 - 108 mmol/L [facility] POTASSIUM 3.8 3.3 - 5.1 mmol/L [facility] CO2 23 21 - 35 mmol/L [facility] BUN 9 6 - 19 mg/dL [facility] CREATININE 0.60 0.5 - 1.5 mg/dL [facility] GLUCOSE 88 70 - 99 mg/dL [facility] CALCIUM 9.0 8.4 - 10.3 mg/dL [facility] EGFR >120 >59 mL/min/1.7 3m2 [facility] Comment:Estimated glomerular filtration rate calculated using the CKD-EPI refit equation. ANION GAP 14 10 - 20 mmol/L [facility] Blood 02/08/2025 11:2 5 AM EDT 02/08/2025 11:34 AM EDT us Ismael Buchanan MD LAB BLOOD ORDERABLES Fin al Result Performing Organization Address [facility] Co de Phone Number [facility] [address] [place] [address] * ECG 12-LEAD (02/08/2025 11:16 AM EDT) Ventricular Rate EKG/MIN 69 BPM [facility] Atrial Rate 69 BPM [facility] ID Interval 174 ms [facility] QRS Duration 74 ms [facility] QT Interval 374 ms [facility] QTC Interval 400 ms [facility] P [place] 55 degrees [facility] R Wave [place] 49 degrees [facility] T Wave [place] 36 degrees [facility] 02/08/2025 11:1 6 AM EDT 02/08/2025 11:49 AM EDT Narrative [facility] - 02/08/2025 11:49 AM EDT Sinus rhythm with occasional Premature ventricular complexes Otherwise normal ECG When compared with ECG of 31-Mar-2023 10:32, Premature ventricular complexes are now Present Confirmed by Hilton Daugherty ([id number]) on 02/08/2025 11:49:55 AM us Ismael Buchanan MD ECG ORDERABLES Final Re sult Performing Organization Address City/[facility] Co de Phone Number [facility] from Last 3 Months Insurance [facility] ACO O Member Subscriber Plan / Payer (Ef fective 2023-Present) Name:Tereza Strickland Relation to Subscriber:Self Name:Tereza Strickland Payer ID:Not on file Type:O Address: [place] [id number] [place] [address] ACO HMO [facility] [place] [address] [place] [address] [place] [address] [place] [address] ACO HMO ACO ACO HMO ACO [address] [facility] Care Teams Burlesque Dancer Relationship Specialty Start Date End Date Cristy Parikh PA [address] [place] [phone] PCP - General Physician Fitter'S Assistant 02/08/25 Doug Dong MD [address] [place] [phone] [email or web address] Pediatric Cardiology 06/17/23 Additional Source Comments The information contained in this document represents components of the legal health record. It is not the complete legal health record.[facility]
--- OUTSIDE RECORDS SUMMARY | 2025-03-20 15:12 | XMS_ITS | Clinical Summary ---
Author Organization [employer] Address [address] [place] [address] [address] [place] [address] Care Team Providers Care Pre Sales Systems Engineer Name Role Phone Unavailable Primary Care Provider [...] Date Last Done Comments Depression Screening 1996 Disability Screening 1996 Alcohol/Substance Use Screening 2008 Tobacco Screening 2008 Family Planning (PISQ) 12/16/2011 HPV Vaccines (1 - 3-dose series) 12/16/2011 DTaP/Tdap/Td Vaccines (1 - Tdap) 12/16/2015 Hepatitis B Vaccines (1 of 3 - 19+ 3-dose series) 12/16/2015 Pap Smear 2017 COVID-19 Vaccine (1 - 2023-2 5 season) 2024 Influenza Vaccine (#1) 2025 Zoster Vaccines (1 of 2) 2046 RSV [...] patient's age to complete this topic Meningococcal B Vaccine Aged Out No l onger eligible based on patient's age to complete this topic Meningococcal Vaccine Aged Out No anabel silvestre eligible based on patient's age to complete this topic Pneumococcal Vaccine: Pediat rics (0 to 5 Years) and At-Risk Patients (6 to 49) Years Aged Out No longer eligible b ased on patient's age to complete this topic RSV under 20 months Aged Out No longe r eligible based on patient's age to complete this topic Rotavirus Vaccines Aged Out No longer eligible based on patient's age to complete this topic
--- OUTSIDE RECORDS SUMMARY | 2025-03-20 15:12 | XMS_ITS | Encounter Summary ---
Author Organization [facility] Address [address] [place] [phone] Phone Care Team Providers Care Pupil Personnel Worker Name Role Phone Lili Bliss MD Primary Care Provider Unavailabl e Encounter Details Date Type Department Care Team (Late st Contact Info) Description 02/11/2017 Documentation [facility] Family Medicine [address] [place] [address] Family Medicine, Physician [address] [place] [address] Social History Tobacco Use Types Packs/Day Years [...] on filedocumented in this encounter Care Teams Pupil Personnel Worker Relationship Specialty Start Date End Date Lili Bliss MD PCP - General 02/26/17 documented as of this encounter
[2025-03-20 15:30] LABS: Free T4 (Free Thyroxine) 1.17 ng/dL (0.71-1.85); Thyroid Stimulating Hormone 1.33 uIU/mL (0.32-4.0)
== END 2025-03-20 13:57 | disposition home or self-care (01) ==
LOC: HO.LAB 13:56
PROVIDERS: PCP Physician Assistant; Visit Provider Student in an Organized Health Care Education/Training Program
DX: E05.90 Thyrotoxicosis, unspecified without thyrotoxic crisis or storm (principal)
CPT/HCPCS: 36415; 84439; 84443; 84480

== ENCOUNTER 2025-03-26 13:30 | Outpatient (AMB) | payer OTHER, SELFPAY ==
[2025-03-26 13:33] VITALS: BP 106/64; PULSE 81; O2SAT 100; BMI 29.5
--- NOTE | 2025-03-26 13:33 | MHC.OFFVIS ---
Vital Signs 03/26/25 13:33 Height 5 ft 6 in Weight 182 lb 15.739 oz BMI 29.5 BP 106/64 Blood Pressure Location Lt brachial Position Sitting Pulse 81 Pulse Source Pulse Oximeter Pulse Oximetry (%) 100 Oxygen Delivery Method Room Air Intake Visit Reasons: Low TSH level Intake Note: Patient present today for Low TSH level office visit. Allergies apple Allergy (Severe, Verified 03/26/25 13:37) hives fluconazole Allergy (Severe, Verified 03/26/25 13:37) hives HPI Comments Details: 29-year-old female here today for fup of subclinical hyperthyroidism. 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 Chart review shows that labs from 09/29/2024 showed TSH was low at 0.05, free T4 normal at 1.42. Labs repeated 10/02/2024 again showed low TSH of 0.03, free T4 normal at 1.52. Total T3 also normal at 162. Previously she has had normal thyroid labs in 2022. No preceding viral illness No Contrast exposure Patient currently denies heat or cold intolerance, diarrhea or constipation, palpitation, changes in appearance of eyes or vision changes, tremors, increased diaphoresis or dry skin. ? LMP:10/31/24, periods every month , has IUD , feels periods now lasting more days Some hair loss post , 7 months post , improving now No weight loss , weight stable Does complain of anxiety Tiredness and low energy , does wake up in the middle of the night Patient denies any difficulty swallowing, pain on swallowing or voice changes or difficulty breathing. Patient denies any history of childhood neck radiation. Denies having ever used lithium, amiodarone or biotin supplements. Patient denies any family history of thyroid cancer . Maternal cousin has thyroid disease. 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 None meet criteria for FNA however I would plan to repeat an ultrasound maybe in 1 year in November 2025. Overall vascularity is increased. Thyroid uptake and scan done 12/21/2024, I reviewed the images myself showed overall increased uptake present diffusely with no hot or cold nodules. Labs repeated 11/07/2024 showed TSH 0.15 which is low, free T4 normal at 1.15, normal total T3 of 105, TSI antibodies undetectable, and TSH receptor antibodies normal, TPO antibodies elevated at 539. Interval history 03/20/2025: Showed normal TSH, free T4, total T3 Physical exam General: sitting comfortably in no acute distress HEENT: normocephalic/atraumatic,moist oral mucosa, no exophthalmos, no lid lag Neck: supple, thyromegaly noted Cardiac: normal heart sounds Pulm: normal breath sounds B/L, no added breath sounds Abd: not distended, no tenderness Extremities: no edema, no signs of myxedema, no tremor today Neuro: AAO x3, Speech: normal, no facial droop, moving all 4 extremities Laboratory Tests 04/16/23 09/29/24 10/02/24 11:20 13:25 13:49 TSH 0.51 0.07 L 0.03 L Free T4 1.42 1.52 Total T3 162 Laboratory Tests 10/10/24 14:14 TSH Receptor Ab 1.71 Laboratory Tests 10/10/24 11/07/24 14:14 15:48 TSH 0.15 L Free T4 1.15 Total T3 105 Thyroid Stim Immunoglob <89 Thyroid Peroxidase Ab 539 H TSH Receptor Ab 1.71 Laboratory Tests 03/20/25 14:17 TSH 1.33 Free T4 1.17 Total T3 112 EXAMINATION: NM THYROID IMAGING AND UPTAKE 12/21/24 CLINICAL INFORMATION: E05.90 - Thyrotoxicosis, unspecified without thyrotoxic crisis or storm COMPARISON: Correlation is made with a thyroid ultrasound dated 12/07/2024. TECHNIQUE: Following the oral administration of 282 microcuries of I-123 sodium iodide, thyroid uptake was performed and expressed as a percentage of the administrated dose. Gamma scintillation camera images of the thyroid in the anterior and right and left anterior oblique views were obtained using a pinhole collimator following the administration of 10 mCi Tc-99m pertechnetate. FINDINGS: There is a homogeneous distribution of activity throughout both thyroid lobes. There is a prominent pyramid middle lobe visualized. No discrete hot or cold abnormalities are identified. The uptake is 35.55% at 2.73 hours and 62.67% at 24 hours. NM/NM thyroid w uptake IMPRESSION: Markedly elevated thyroid uptake at 3 and 24 hours with visualization of a prominent pyramidal lobe. Findings are compatible with Graves' disease. Electronically signed by: Anders Peterson MD 12/22/2024 12:03 PM EDT RP EXAMINATION: US THYROID 12/07/24 HISTORY: E05.90 - Thyrotoxicosis, unspecified without thyrotoxic crisis or storm TECHNIQUE: Real-time grayscale ultrasound imaging was performed and images were reviewed. COMPARISON: Correlation is made with a chest CT dated 06/29/2023. FINDINGS: SIZE: The right thyroid lobe measures 5.4 x 2.3 x 2.2 cm. The left thyroid lobe measures 4.9 x 1.5 x 2.0 cm. The isthmus measures 5 mm. FLOW: Flow to the gland is increased. ECHOGENICITY: The echotexture of the gland is homogeneous. NODULES: Right-sided thyroid nodules are noted as described below: Nodule #: 1 Location: Right upper pole measuring 1.3 x 0.8 x 1.2 cm. Shape: Wider than tall (0 points) Margins: Smooth (0 points) Echotexture: Isoechoic (1 point) Composition: Solid (2 points) Calcifications: None (0 points) Total points: 3 TIRADS: TR3: Mildly suspicious. Nodule #: 2 Location: Midportion of the right thyroid lobe measuring 1.2 x 0.8 x 1.0 cm. Shape: Wider than tall (0 points) Margins: Smooth (0 points) Echotexture: Hyperechoic (1 point) Composition: Solid (2 points) Calcifications: None (0 points) Total points: 3 TIRADS: TR3: Mildly suspicious. US/US thyroid IMPRESSION: Mildly suspicious right-sided nodules as described. According to ACR TI-RADS criteria below, no additional workup is required. [facility], [facility] Medical History (Updated 03/26/25 @ 13:42 by Barbara Dorantes MD) Multinodular goiter (nontoxic) Subclinical hyperthyroidism Pulmonary embolism Tiredness Stiffness of right knee Immunization series complete Anal fissure Bloody stools Hemorrhoids Surgical History History of excision of pilonidal cyst History of wisdom tooth extraction History of removal of cyst H/O heart surgery Family History Father Asthma Allergies Mother Anemia Hypertension Maternal Grandmother Hypertension Multiple myeloma Paternal Grandfather Hypertension Prostate cancer Paternal Grandmother Chronic mental illness Other Mental health disorder Social History Housing: House Alcohol intake: current Alcohol intake frequency: holidays/special occasions only Alcohol type: beer Patient Tobacco Use Status: Never used Tobacco e-Cigarette/Vaping Use: Never Used Second Hand Smoke Exposure: No service: No Current occupational status: employed 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 Labs repeated 10/02/2024 again showed low TSH of 0.03, free T4 normal at 1.52. Total T3 also normal at 162. Previously she has had normal thyroid labs in 2022. She does not have any preceding illness, suggest thyroiditis, no history of sore throat. She does have thyromegaly on exam to suggest possible underlying autoimmune thyroid disease though TSH receptor antibodies were negative from September 2024. Ultrasound thyroid done 12/07/2024, I reviewed the images myself which showed a right superior 1.3 cm solid isoechoic TR 3 nodule, a right mid lobe 1.2 cm solid hypoechoic TR 3 category nodule. None meet criteria for FNA however I would plan to repeat an ultrasound maybe in 1 year in November 2025. Overall vascularity is increased consistent with autoimmune thyroid disease. Thyroid uptake and scan done 12/21/2024, I reviewed the images myself showed overall increased uptake present diffusely with no hot or cold nodules. Labs repeated 11/07/2024 showed TSH 0.15 which is low, free T4 normal at 1.15, normal total T3 of 105, TSI antibodies undetectable, and TSH receptor antibodies normal, TPO antibodies elevated at 539. She basically has autoimmune thyroid disease, even though TSI and TSH receptor antibodies are undetectable. Patient has symptoms of fatigue which are very bothersome to her but otherwise she does not have any overt symptoms of hyperthyroidism. Heart rate normal. No tremors on exam. Labs done most recently from March 2025 shows normal TSH, free T4 and total T3. Since her repeat thyroid function tests show resolution, this is reassuring. I discussed with her that if she becomes symptomatic or feels worse she can reach out sooner but at this time we will plan to repeat labs in 8-10 months prior to her next follow up. She agrees with this plan. She is done with her 7-month-old, no plans for , no plans for . She has an IUD. Plan: -ordered TSH, free T4, total T3, to be done in November 2025 prior to follow up (2) Low TSH level: Code(s): R79.89 - Other specified abnormal findings of blood chemistry Category: Medical Plan: See below (3) Multinodular goiter (nontoxic): Code(s): E04.2 - Nontoxic multinodular goiter Category: Medical Plan: No family history of thyroid cancer, no personal history of head or neck radiation Ultrasound thyroid done 12/07/2024, I reviewed the images myself which showed a right superior 1.3 cm solid isoechoic TR 3 nodule, a right mid lobe 1.2 cm solid hypoechoic TR 3 category nodule. None meet criteria for FNA however I would plan to repeat an ultrasound maybe in 1 year in November 2025. Overall vascularity is increased. Plan: -ordered ultrasound of the thyroid to be done prior to follow up in November 2025 Plan See above Orders: Orders US thyroid 11/19/25 E04.2 - Nontoxic multinodular goiter Thyroid Stimulating Hormone 11/19/25 E04.2 - Nontoxic multinodular goiter, E05.90 - Thyrotoxicosis, unspecified without thyrotoxic crisis or storm Free T4 (Free Thyroxine) 11/19/25 E04.2 - Nontoxic multinodular goiter, E05.90 - Thyrotoxicosis, unspecified without thyrotoxic crisis or storm Triiodothyronine T3 Total 11/19/25 E04.2 - Nontoxic multinodular goiter, E05.90 - Thyrotoxicosis, unspecified without thyrotoxic crisis or storm Patient Instructions: Do ultrasound of the thyroid in early November 2025 prior to your next follow up with me, someone will call you to schedule the US Do thyroid blood work a few days prior to your next follow up in late November 2025 Coding Level of Care Code Est Pt Level 3 (72385) Diagnoses Subclinical hyperthyroidism E05.90 Low TSH level R79.89 Multinodular goiter (nontoxic) E04.2
--- OUTSIDE RECORDS SUMMARY | 2025-03-26 15:45 | XMS_ITS | Encounter Summary ---
Author Organization [facility] Address [address] [place] [address] Phone Care Team Providers Care Mva Reactor Operator Name Role Phone Lili Bliss MD Primary Care Provider Unavailabl e Encounter Details Date Type Department Care Team (Late st Contact Info) Description 12/04/2009 Documentation [facility] [place] Family Medicine [address] [place] [address] Family Medicine, Physician [address] [place], [place] [id number] Social History Tobacco Use Types Packs/Day Years [...] on filedocumented in this encounter Care Teams Mva Reactor Operator Relationship Specialty Start Date End Date Lili Bliss MD PCP - General 02/26/17 documented as of this encounter
--- OUTSIDE RECORDS SUMMARY | 2025-03-26 15:45 | XMS_ITS | Encounter Summary ---
Author Organization [facility] Address [address] [place] [address] Phone Care Team Providers Care Spacecraft Systems Engineer Name Role Phone iLli Bliss MD Primary Care Provider Unavailabl e Encounter Details Date Type Department Care Team (Late st Contact Info) Description 03/04/2017 Documentation [facility] [place] [address] [place] [address] Family Medicine, Physician [address] [place] [address] Social History Tobacco Use Types Packs/Day Years [...] on filedocumented in this encounter Care Teams Spacecraft Systems Engineer Relationship Specialty Start Date End Date Lili Bliss MD PCP - General 02/26/17 documented as of this encounter
--- OUTSIDE RECORDS SUMMARY | 2025-03-26 15:45 | XMS_ITS | Clinical Summary ---
Author Organization [facility] Address [address] [place] [address] [place] [address] Phone Care Team Providers Care Resistor Inspector Name Role Phone Doug Dong MD Unavailable [phone] Cristy Parikh Primary Care Provider [phone] Allergies Active Allergy Reactions Criticality Noted Date Comments Fluconazole Hives 06/15/2023 Medications No known medications Active Problems Problem Noted Date Diagnosed Date Aortic coarctation 06/15/2023 Bicuspid aortic valve 06/15/2023 Encounters Date Type Department Care Team Description 02/08/2025 11:43 AM EDT - 02/08/2025 2:43 PM EDT Emergency [facility] [address] [place] [address] Ismael Buchanan MD Noone, Caleb J, MD Discharge Disposition: Home or Self Care 02/08/2025 10:20 AM EDT Office Visit [facility] [address] [address] Bety Hathaway CNP Chest pain, unspecified type [...] 2-dose series) 07/06/2015 01/04/2015 PAP SMEAR 2017 INFLUENZA VACCINE (#1) 2025 , 05/02/2023, 04/23/2022, Additional history exists COVID-19 VACCINE ( season) 2025 01/16/2022, 12/01/2021, 12/01/2021, Additional history exists Adult [...] clinician's provided indication for this examination in [facility]: Pain; chest pressure COMPARISON: XR CHEST PA AND LATERAL 2 VIEWS FINDINGS: Devices/Tubes/Lines: None. Lungs: No focal consolidation or pulmonary edema. Pleura: No pleural effusion or pneumothorax. Heart/Mediastinum: Normal heart and mediastinum. Bones/Soft Tissues: Mild dextroscoliotic curvature of the thoracolumbar spine. Procedure Note Anders Pennington MD - 02/08/2025 XR CHEST PA AND LATERAL 2 VIEWS Referring clinician's provided indication for this examination in [facility]:Pain; chest pressure COMPARISON: XR CHEST PA AND LATERAL 2 VIEWS FINDINGS: Devices/Tubes/Lines: None. Lungs: No focal consolidation or pulmonary edema. Pleura: No pleural effusion or pneumothorax. Heart/Mediastinum: Normal heart and mediastinum. Bones/Soft Tissues: Mild dextroscoliotic curvature of the thoracolumbarspine. IMPRESSION: No acute abnormality. us Ismael Buchanan MD IMG XR CHEST Final Re sult * D-dimer (02/08/2025 12:28 PM EDT) D-DIMER 394 <500 ng/mL FEU [facility] Comment:In patients with low to moderate pre-test probability scores for VTE (PE or DVT), a D-Dimer cut-off less than 500 ng/mL (FEU) has a negative predictive value (NPV) of 97 to 100%. Blood 02/08/2025 12:2 8 PM EDT 02/08/2025 12:40 PM EDT us Ismael Buchanan MD LAB BLOOD ORDERABLES Fin al Result Performing Organization Address [facility]/ZIP Co de Phone Number [address] [address] * Troponin (02/08/2025 12:28 PM EDT) Only the most recent of2 resultswithin the time period is included. Troponin-T, HS Gen5 <6 0 - 9 ng/L [facility] Blood 02/08/2025 12:2 8 PM EDT 02/08/2025 12:48 PM EDT us Ismael Buchanan MD LAB BLOOD ORDERABLES Fin al Result Performing Organization Address [facility] Phone Number [address] [address] * HCG, urine (02/08/2025 12:09 PM EDT) URINE TEST Negative Negative [facility] Urine (Urine) 02/08/2025 12: 09 PM EDT 02/08/2025 12:16 PM EDT us Ismael Buchanan MD URINE ORDERABLES Final R esult Performing Organization Address [facility] Co de Phone Number [address] [address] * (ABNORMAL) CBC and differential (02/08/2025 11:25 AM EDT) WBC 6.33 4.00 - 11.00 K/uL [facility] RBC 4.93 4.00 - 5.20 M/uL [facility] HGB 13.1 12.0 - 16.0 g/dL [facility] HCT 40.6 36.0 - 46.0 % [facility] PLT 193 150 - 450 K/uL [facility] MCV 82.4 80.0 - 100.0 fL [facility] MCH 26.6(L) 27.0 - 31.0 pg [facility] MCHC 32.3 32.0 - 36.0 g/dL [facility] RDW 13.5 11.5 - 14.5 % [facility] MPV 10.4 8.4 - 12.0 fL [facility] NRBC 0.00 0.00 /100 WBCs [facility] ABSOLUTE NRBC 0.00 0.00 K/uL [facility] DIFF METHOD Auto [facility] NEUTS 71.9 48.0 - 76.0 % [facility] LYMPHS 19.3 18.0 - 41.0 % [facility] MONOS 6.2 4.0 - 11.0 % [facility] EOS 2.1 0.0 - 5.0 % [facility] BASOS 0.3 0.0 - 1.5 % [facility] Granulocytes, immature (%) 0.2 0.0 - 0.9 % [facility] ABSOLUTE NEUTS 4.56 1.92 - 7.60 K/uL [facility] ABSOLUTE LYMPHS 1.22 0.72 - 4.10 K/uL [facility] ABSOLUTE MONOS 0.39 0.16 - 1.10 K/uL [facility] ABSOLUTE EOS 0.13 0.00 - 0.50 K/uL [facility] ABSOLUTE BASOS 0.02 0.00 - 0.15 K/uL [facility] Granulocytes, immature 0.01 0.00 - 0.09 K/uL [facility] Blood 02/08/2025 11:2 5 AM EDT 02/08/2025 11:34 AM EDT us Ismael Buchanan MD LAB BLOOD ORDERABLES Fin al Result [facility] [address] [place] [address] * Basic metabolic panel (02/08/2025 11:25 AM EDT) SODIUM 137 133 - 146 mmol/L [facility] CHLORIDE 104 96 - 108 mmol/L [facility] POTASSIUM 3.8 3.3 - 5.1 mmol/L [facility] CO2 23 21 - 35 mmol/L [facility] BUN 9 6 - 19 mg/dL [facility] CREATININE 0.60 0.5 - 1.5 mg/dL [facility] GLUCOSE 88 70 - 99 mg/dL [facility] CALCIUM 9.0 8.4 - 10.3 mg/dL [facility] EGFR >120 >59 mL/min/1.7 3m2 [facility] Comment:Estimated glomerular filtration rate calculated using the CKD-EPI refit equation. ANION GAP 14 10 - 20 mmol/L [facility] Blood 02/08/2025 11:2 5 AM EDT 02/08/2025 11:34 AM EDT us Ismael Buchanan MD LAB BLOOD ORDERABLES Fin al Result Performing Organization Address City/[facility]/ZIP Co de Phone Number [address] [address] * ECG 12-LEAD (02/08/2025 11:16 AM EDT) Ventricular Rate EKG/MIN 69 BPM [facility] Atrial Rate 69 BPM [facility] MO Interval 174 ms [facility] QRS Duration 74 ms [facility] QT Interval 374 ms [facility] QTC Interval 400 ms [facility] P Friend 55 degrees [facility] R Wave Friend 49 degrees [facility] T Wave Friend 36 degrees [facility] 02/08/2025 11:1 6 AM EDT 02/08/2025 11:49 AM EDT Narrative [facility] - 02/08/2025 11:49 AM EDT Sinus rhythm with occasional Premature ventricular complexes Otherwise normal ECG When compared with ECG of 31-Mar-2023 10:32, Premature ventricular complexes are now Present Confirmed by Hilton Daugherty ([id number]) on 02/08/2025 11:49:55 AM us Ismael Buchanan MD ECG ORDERABLES Final Re sult Performing Organization Address City/[facility]/ZIP Co de Phone Number [facility] from Last [address] [place] [address] [place] [place] [address] HMO ACO ACO ACO Member Subscriber Plan / Payer (Ef fective 2022-Present) Name:Tereza Strickland Relation to Subscriber:Self Name:Tereza Strickland Payer ID:[id number] Group ID:[id number] Type:Medicaid [address] [place] [address] ACO ACO Member Subscriber Plan / Payer (Ef fective 2022-Present) Name:Tereza Strickland Relation to Subscriber:Self Name:Tereza Strickland Payer ID:[id number] Group ID:[id number] Type:Medicaid Address: [address] [place] [address] [address] [facility] [place] Address: [address] [place] [address] [facility] [place] [facility] Address: [address] [address] Care Teams Resistor Inspector Relationship Specialty Start Date End Date Cristy Parikh PA [address] [place] [address] PCP - General Physician Manager Speech 02/08/25 Doug Dong MD [address] [place] [address] [email or web address] Pediatric Cardiology 06/17/23 Additional Source Comments The information contained in this document represents components of the legal health record. It is not the complete legal health record.[facility]
--- OUTSIDE RECORDS SUMMARY | 2025-03-26 15:45 | XMS_ITS | Encounter Summary ---
Author Organization [facility] Address [address] [place] [address] Phone Care Team Providers Care Auto Tire Recapper Name Role Phone Lili Bliss MD Primary Care Provider Unavailabl e Encounter Details Date Type Department Care Team (Late st Contact Info) Description 03/04/2017 Documentation [facility] [place] Family Medicine [address] [place] [address] Family Medicine, Physician [address] [place] [address] Social History Tobacco Use Types Packs/Day Years [...] filedocumented in this encounter Care Teams Auto Tire Recapper Relationship Specialty Start Date End Date Lili Bliss MD PCP - General 02/26/17 documented as of this encounter
--- OUTSIDE RECORDS SUMMARY | 2025-03-26 15:45 | XMS_ITS | Encounter Summary ---
Author Organization [facility] Address [address] [place] [address] Phone Care Team Providers Care Gearcase Assembler Name Role Phone Lili Bliss MD Primary Care Provider Unavailabl e Encounter Details Date Type Department Care Team (Late st Contact Info) Description 06/22/2010 Documentation [facility] [place] Family Medicine [address] [place], [place] [id number] Family Medicine, Physician [address] [place], [place] [address] Social History Tobacco Use Types Packs/Day Years [...] on filedocumented in this encounter Care Teams Gearcase Assembler Relationship Specialty Start Date End Date Lili Bliss MD PCP - General 02/26/17 documented as of this encounter
--- OUTSIDE RECORDS SUMMARY | 2025-03-26 15:45 | XMS_ITS | Encounter Summary ---
Author Organization [facility] Address [address] [place] [address] [address] [place] [address] Phone Care Team Providers Care Head Filter Press Tender Name Role Phone Pcp, Unknown Primary Care Provider Nidia Nobles INSTRUCTIONAL COORDINATOR Primary Care Prov ider Doug Dong MD Unavailable [phone] Darwin Shultz CONSTRUCTION PIT WORKER Primary Care Provider [phone] Cristy Parikh Primary Care Provider +1- [phone] Encounter Details Date Type Department Care Team (Late st Contact Info) Description 03/31/2023 Procedure Pass [facility], Ct Scan - [address] [id number] Social History Tobacco Use Types Packs/Day Years [...] 5:59 PM EDT Telly Hector RN * [place] Suicide Severity Rating Scale (Screener/Recent Self-Report) Question [...] on filedocumented in this encounter Care Teams Head Filter Press Tender Relationship Specialty Start Date End Date Pcp, Unknown PCP - General 03/31/23 04/18/23 Nidia Peoples FNP [address] [place] [address] [address] [place] [address] PCP - General 04/19/23 09/20/23 Darwin Shulzt NP [address] [place] [address] PCP - General Nurse Practitioner 09/21/23 02/07/25 Cristy Parikh PA [address] [place] [address] [address] [place] [address] PCP - General Physician Communications Programmer 02/08/25 Doug Dong MD [address] [place] [address] [email or web address] Pediatric Cardiology 06/17/23 documented as of this encounter Additional Source Comments The information contained in this document represents components of the legal health record. It is not the complete legal health record.[facility]
--- OUTSIDE RECORDS SUMMARY | 2025-03-26 15:45 | XMS_ITS | Clinical Summary ---
Author Organization [facility] Address [address] [place] [address] Phone Care Team Providers Care Dealer Relationship Manager Name Role Phone Lili Bliss MD [...] of Deafness, No family history of *Sudden /[place] under 55, No family history of *Thrombophilia, [...] complete this topic Procedures * Due to [place] [employer] law, this organization might not be sharing sensitive test results. Procedure Name Priority Date/Time Associated Diagnosis Comments CHLAMYDIA AND GONORRHEA, AMPLIFIED Routine 07/22/2015 1:17 PM EST from Last 3 Months or Most Recently Relevant to Health Maintenance Results * Due to [place] state law, this organization might not be sharing sensitive test results. * Chlamydia and Gonorrhoea, Amplified (07/22/2015 1:17 PM EST) Pathologist [facility] URINE CHLAMYDIA AMP PROBE NEGATIVE [facility] Comment: No Chlamydia Trachomatis RNA detected in this patient's sample (REFERENCE RANGE/NORMAL VALUE: NOT DETECTED) URINE GC AMP PROBE NEGATIVE [facility] Comment: No Neisseria Gonorrhoeae RNA detected in this patient's sample (REFERENCE RANGE/NORMAL VALUE: NOT DETECTED) NOTE: This test uses perfumer-mediated amplification method to detect rRNA from C.Trachomatis [...] without risk of sexual abuse. Consult the [facility] if needed. Contact phone number . Therapeutic failure or success cannot be determined with the Aptima Combo2 assay since nucleic acid may persist following appropriate antimicrobial therapy. The Centers for Disease Control and Prevention (CDC) recommends confirmatory retesting using culture or a different nucleic acid amplification test when positive results occur, if indicated. Testing performed or reported by [facility], [facility], a Service of [facility], [facility] [place] [address] [facility] [id number] Joey Coles MD, PhD, Travel Counselor [employer] 07/22/2015 1:17 PM EST Narrative [facility] - 07/22/2015 1:17 PM EST URINE CHLAMYDIA GC AMP PROBE us Lili Bliss MD LAB MICROBIOLOGY - GENERAL ORDER HEIDI Final Result [facility] [address] [place], [place] [address], from Last 3 Months or Most Recently Relevant to Health Maintenance Care Teams Dealer Relationship Manager Relationship Specialty Start Date End Date Lili Bliss MD PCP - General 02/26/17
--- OUTSIDE RECORDS SUMMARY | 2025-03-26 15:45 | XMS_ITS | Encounter Summary ---
Author Organization [employer] Address [address] [place] [address] Care Team Providers Care Revenue Settlements Administrator Name Role Phone Unavailable Primary Care Provider Unavailabl e Encounter Details Date Type Department Care Team (Latest Contact Info) Description 08/09/2018 Abstract [facility] CONVERSIONS Dental, Provider, DDS Social History [...]
--- OUTSIDE RECORDS SUMMARY | 2025-03-26 15:45 | XMS_ITS | Encounter Summary ---
Author Organization [facility] Address [address] [place] [address] Phone Care Team Providers Care Sap Portal Architect Name Role Phone Lili Bliss MD Primary Care Provider Unavailabl e Encounter Details Date Type Department Care Team (Late st Contact Info) Description 12/23/2015 Documentation [facility] Family Medicine [address] [place] [address] Family Medicine, Physician [address] [place], [place] [address] Social History Tobacco Use Types Packs/Day Years [...] filedocumented in this encounter Care Teams Sap Portal Architect Relationship Specialty Start Date End Date Lili Bliss MD PCP - General 02/26/17 documented as of this encounter
--- OUTSIDE RECORDS SUMMARY | 2025-03-26 15:45 | XMS_ITS | Clinical Summary ---
Author Organization [employer] Address [address] [place] [address] [address] [place] [address] Care Team Providers Care Wire Annealer Name Role Phone Unavailable Primary Care Provider [...] COVID-19 Vaccine (1 - 2023-2 5 season) 2025 Influenza Vaccine (#1) 2025 Zoster Vaccines (1 [...]
--- OUTSIDE RECORDS SUMMARY | 2025-03-26 15:45 | XMS_ITS | Encounter Summary ---
Author Organization [facility] Address [address] [place] [address] Phone Care Team Providers Care Public Records Officer Name Role Phone Lili Bliss MD Primary Care Provider Unavailabl e Encounter Details Date Type Department Care Team (Late st Contact Info) Description 03/04/2017 Documentation [facility] Family Medicine [address] [place] [address] Family Medicine, Physician [address] [place] [address] Social History Tobacco Use Types Packs/Day Years [...] filedocumented in this encounter Care Teams Public Records Officer Relationship Specialty Start Date End Date Lili Bliss MD PCP - General 02/26/17 documented as of this encounter
--- OUTSIDE RECORDS SUMMARY | 2025-03-26 15:45 | XMS_ITS | Encounter Summary ---
Author Organization [facility] Address [address] [place] [address] Phone Care Team Providers Care Primer Assembler Name Role Phone Lili Bliss MD Primary Care Provider Unavailabl e Encounter Details Date Type Department Care Team (Late st Contact Info) Description 06/22/2010 Documentation [facility] Family Medicine [address] [place], [place] [phone] Family Medicine, Physician [address] [place], [place] [address]591 Social History Tobacco Use Types Packs/Day Years [...] on filedocumented in this encounter Care Teams Primer Assembler Relationship Specialty Start Date End Date Lili Bliss MD PCP - General 02/26/17 documented as of this encounter
--- OUTSIDE RECORDS SUMMARY | 2025-03-26 15:45 | XMS_ITS | Encounter Summary ---
Author Organization [facility] Address [address] [place] [address] Phone Care Team Providers Care Overcoiler Name Role Phone Lili Bliss MD Primary Care Provider Unavailabl e Encounter Details Date Type Department Care Team (Late st Contact Info) Description 10/28/2009 Documentation [facility] Family Medicine [address] [place] [address] Family Medicine, Physician [address] [place], [place] [phone] Social History Tobacco Use Types Packs/Day Years [...] on filedocumented in this encounter Care Teams Overcoiler Relationship Specialty Start Date End Date Lili Bliss MD PCP - General 02/26/17 documented as of this encounter
--- OUTSIDE RECORDS SUMMARY | 2025-03-26 15:45 | XMS_ITS | Encounter Summary ---
Author Organization [facility] Address [address] [place] [address] Phone Care Team Providers Care Life Trainer Name Role Phone Lili Bliss MD Primary Care Provider Unavailabl e Encounter Details Date Type Department Care Team (Late st Contact Info) Description 02/02/2014 Documentation [facility] [place] Family Medicine [address] [place] [address] Family Medicine, Physician [address] [place], [place] [address]38[address] Social History Tobacco Use Types Packs/Day Years [...] on filedocumented in this encounter Care Teams Life Trainer Relationship Specialty Start Date End Date Lili Bliss MD PCP - General 02/26/17 documented as of this encounter
--- OUTSIDE RECORDS SUMMARY | 2025-03-26 15:46 | XMS_ITS | Encounter Summary ---
Author Organization [facility] Address [address] [place] [address] Phone Care Team Providers Care Sales Representative Metals Name Role Phone Lili Bliss MD Primary Care Provider Unavailabl e Encounter Details Date Type Department Care Team (Late st Contact Info) Description 03/04/2017 Conversion Encounter [facility] - [address] [address] Social History Tobacco Use Types Packs/Day Years [...] on filedocumented in this encounter Care Teams Sales Representative Metals Relationship Specialty Start Date End Date Lili Bliss MD PCP - General 02/26/17 documented as of this encounter
--- OUTSIDE RECORDS SUMMARY | 2025-03-26 15:46 | XMS_ITS | Encounter Summary ---
Author Organization [facility] Address [address] [place] [address] Phone Care Team Providers Care Customer Solutions Coordinator Name Role Phone Lili Bliss MD Primary Care Provider Unavailabl e Encounter Details Date Type Department Care Team (Late st Contact Info) Description 02/11/2017 Documentation [facility] Family Medicine [address] [place] [address] Family Medicine, Physician [address] [place] [address] Social History Tobacco Use Types Packs/Day Years [...] on filedocumented in this encounter Care Teams Customer Solutions Coordinator Relationship Specialty Start Date End Date Lili Bliss MD PCP - General 02/26/17 documented as of this encounter
== END 2025-03-26 13:45 | disposition home or self-care (01) ==
LOC: HO.ENCR 13:31
PROVIDERS: PCP Physician Assistant; Visit Provider Student in an Organized Health Care Education/Training Program
DX: E05.90 Thyrotoxicosis, unspecified without thyrotoxic crisis or storm (principal); R79.89 Other specified abnormal findings of blood chemistry; E04.2 Nontoxic multinodular goiter
CPT/HCPCS: 99213

== ENCOUNTER → 2025-03-26 13:30 | Outpatient (BNVA) | payer OTHER, SELFPAY | PROVIDERS: PCP Physician Assistant; Visit Provider Student in an Organized Health Care Education/Training Program | DX: E04.2 Nontoxic multinodular goiter (principal); E05.90 Thyrotoxicosis, unspecified without thyrotoxic crisis or storm | CPT/HCPCS: 99212 ==

== ENCOUNTER 2025-03-27 14:03 | Outpatient (REF) | payer OTHER, SELFPAY ==
[2025-03-27 14:18] LABS: MANUAL DIFF FLAG NO
[2025-03-27 14:44] LABS: Hematocrit 39.3 % (37.0-47.0); Hemoglobin 12.5 g/dl (12.0-16.0); Imm Gran Abs Auto 0.01 X10*3/uL (0.00-0.03); Imm Gran Pct Auto 0.2 % (0.0-0.4); Lymphocytes Absolute Auto 1.6 X10*3/uL (1.2-4.9); Mean Corpuscular HGB Conc 31.8 g/dl (31.0-35.0); Mean Corpuscular Hemoglobin 26.7 pg (27.0-33.0); Mean Corpuscular Volume 84.0 fL (80.0-98.0); NRBC Abs Auto 0.000 X10*3/uL (0.0-0.012); NRBC Pct Auto 0.0 /100WBC (0.0-0.2); Platelet Count 199 X10*3/uL (160-400); Red Blood Count 4.68 X10*6/uL (4.20-5.50); White Blood Count 5.1 X10*3/uL (4.8-10.8)
[2025-03-27 15:21] LABS: Alanine Aminotransferase 10 U/L (0-31); Albumin Level 4.6 g/dL (3.5-5.0); Alkaline Phosphatase 77 U/L (39-117); Anion Gap 11 (12-20); Aspartate Amino Transferase 18 U/L (5-31); Blood Urea Nitrogen 7 mg/dL (9-16); Calcium 8.7 mg/dL (8.4-10.2); Carbon Dioxide 27 mmol/L (22-29); Chloride 107 mmol/L (96-108); Estimated Glomerular Filt Rate > 60; Iron 44 mcg/dL (30-160); Percent Iron Saturation 13 % (15-50); Potassium 3.9 mmol/L (3.3-5.1); Sodium 141 mmol/L (135-145); Total Iron Binding Capacity 351 mcg/dL (228-428); Total Protein 7.6 g/dL (6.5-8.0); Unsaturated Iron Binding 307 ug/dL
[2025-03-27 15:38] LABS: Ferritin 5 ng/mL (10-122)
[2025-03-27 15:47] LABS: Folate 11.1 ng/mL (> or = 4.0); Vitamin B12 349 pg/mL (200-900)
--- OUTSIDE RECORDS SUMMARY | 2025-03-27 16:42 | XMS_ITS | Encounter Summary ---
Author Organization [facility] Address [address] [place] [address] Phone Care Team Providers Care Industrial Electrician Name Role Phone Lili Bliss MD Primary Care Provider Unavailabl e Encounter Details Date Type Department Care Team (Late st Contact Info) Description 12/04/2009 Documentation [facility] Family Medicine [address] [place] [address] Family Medicine, Physician [address] [place], [place] [phone] Social History Tobacco Use Types Packs/Day Years [...] on filedocumented in this encounter Care Teams Industrial Electrician Relationship Specialty Start Date End Date Lili Bliss MD PCP - General 02/26/17 documented as of this encounter
--- OUTSIDE RECORDS SUMMARY | 2025-03-27 16:42 | XMS_ITS | Encounter Summary ---
Author Organization [facility] Address [address] [place] [address] Phone Care Team Providers Care Shift Leader Name Role Phone Lili Bliss MD Primary Care Provider Unavailabl e Encounter Details Date Type Department Care Team (Late st Contact Info) Description 02/02/2014 Documentation [facility] [place] Family Medicine [address] [place] [address] Family Medicine, Physician [address] [place], [place] [address] Social History Tobacco Use Types Packs/Day Years [...] on filedocumented in this encounter Care Teams Shift Leader Relationship Specialty Start Date End Date Lili Bliss MD PCP - General 02/26/17 documented as of this encounter
--- OUTSIDE RECORDS SUMMARY | 2025-03-27 16:42 | XMS_ITS | Encounter Summary ---
Author Organization [facility] Address [address] [place] [address] Phone Care Team Providers Care Vibrating Screen Operator Name Role Phone Lili Bliss MD Primary Care Provider Unavailabl e Encounter Details Date Type Department Care Team (Late st Contact Info) Description 03/04/2017 Documentation [facility] Family Medicine [address] [place] [address] Family Medicine, Physician [address] [place] [address] Social History Tobacco Use Types Packs/Day Years [...] on filedocumented in this encounter Care Teams Vibrating Screen Operator Relationship Specialty Start Date End Date Lili Bliss MD PCP - General 02/26/17 documented as of this encounter
--- OUTSIDE RECORDS SUMMARY | 2025-03-27 16:42 | XMS_ITS | Clinical Summary ---
Author Organization [facility] Address [address] [place] [address] Phone Care Team Providers Care Nutritional Health Coach Name Role Phone Lili Bliss MD Primary [...] of Deafness, No family history of *Sudden /[place] under 55, No family history of *Thrombophilia, [...] this topic Procedures * Due to [place] [employer] law, this organization might not be sharing sensitive test results. Procedure Name Priority Date/Time Associated Diagnosis Comments CHLAMYDIA AND GONORRHEA, AMPLIFIED Routine 07/22/2015 1:17 PM EST from Last 3 Months or Most Recently Relevant to Health Maintenance Results * Due to [place] state law, this organization might not be sharing sensitive test results. * Chlamydia and Gonorrhoea, Amplified (07/22/2015 1:17 PM EST) Pathologist [facility] URINE CHLAMYDIA AMP PROBE NEGATIVE [facility] Comment: No Chlamydia Trachomatis RNA detected in this patient's sample (REFERENCE RANGE/NORMAL VALUE: NOT DETECTED) URINE GC AMP PROBE NEGATIVE [facility] Comment: No Neisseria Gonorrhoeae RNA detected in this patient's sample (REFERENCE RANGE/NORMAL VALUE: NOT DETECTED) NOTE: This test uses video control engineer-mediated amplification method to detect rRNA from C.Trachomatis [...] without risk of sexual abuse. Consult the [facility] if needed. Contact phone number . Therapeutic failure or success cannot be determined with the Aptima Combo2 assay since nucleic acid may persist following appropriate antimicrobial therapy. The Centers for Disease Control and Prevention (CDC) recommends confirmatory retesting using culture or a different nucleic acid amplification test when positive results occur, if indicated. Testing performed or reported by [facility], a Service of [facility], [facility] [place] [address] [facility] [id number] Joey Coles MD, PhD, Landscape Technician 07/22/2015 1:17 PM EST Narrative [facility] - 07/22/2015 1:17 PM EST URINE CHLAMYDIA GC AMP PROBE us Lili Bliss MD LAB MICROBIOLOGY - GENERAL ORDER HEIDI Final Result [facility] [address] [place], [place] [address], from Last 3 Months or Most Recently Relevant to Health Maintenance Care Teams Nutritional Health Coach Relationship Specialty Start Date End Date Lili Bliss MD PCP - General 02/26/17
--- OUTSIDE RECORDS SUMMARY | 2025-03-27 16:42 | XMS_ITS | Encounter Summary ---
Author Organization [facility] Address [address] [place] [address] [address] [place] [address] Phone Care Team Providers Care Manager Trainee Name Role Phone Pcp, Unknown Primary Care Provider Nidia Nobles AGRICULTURAL SPECIALIST Primary Care Prov ider Doug Dong MD Unavailable [phone] Darwin Shultz DENTURE FINISHER Primary Care Provider [phone] Cristy Parikh Primary Care Provider +1- [phone] Encounter Details Date Type Department Care Team (Late st Contact Info) Description 03/31/2023 Procedure Pass [facility], Ct Scan - [address] [id number] Social History Tobacco Use Types Packs/Day Years [...] 5:59 PM EDT Telly Hector RN * [place] Suicide Severity Rating Scale (Screener/Recent Self-Report) Question [...] on filedocumented in this encounter Care Teams Manager Trainee Relationship Specialty Start Date End Date Pcp, Unknown PCP - General 03/31/23 04/18/23 Nidia Peoples FNP [address] [place] [address] [address] [place] [address] PCP - General 04/19/23 09/20/23 Darwin Shultz NP [address] [place] [address] PCP - General Nurse Practitioner 09/21/23 02/07/25 Cristy Parikh PA [address] [place] [address] [address] [place] [address] PCP - General Physician Card Painter 02/08/25 Doug Dong MD [address] [place] [address] [email or web address] Pediatric Cardiology 06/17/23 documented as of this encounter Additional Source Comments The information contained in this document represents components of the legal health record. It is not the complete legal health record.[facility]
--- OUTSIDE RECORDS SUMMARY | 2025-03-27 16:42 | XMS_ITS | Encounter Summary ---
Author Organization [facility] Address [address] [place] [address] Phone Care Team Providers Care Marine Mammal Trainer Name Role Phone Lili Bliss MD Primary Care Provider Unavailabl e Encounter Details Date Type Department Care Team (Late st Contact Info) Description 03/04/2017 Documentation [facility] [address] [place] [address] Family Medicine, Physician [address] [place] [address] Social History Tobacco Use Types Packs/Day Years [...] on filedocumented in this encounter Care Teams Marine Mammal Trainer Relationship Specialty Start Date End Date Lili Bliss MD PCP - General 02/26/17 documented as of this encounter
--- OUTSIDE RECORDS SUMMARY | 2025-03-27 16:42 | XMS_ITS | Encounter Summary ---
Author Organization [facility] Address [address] [place] [address] Phone Care Team Providers Care Delivery And Mail Sorter Name Role Phone Lili Bliss MD Primary Care Provider Unavailabl e Encounter Details Date Type Department Care Team (Late st Contact Info) Description 03/04/2017 Conversion Encounter [facility] - [address] [address] Social History Tobacco Use Types Packs/Day Years [...] on filedocumented in this encounter Care Teams Delivery And Mail Sorter Relationship Specialty Start Date End Date Lili Bliss MD PCP - General 02/26/17 documented as of this encounter
--- OUTSIDE RECORDS SUMMARY | 2025-03-27 16:42 | XMS_ITS | Encounter Summary ---
Author Organization [facility] Address [address] [place] [address] Phone Care Team Providers Care Personalization Specialist Name Role Phone Lili Bliss MD Primary Care Provider Unavailabl e Encounter Details Date Type Department Care Team (Late st Contact Info) Description 02/11/2017 Documentation [facility] [place] [address] [place] [address] Family Medicine, Physician [address] [place] [address] Social History Tobacco Use Types Packs/Day Years [...] on filedocumented in this encounter Care Teams Personalization Specialist Relationship Specialty Start Date End Date Lili Bliss MD PCP - General 02/26/17 documented as of this encounter
--- OUTSIDE RECORDS SUMMARY | 2025-03-27 16:42 | XMS_ITS | Encounter Summary ---
Author Organization [facility] Address [address] [place] [address] Phone Care Team Providers Care Box Spring Frame Builder Name Role Phone Lili Bliss MD Primary Care Provider Unavailabl e Encounter Details Date Type Department Care Team (Late st Contact Info) Description 12/23/2015 Documentation [facility] Family Medicine [address] [place], [place] [phone] Family Medicine, Physician [address] [place], [place] [address]151 Social History Tobacco Use Types Packs/Day Years [...] on filedocumented in this encounter Care Teams Box Spring Frame Builder Relationship Specialty Start Date End Date Lili Bliss MD PCP - General 02/26/17 documented as of this encounter
--- OUTSIDE RECORDS SUMMARY | 2025-03-27 16:42 | XMS_ITS | Encounter Summary ---
Author Organization [facility] Address [address] [place] [address] Phone Care Team Providers Care Dip Dyer Name Role Phone Lili Bliss MD Primary Care Provider Unavailabl e Encounter Details Date Type Department Care Team (Late st Contact Info) Description 10/28/2009 Documentation [facility] [place] [address] [place] [address] Family Medicine, Physician [address] [place], [place] [id number] Social History Tobacco Use Types Packs/Day Years [...] on filedocumented in this encounter Care Teams Dip Dyer Relationship Specialty Start Date End Date Lili Bliss MD PCP - General 02/26/17 documented as of this encounter
--- OUTSIDE RECORDS SUMMARY | 2025-03-27 16:42 | XMS_ITS | Encounter Summary ---
Author Organization [facility] Address [address] [place] [address] Phone Care Team Providers Care Floral Arranger Name Role Phone Lili Bliss MD Primary Care Provider Unavailabl e Encounter Details Date Type Department Care Team (Late st Contact Info) Description 03/04/2017 Documentation [facility] [place] Family Medicine [address] [place] [address] Family Medicine, Physician [address] [place] [address] Social History Tobacco Use Types Packs/Day Years [...] on filedocumented in this encounter Care Teams Floral Arranger Relationship Specialty Start Date End Date Lili Bliss MD PCP - General 02/26/17 documented as of this encounter
--- OUTSIDE RECORDS SUMMARY | 2025-03-27 16:42 | XMS_ITS | Encounter Summary ---
Author Organization [facility] Address [address] [place] [address] Phone Care Team Providers Care Water Resource Consultant Name Role Phone Lili Bliss MD Primary Care Provider Unavailabl e Encounter Details Date Type Department Care Team (Late st Contact Info) Description 06/22/2010 Documentation [facility] Family Medicine [address] [place] [address] Family Medicine, Physician [address] [place], [place] [address] Social History Tobacco Use Types Packs/Day Years [...] on filedocumented in this encounter Care Teams Water Resource Consultant Relationship Specialty Start Date End Date Lili Bliss MD PCP - General 02/26/17 documented as of this encounter
--- OUTSIDE RECORDS SUMMARY | 2025-03-27 16:42 | XMS_ITS | Clinical Summary ---
Author Organization [facility] Address [address] [place] [address] [place] [address] Phone Care Team Providers Care Tissue Specialist Name Role Phone Doug Dong MD Unavailable [phone] Cristy Parikh Primary Care Provider [phone] Allergies Active Allergy Reactions Criticality Noted Date Comments Fluconazole Hives 06/15/2023 Medications No known medications Active Problems Problem Noted Date Diagnosed Date Aortic coarctation 06/15/2023 Bicuspid aortic valve 06/15/2023 Encounters Date Type Department Care Team Description 02/08/2025 11:43 AM EDT - 02/08/2025 2:43 PM EDT Emergency [facility] [address] [place] [address] Ismael Buchanan MD Noone, Caleb J, MD Discharge Disposition: Home or Self Care 02/08/2025 10:20 AM EDT Office Visit [facility] at [address] [address] Bety Hathaway CNP Chest pain, unspecified type [...] clinician's provided indication for this examination in [facility]: Pain; chest pressure COMPARISON: XR CHEST [...] clinician's provided indication for this examination in [facility]:Pain; chest pressure COMPARISON: XR CHEST PA [...] PM EDT) D-DIMER 394 <500 ng/mL FEU [facility] Comment:In patients with low to moderate pre-test probability scores for VTE (PE or DVT), a D-Dimer cut-off less than 500 ng/mL (FEU) has a negative predictive value (NPV) of 97 to 100%. Blood 02/08/2025 12:2 8 PM EDT 02/08/2025 12:40 PM EDT us Ismael Buchanan MD LAB BLOOD ORDERABLES Fin al Result Performing Organization Address [facility]/ZIP Co de Phone Number [address] [address] * Troponin (02/08/2025 12:28 PM EDT) Only the most recent of2 resultswithin the time period is included. Troponin-T, HS Gen5 <6 0 - 9 ng/L [facility] Blood 02/08/2025 12:2 8 PM EDT 02/08/2025 12:48 PM EDT us Ismael Buchanan MD LAB BLOOD ORDERABLES Fin al Result Performing Organization Address [facility] de Phone Number [address] [address] * HCG, urine (02/08/2025 12:09 PM EDT) URINE TEST Negative Negative [facility] Urine (Urine) 02/08/2025 12: 09 PM EDT 02/08/2025 12:16 PM EDT us Ismael Buchanan MD URINE ORDERABLES Final R esult Performing Organization Address [facility] Co de Phone Number [address] [address] * (ABNORMAL) CBC and differential (02/08/2025 11:25 AM EDT) WBC 6.33 4.00 - 11.00 K/uL [facility] RBC 4.93 4.00 - 5.20 M/uL [facility] HGB 13.1 12.0 - 16.0 g/dL [facility] HCT 40.6 36.0 - 46.0 % [facility] PLT 193 150 - 450 K/uL [facility] MCV 82.4 80.0 - 100.0 fL [facility] MCH 26.6(L) 27.0 - 31.0 pg [facility] MCHC 32.3 32.0 - 36.0 g/dL [facility] RDW 13.5 11.5 - 14.5 % [facility] MPV 10.4 8.4 - 12.0 fL [facility] NRBC 0.00 0.00 /100 WBCs [facility] ABSOLUTE NRBC 0.00 0.00 K/uL [facility] DIFF METHOD Auto [facility] NEUTS 71.9 48.0 - 76.0 % [facility] LYMPHS 19.3 18.0 - 41.0 % [facility] MONOS 6.2 4.0 - 11.0 % [facility] EOS 2.1 0.0 - 5.0 % [facility] BASOS 0.3 0.0 - 1.5 % [facility] Granulocytes, immature (%) 0.2 0.0 - 0.9 % [facility] ABSOLUTE NEUTS 4.56 1.92 - 7.60 K/uL [facility] ABSOLUTE LYMPHS 1.22 0.72 - 4.10 K/uL [facility] ABSOLUTE MONOS 0.39 0.16 - 1.10 K/uL [facility] ABSOLUTE EOS 0.13 0.00 - 0.50 K/uL [facility] ABSOLUTE BASOS 0.02 0.00 - 0.15 K/uL [facility] Granulocytes, immature 0.01 0.00 - 0.09 K/uL [facility] Blood 02/08/2025 11:2 5 AM EDT 02/08/2025 11:34 AM EDT us Ismael Buchanan MD LAB BLOOD ORDERABLES Fin al Result [facility] [address] [place] [address] * Basic metabolic panel (02/08/2025 11:25 AM EDT) SODIUM 137 133 - 146 mmol/L [facility] CHLORIDE 104 96 - 108 mmol/L [facility] POTASSIUM 3.8 3.3 - 5.1 mmol/L [facility] CO2 23 21 - 35 mmol/L [facility] BUN 9 6 - 19 mg/dL [facility] CREATININE 0.60 0.5 - 1.5 mg/dL [facility] GLUCOSE 88 70 - 99 mg/dL [facility] CALCIUM 9.0 8.4 - 10.3 mg/dL [facility] EGFR >120 >59 mL/min/1.7 3m2 [facility] Comment:Estimated glomerular filtration rate calculated using the CKD-EPI refit equation. ANION GAP 14 10 - 20 mmol/L [facility] Blood 02/08/2025 11:2 5 AM EDT 02/08/2025 11:34 AM EDT us Ismael Buchanan MD LAB BLOOD ORDERABLES Fin al Result Performing Organization Address [facility]/ZIP Co de Phone Number [address] [address] * ECG 12-LEAD (02/08/2025 11:16 AM EDT) Ventricular Rate EKG/MIN 69 BPM [facility] Atrial Rate 69 BPM [facility] WA Interval 174 ms [facility] QRS Duration 74 ms [facility] QT Interval 374 ms [facility] QTC Interval 400 ms [facility] P [place] 55 degrees [facility] R Wave [place] 49 degrees [facility] T Wave [place] 36 degrees [facility] 02/08/2025 11:1 6 AM EDT 02/08/2025 11:49 AM EDT Narrative [facility] - 02/08/2025 11:49 AM EDT Sinus rhythm with occasional Premature ventricular complexes Otherwise normal ECG When compared with ECG of 31-Mar-2023 10:32, Premature ventricular complexes are now Present Confirmed by Hilton Daugherty ([id number]) on 02/08/2025 11:49:55 AM us Ismael Buchanan MD ECG ORDERABLES Final Re sult Performing Organization Address [facility]/ZIP Co de Phone Number [facility] from Last [address] [place] [address] [place] [address] HMO ACO ACO ACO Member Subscriber Plan / Payer (Ef fective 2022-Present) Name:Tereza Strickland Relation to Subscriber:Self Name:Tereza Strickland Payer ID:[id number] Group ID:[id number] Type:Medicaid Address: [address] [place] [address] ACO ACO Member Subscriber Plan / Payer (Ef fective 2022-Present) Name:Tereza Strickland Relation to Subscriber:Self Name:Tereza Strickland Payer ID:[id number] Group ID:[id number] Type:Medicaid Address: [address] [place] [address] [facility] [place] [address] HMO Care Teams Tissue Specialist Relationship Specialty Start Date End Date Cristy Parikh PA [address] [place] [id number] PCP - General Physician Computer Science Instructor 02/08/25 Doug Dong MD [address] [place] [address] [email or web address] Pediatric Cardiology 06/17/23 Additional Source Comments The information contained in this document represents components of the legal health record. It is not the complete legal health record.[facility]
--- OUTSIDE RECORDS SUMMARY | 2025-03-27 16:42 | XMS_ITS | Encounter Summary ---
Author Organization [facility] Address [address] [place] [phone] Phone Care Team Providers Care Truck Rental Service Attendant Name Role Phone Lili Bliss MD Primary Care Provider Unavailabl e Encounter Details Date Type Department Care Team (Late st Contact Info) Description 06/22/2010 Documentation [facility] [place] [address] [place] [address] Family Medicine, Physician [address] [place], [place] [id number] Social History Tobacco Use Types Packs/Day Years [...] on filedocumented in this encounter Care Teams Truck Rental Service Attendant Relationship Specialty Start Date End Date Lili Bliss MD PCP - General 02/26/17 documented as of this encounter
== END 2025-03-27 14:04 | disposition home or self-care (01) ==
LOC: HO.LAB 14:03
PROVIDERS: PCP Physician Assistant; Visit Provider Physician Assistant
DX: R53.83 Other fatigue (principal); D64.9 Anemia, unspecified; G47.9 Sleep disorder, unspecified
CPT/HCPCS: 36415; 80053; 82306; 82607; 82728; 82746; 83540; 85025